=== PATIENT | female | born 1955 | race Caucasian/White ===

== ENCOUNTER 2025-02-06 09:45 | Outpatient (AMB) | payer OTHER, SELFPAY ==
--- OUTSIDE RECORDS SUMMARY | 2025-02-06 10:06 | XMS_ITS | Clinical Summary ---
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 1 HOUR PRIOR TO APPOINTMENT 02/05/20 24 Active ARIPiprazole (ABILIFY) 5 mg tablet Take 1 tablet (5 mg total) by mouth 1 (one) time each day. MOOD STABILITY 11/03/19 24 Active B complex tablet Take 1 tablet by mouth 1 (one) time each day. Active cholecalcifero l (VITAMIN D-3) 25 mcg (1,000 unit) tablet Take 1 tablet (1,000 Units total) by mouth 1 (one) time each day. 12/22/19 24 Active DULoxetine (CYMBALTA) [address] capsule Take 1 capsule (60 mg total) by mouth 2 (two) times a day. 02/19/20 21 Active fluticasone propionate (FLONASE) 50 mcg/actuation nasal spray Administer 1 spray into each nostril 2 (two) times a day if needed. for nasal congestion 02/13/20 24 Active guanFACINE (TENEX) 1 mg tablet Take 1.5 tablets (1.5 mg total) by mouth at bedtime. 01/18/20 24 Active hydrOXYzine HCL (ATARAX) 50 mg tablet Take 1 tablet (50 mg total) by mouth 2 (two) times a day if needed for anxiety. 08/17/19 19 Active mirtazapine (REMERON) 15 mg tablet Take 1 tablet (15 mg total) by mouth at bedtime. Active nystatin (MYCOSTATIN) 100,000 unit/gram powder Apply topically. 1 layer to areas or skin redness/rash of skin folds 05/09/20 23 Active propranoloL (INDERAL) 20 mg tablet Take 1 tablet (20 mg total) by mouth 1 (one) time each day. Active ixekizumab (Taltz Autoinjector, 3 Pack,) 80 mg/mL injection 01/09/20 24 Active losartan (COZAAR) 100 mg tablet TAKE 1 TABLET BY MOUTH EVERYDAY AT BEDTIME 90 tablet 1 10/31/19 25 Active simvastatin (ZOCOR) 20 mg tablet TAKE 1 TABLET BY MOUTH EVERYDAY AT BEDTIME 90 tablet 1 10/31/19 25 Active ibuprofen (ADVIL,MOTRIN) 800 mg tablet TAKE 1 TABLET BY MOUTH THREE TIMES A DAY NEEDED FOR MILD PAIN 180 tablet 11/15/19 25 Active rOPINIRole (REQUIP) 4 mg tabletIndicati ons:restless leg syndrome Take 1 tablet (4 mg total) by mouth at bedtime. 90 tablet 12/19/19 25 Active pregabalin (LYRICA) 50 mg capsuleIndicat ions:Fibromyal eden Take 1 capsule (50 mg total) by mouth 2 (two) times a day. Max Daily Amount: 100 mg 180 capsule 12/19/19 25 Active ondansetron (ZOFRAN) 4 mg tablet Take 1-2 tablets (4-8 mg total) by mouth every 8 (eight) hours if needed for nausea. 60 tablet 1 12/19/19 25 Active omeprazole (PriLOSEC) [address] capsule Take 1 capsule (20 mg total) by mouth 1 (one) time each day. Do not crush or chew. 30 capsule 5 12/19/19 25 025 Active diclofenac (VOLTAREN) 75 mg EC tablet Take 1 tablet (75 mg total) by mouth 2 (two) times a day if needed (pain). Do not crush, chew, or split. 180 tablet 3 12/19/19 25 026 Active cyclobenzaprin e (FLEXERIL) 10 mg tabletIndicati ons:Lumbar disc disease Take 1 tablet (10 mg total) by mouth 3 (three) times a day if needed for muscle spasms. 90 tablet 2 12/19/19 25 025 Active amLODIPine (NORVASC) 10 mg tablet Take 1 tablet (10 mg total) by mouth 1 (one) time each day. 90 tablet 1 01/24/20 25 Active amLODIPine (NORVASC) 10 mg tablet TAKE 1 TABLET BY MOUTH EVERY DAY 90 tablet 1 07/26/20 24 025 Discontinued Active Problems Problem Noted Date Diagnosed Date Cocaine abuse in remission ([facility] V24, [facility] V28) 10/31/2024 Panic disorder 10/31/2024 Sacroiliac joint dysfunction of both sides 10/31 Insomnia 10/31/2024 Infrarenal abdominal aortic aneurysm (AAA) without rupture ([facility] V24) 10/31/2024 Overview (10/31/2024): 10/01/24: Elevated velocities in distal abdominal aorta & right common iliac artery may suggest significant stenosis 03/05/24: Proximal abdominal aorta measures 2.9 x 3.0 x 2.6 cm consistent with borderline aneurysm 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 Maldonado, podiatry Gastroesophageal reflux disease without esophagi tis 09/12/2018 Hydronephrosis 12/26/2017 Overview (06/17/2024): Dr. Emerson - 12/14/17 - ultrasound ordered, if worsening consider nuclear drainage study; follow-up 6 weeks 02/27/19 - right sided fullness stable on recent ultrasound, repeat ultrasound in one year 03/20/2020 - recent imaging with right mild calyectasis, no love hydronephrosis, improved residual; follow-up in 1 year with renal ultrasound prior Ascending aorta dilation ([facility] V24) 8 Overview (10/31/2024): 10/31/24: Ascending aorta is dilated (4.0 cm); Sinus of Valsalva is dilated (3.2 cm). Echo 10/2018 - 4cm dilation Echo 10/2017 - Ascending 4cm and transverse 3.2cm aorta dilation Severe obesity (BMI 35.0-39. 9) with comorbidity ([facility] V24, [facility] V28) 06/27/2017 Vitamin D deficiency 08/18/2016 Right shoulder pain 05/03/2016 Overview (06/17/2024): [facility] - 04/20/16 - right shoulder injection, followup as needed Fibromyalgia 10/04/2013 Overview (06/17/2024): Dr. Cannon 10/02/13 - Lyrica 25 mg 3 times a day; ropinirole 4 mg daily; MRI ordered; followup month 11/18/14 - Doing well, continue medications, f/u 6 months 05/12/15 - continue Lyrica and ropinorole; followup 6 months 05/25/17 - doing well on Requip for restless leg syndrome; try reducing Lyrica dose; follow-up 6 months Assessment & Plan (09/07/2024 12:50 PM EST): Orders: pregabalin (LYRICA) 50 mg capsule; Take 1 capsule (50 mg total) by mouth 2 (two) times a day. Max Daily Amount: 100 mg Ambulatory referral to Neurology; Future HTN (hypertension) 09/25/2012 Restless leg syndrome 04/05/2012 Overview (06/17/2024): Neuro - on Requip Anxiety 02/20/2010 Overview (06/17/2024): Dr. Salazar - Psychiatrist - [facility] Back pain 02/20/2010 Overview (06/17/2024): [facility] - 08/27/10 - postoperative, spondylotic, and degenerative disc changes of the lumbar spine are seen again. No new exiting or transversing nerve root impingement is noted. 05/19 - Fentanyl 12mcg prescribed 06/19 - Fentanyl too sedating; MS Contin 15 mg 3 times a day prescribed 10/16/13 - Referral to Dr. Gonzalez for consideration of surgery; may consider starting a neuromodulator 11/13/13 - large L1 - 2 disc herniation crowding the cauda equina; requesting opinion from Dr. Wilkinson to consider surgery 05/22 - Left L3-L5 medial branch blocks 09/29/15 - no response to radiofrequency ablation, continue current opioid regimen, Cymbalta, and Lyrica; follow-up 2-[address] Hahn - 03/29/16 - prednisone taper, Butrans patch instead of OxyContin, continue Percocet as needed; follow-up 2-[address] Fernandez 09/21/18 - surgical options discussed 10/24 - laminectomy Depression 02/20/2010 Knee pain 02/20/2010 Overview (06/17/2024): 04/23/10 - right TKR by Dr. Jimenez 09/21 - arthroscopic surgery by Dr. Elam 03/14/14 - knee injection 04/17/14 - planning for elective knee replacement surgery; joint aspiration performed Hyperlipidemia 02/20/2010 Assessment & Plan (09/07/2024 12:50 PM EST): Orders: Lipid panel with reflex to direct LDL; Future Resolved Problems Problem Noted Date Diagnosed Date Resolved Date Complication of surgical procedure 10/31/2024 10/31/2024 Encounters Date Type Department Care Team Description 12/28/2024 9:40 AM EDT Ancillary Procedure Orthopedic Surgery - [place] [address] [facility] [address] [place] [address] 12/28/2024 9:30 AM EDT Office Visit Orthopedic Surgery [facility] [address] [facility] 160 [place] [phone] Carrie Lundberg MD Arthritis of left shoulder (Primary Dx) 12/19/[address] [phone] Enoch Zapata MD Referral 12/18/2024 3:00 PM EDT Office Visit [address] [phone] Enoch Zapata MD Primary hypertension (Primary Dx); Pure hypercholesterolemia ; Encounter for long-term (current) use of medications; Prediabetes; Fibromyalgia; Nausea; Lumbar disc disease; Restless leg syndrome 12/10/2024 11:30 AM EDT Office Visit Vascular Surgery [facility] [address] [place] [phone] Raza Kingston MD Swelling of left lower extremity (Primary Dx); Left leg pain 12/06/2024 9:30 AM EDT Office Visit Orthopedic Surgery [facility] 175 [facility] 140 [place] [phone] Deonna Cook PA Carpal tunnel syndrome of right wrist (Primary Dx); [facility] arthritis 12/06/2024 Telephone Adult [address] [phone] Enoch Zapata MD Referral (Neurolgy) 11/28/[address] [phone] Enoch Zapata MD Referral (Rheumatology referral) 11/20/2024 Nurse Triage [address] [phone] Enoch Zapata MD Nausea; Nasal Congestion; Back Pain from Last 3 Months Immunizations Name Administration Dates Next Due Td Tetanus diptheria (Tdvax) 7yo and older 03/27 Tdap Tetanus diptheria acell ular pertussis (Boostrix; Adacel) 7yo and older 09/25/2012 Surgical History Surgery Date Site/Laterality Comments BACK SURGERY 2005 PROCEDURE: HISTORICAL BACK SURGERY; COMMENT: Dr. Rinaldi ANKLE SURGERY 2006 PROCEDURE: HISTORICAL ANKLE SURGERY; COMMENT: Dr. Dior KNEE SURGERY 2009 Right PROCEDURE: HISTORICAL KNEE SURGERY; COMMENT: Arthroscopic OTHER SURGICAL HISTORY 12/27/2013 PROCEDURE: ---- OTHER ----; COMMENT: L1 laminectomy KNEE SURGERY Left PROCEDURE: HISTORICAL KNEE SURGERY COLONOSCOPY 01/17/2018 PROCEDURE: HISTORICAL COLONOSCOPY; COMMENT: negative UPPER GASTROINTESTINAL ENDOSCOPY 01/17/2018 PROCEDURE: UPPER GI ENDOSCOPY/EXAM; COMMENT: gastric and duodenal ulcers UPPER GASTROINTESTINAL ENDOSCOPY 05/16/2018 PROCEDURE: MT UPPER GI ENDOSCOPY PERFORMED; COMMENT: complete resolution of ulcers OTHER SURGICAL HISTORY 10/2018 PROCEDURE: ---- OTHER ----; COMMENT: Laminectomy - Dr. Fernandez HYSTERECTOMY 07/08/2023 N/A PROCEDURE: HISTORICAL HYSTERECTOMY BREAST BIOPSY Right PROCEDURE: BX BREAST; PERC NEEDLE CORE W/IMAG GUID Medical History Medical History Date Comments Anxiety 02/20/2010 DX:Anxiety Depression 02/20/2010 DX:Depression Back pain 02/20/2010 DX:Back pain Knee pain 02/20/2010 DX:Knee pain Hyperlipidemia DX:Hyperlipidemi a Tobacco abuse 09/08/2011 DX:Tobacco abuse Restless leg syndrome 04/05/2012 DX:Restles s leg syndrome Abnormal mammogram 08/17/2012 DX:Abnormal m ammogram Fibroadenoma of breast 2012 DX:Fibroa denoma of breast Fibromyalgia 10/04/2013 DX:Fibromyalgia; COMMENT: Dr. Cannon 10/02/13 - Lyrica 25 mg 3 times a day; ropinirole 4 mg daily; MRI ordered; followup month Morbid obesity with BMI of 4 0.0-44.9, adult (CMS/HCC V24, CMS/HCC V28) 06/27/2017 DX:Morbid obesity wit h BMI of 40.0-44.9, adult ([facility]) Family History Medical History Relation Name Comments Heart attack Father Breast cancer Mother Breast cancer Other mat cousin Other: ca brain Son 1 Colon cancer Neg Hx Ovarian cancer Neg Hx Relation Name Status Comments Father (Age 57) [place] at age 57 Mother (Age 86) [place] Other mat cousin Son 1 Son 2 (Age 23) Brain canc er Social History Tobacco Use Types Packs/Day Years Used Date Smoking Tobacco: Former Smokeless Tobacco: Never Tobacco Cessation:Counseling Given: Not Answered Alcohol Use Standard Drinks/Week Comments No 0 (1 standard drink = 0.6 oz pur e alcohol) Comments No Sex and Gender Information Value Date Recorded Sex Assigned at Not on file Legal Sex Female 5:32 AM EST Gender Identity Not on file Sexual Orientation Not on file Obstetrics History Last Filed Vital Signs Vital Sign Reading Time Taken Comments Blood Pressure 122/70 12/18/2024 3:05 PM EDT Pulse 91 12/18/2024 3:05 PM EDT Temperature 36.9 C (98.5 F) 12/18/2024 3:05 PM EDT Respiratory Rate 16 12/18/2024 3:05 PM EDT Oxygen Saturation 95% 12/18/2024 3:05 PM EDT Inhaled Oxygen Concentration - - Weight 96.6 kg (213 lb) 12/28/2024 9:23 AM EDT Height 160 cm (5' 2.99 ) 12/28/2024 9:23 AM EDT Body Mass Index 37.74 12/28/2024 9:23 AM EDT Plan of Treatment Upcoming Encounters Date Type Department Care Team (Late st Contact Info) Description 02/12/2025 8:20 AM EDT Consult Gastroenterology - [place] 175 [facility] 175 [facility] 200 [place] [phone] Jihan Cronin, JULISSA 175 [facility] 200 [place] [address] 02/22/2025 11:15 AM EDT Office Visit Orthopedic Surgery - [place] 160 175 [facility] 160 [place] [phone] Carrie Lundberg MD 175 [facility] 160 [place] [address] 03/18/2025 7:45 AM EDT Ancillary Procedure [facility] [address] 300 [facility] 101 [place] [phone] 03/19/2025 11:30 AM EDT Office Visit [facility] [place] [address] [place] [address] Enoch Zapata MD [address] [place] [address] 03/29/2025 9:30 AM EDT Office Visit Vascular Surgery - [place] 300 [facility] [address] [place] [address] Raza Kingston MD 300 [facility] [address] [place] [address] 04/02/2025 9:00 AM EDT Office Visit Orthopedic Surgery [facility] 160 [address] [facility] 160 [place] [phone] Carrie Lundberg MD [address] [address] 05/07/2025 10:00 AM EDT Appointment Radiology Department - [address] [phone] Health Maintenance Due Date Last Done Comments COVID-19 Vaccine (#1) 1962 Hepatitis A Vaccines (1 of 2 - Risk 2-dose series) 1976 Zoster Vaccines (1 of 2) 1976 Pneumococcal Vaccine: 50+ Years (1 of 1 - PCV) 2007 RSV Immunization Adult Patients (1 - Risk 60-74 years 1-dose series) 2017 Social Influencers of Health Screening 07/11/2022 Influenza Vaccine (#1) 2025 Depression Screening 09/07/2025 09/07/2024 Falls Risk Assessment 09/07/2025 09/07/2024 Medicare Annual Wellness Visit 09/07/2025 09/07/2024 Hypertension/CHF/CAD Annual BMP Blood Test 12/18/2025 12/18/2024, 09/07/2024, 05/11/2024, Additional history exists Breast Cancer Screening 04/20/2026 04/20/2024, 04/20 Colorectal Cancer Screening: Colonoscopy 01/18/2028 01/17/2018 Osteoporosis Screening (Bone Density Screening) 12/04/2028 12/04/2018 Cholesterol Screening (Lipid Panel) 12/18/2029 12/18/2024, 09/07/2024, 02/02/2024, Additional history exists DTaP,Tdap,and Td Vaccines (3 - Td or Tdap) 03/27/2034 03/27/2024, 09/25/2012 Hepatitis C Screening Completed 06/11/2013 HIB Vaccines Aged Out No longer eligi ble based on patient's age to complete this topic HPV Vaccines Aged Out No longer eligi ble based on patient's age to complete this topic Hepatitis B Vaccines Aged Out No long er eligible based on patient's age to complete this topic IPV Vaccines Aged Out No longer eligi ble based on patient's age to complete this topic MMR Vaccines Aged Out No longer eligi ble based on patient's age to complete this topic Meningococcal ACWY Vaccine Aged Out N o longer eligible based on patient's age to complete this topic Meningococcal B Vaccine Aged Out No l onger eligible based on patient's age to complete this topic RSV Immunization Patients Under 20 months Aged Out No longer eligible based on patient's age to complete this topic Varicella Vaccines Aged Out No longer eligible based on patient's age to complete this topic Procedures Procedure Name Priority Date/Time Associated Diagnosis Comments US ARTHROCENTESIS ASP INJ JOINT MAJOR RIGHT Routine 12/28/2024 9:36 AM EDT Arthritis of left shoulder MT ARTHROCENTESIS/ASPIR ATION/INJECTION MAJOR JOINT/BURSA W/O U/S GUIDANCE Routine 12/28/2024 9:30 AM EDT Arthritis of left shoulder LIPID PANEL WITH REFLEX TO DIRECT LDL Routine 12/18/2024 3:48 PM EDT Pure hypercholesterolemia COMPREHENSIVE METABOLIC PANEL Routine 12/18/2024 3:48 PM EDT Primary hypertension Encounter for long-term (current) use of medications HEMOGLOBIN A1C Routine 12/18/2024 3:48 PM EDT Prediabetes MT ARTHROCENTESIS/ASPIR ATION/INJECTION SMALL JOINT/BURSA WO U/S GUIDANCE Routine 12/06/2024 9:30 AM EDT [facility] arthritis DIAGNOSTIC MAMMOGRAPHY INCLUDING CAD BILATERAL Routine 04/20/2024 10:18 AM EDT Unspecified lump in the right breast, unspecified quadrant [facility] DEXA AXIAL SKELETON Routine 12/04/2018 5:36 PM EDT Asymptomatic menopausal state COLONOSCOPY Routine 01/17/2018 HEPATITIS C SCREENING Routine 06/11/2013 from Last 3 Months or Most Recently Relevant to Health Maintenance Results * US Arthrocentesis Asp Inj Joint Major Right (12/28/2024 9:36 AM EDT) Anatomical Region Laterality Modality Extremity Right Ultrasound Narrative 12/28/2024 9:55 AM EDT PROCEDURE Left Glenohumeral injection for osteoarthritis. Risk including infection, post-injection steriod flare, hypopigmentation, neurovascular injury and fat atrophy, were thoroughly discussed with the patient. The patients understood the risks and gave verbal consent for the procedure. The posteriorlateral shoulder was prepped with Chloro-prep after anatomical landmarks where palpated and visualized with ultrasound. Ethyle chloride was used as to topical anesthetic. Then using a 23-gauge 3-1/2 inch needle lidocaine 2 mL was used as a local anesthetic. Kenalog 40 mg and lidocaine 3 cc were injected into the joint using sterile technique under ultrasound guidance without complications. The patient tolerated the procedure well. Aftercare was thoroughly discussed with the patient. Images were recorded and will permanently stored in patients medical record. us Carrie Lundberg MD IMG US PROCEDURES Final Result * MT ARTHROCENTESIS/ASPIRATION/INJECTION MAJOR JOINT/BURSA W/O U/S GUIDANCE (12/28/2024 9:30 AM EDT) Narrative Carrie Lundberg MD - 12/28/2024 9:30 AM EDT Carrie Lundberg MD 12/28/2024 9:55 AM L Inj/Asp: L glenohumeral Indications: pain Details: 22 G needle, posterior approach (guidance: US guided) Medications: 3 mL lidocaine 1 %; 40 mg triamcinolone acetonide 40 mg/mL Outcome: tolerated well, no immediate complications Informed Consent: Laterality: Left Relevant images/test results available and reviewed: yes Health status cleared: Yes Procedure/treatment, purpose, treatment alternatives, risks/potential complications and benefits explained: yes Risk/complications/benefits details: Risks include bleeding, infection, increase in pain Patient questions answered: yes Patient agrees, verbalizes understanding, and wants to proceed: yes Consent given by: Patient Informed consent discussion completed by Physician/ASAD with patient: Verbal Pre-procedure timeout performed: yes us Carrie Lundberg MD IN CLINIC/BEDSIDE ORDERABLES F inal Result * (ABNORMAL) Lipid panel with reflex to direct LDL (12/18/2024 3:48 PM EDT) Cholesterol 171 0 - 200 mg/dL LAB CHEMISTRY METHOD [facility]24 6[facility] Triglycerides 198(H) 0 - 150 mg/dL LAB CHEMISTRY METHOD 12/18/2024 6:59 PM [facility] HDL 55 >=40 mg/dL LAB CHEMISTRY METHOD 12/18/2024 6:59 PM [facility] LDL Calculated 76 0 - 100 mg/dL LAB CHEMISTRY METHOD 12/18/2024 6:59 PM [facility] VLDL Cholesterol Ricardo 39.6 mg/dL LAB CHEMISTRY METHOD 12/18/2024 6:59 PM [facility] Non HDL Chol. (LDL+VLDL) 116 <145 mg/dL LAB CHEMISTRY METHOD 12/18/2024 6:59 PM [facility] Chol/HDL Ratio 3.1 0.0 - 4.4 LAB CHEMISTRY METHOD 12/18/2024 6:59 PM [facility] Blood Venous blood specimen / Unknown Venipuncture / Unknown 12/18/2024 3:48 PM EDT 12/18/2024 3:48 PM EDT us Enoch Zapata MD LAB BLOOD ORDERABLES Final Resu lt Performing Organization Address City/[facility]/ZIP Co de Phone Number [facility] [address] [place] [address], [place] [phone] * Hemoglobin A1c (12/18/2024 3:48 PM EDT) Pathologist [facility] Hemoglobin A1C 5.7 <6.5 % LAB CHEMISTRY METHOD 12/18/2024 10:25 PM EDT [facility] Mean Bld Glu Estim. 117 mg/dL LAB CHEMISTRY METHOD 12/18/2024 10:25 PM EDT [facility] Blood Venous blood specimen / Unknown Venipuncture / Unknown 12/18/2024 3:48 PM EDT 12/18/2024 3:48 PM EDT us Enoch Zapata MD LAB BLOOD ORDERABLES Final Resu lt Performing Organization Address [facility]/ZIP Co de Phone Number [facility] [address] [place] [address], [place] [phone] * (ABNORMAL) Comprehensive metabolic panel (12/18/2024 3:48 PM EDT) [facility] Sodium 139 133 - 145 mmol/L LAB CHEMISTRY METHOD 12/18/2024 6:57 PM EDT [facility] Potassium 4.1 3.5 - 5.5 mmol/L LAB CHEMISTRY METHOD 12/18/2024 6:57 PM EDT [facility] Chloride 108 96 - 110 mmol/L LAB CHEMISTRY METHOD 12/18/2024 6:57 PM EDT [facility] CO2 25 21 - 32 mmol/L LAB CHEMISTRY METHOD 12/18/2024 6:57 PM EDT [facility] Anion Gap 6 3 - 11 LAB CHEMISTRY METHOD 12/18/2024 6:57 PM EDT [facility] Glucose 75 70 - 100 mg/dL LAB CHEMISTRY METHOD 12/18/2024 6:57 PM [facility] BUN 26(H) 5 - 25 mg/dL LAB CHEMISTRY METHOD 12/18/2024 6:57 PM [facility] Creatinine 0.83 0.50 - 1.10 mg/dL LAB CHEMISTRY METHOD 12/18/2024 6:57 PM [facility] eGFR 77 >=60 mL/min/1. 73m2 LAB CHEMISTRY METHOD 12/18/2024 6:57 PM [facility] Comment:Calculation based on the Chronic Kidney Disease Epidemiology Collaboration (CKD-EPI) equation refit without adjustment for race. BUN/Creatinine Ratio 31.3 LAB CHEMISTRY METHOD 12/18/2024 6:57 PM [facility] Calcium 9.6 8.5 - 10.5 mg/dL LAB CHEMISTRY METHOD 12/18/2024 6:57 PM [facility] AST (SGOT) 16 10 - 42 unit/L LAB CHEMISTRY METHOD 12/18/2024 6:57 PM [facility] ALT (SGPT) 23 10 - 60 unit/L LAB CHEMISTRY METHOD 12/18/2024 6:57 PM [facility] Alkaline Phosphatase 94 42 - 121 unit/L LAB CHEMISTRY METHOD 12/18/2024 6:57 PM [facility] Total Protein 7.0 6.0 - 8.0 g/dL LAB CHEMISTRY METHOD 12/18/2024 6:57 PM [facility] Albumin 3.8 3.2 - 5.0 g/dL LAB CHEMISTRY METHOD 12/18/2024 6:57 PM [facility] Total Bilirubin 0.5 0.0 - 1.4 mg/dL LAB CHEMISTRY METHOD 12/18/2024 6:57 PM [facility] Blood Venous blood specimen / Unknown Venipuncture / Unknown 12/18/2024 3:48 PM EDT 12/18/2024 3:48 PM EDT Enoch Zapata MD LAB BLOOD ORDERABLES Final Resu lt [facility] ([facility] [[email or web address] [address] [place] [address], [place] [phone] * MT ARTHROCENTESIS/ASPIRATION/INJECTION SMALL JOINT/BURSA WO U/S GUIDANCE (12/06/2024 9:30 AM EDT) Narrative Deonna Cook PA - 12/06/2024 9:30 AM EDT ANN Alfredo 12/06/2024 11:02 AM Hand / UE Inj/Asp: R thumb [facility] for osteoarthritis Indications: pain Details: 25 G needle, dorsal approach Medications: 40 mg triamcinolone acetonide 40 mg/mL; 0.5 mL lidocaine 1 % Informed Consent: Laterality: Right Relevant images/test results available and reviewed: yes Health status cleared: Yes Procedure/treatment, purpose, treatment alternatives, risks/potential complications and benefits explained: yes Risk/complications/benefits details: Risks of infection, thinning of the skin, skin discoloration discussed. Discussed the possibility of increased pain, mild redness and swelling at injection site. Discussed uncommon side effect of facial flushing after cortisone injection. Patient may use ice, Tylenol or ibuprofen if they can take it. Benefits pain management Patient questions answered: yes Patient agrees, verbalizes understanding, and wants to proceed: yes Consent given by: Patient Informed consent discussion completed by Physician/ASAD with patient: Verbal Pre-procedure timeout performed: yes Deonna JUAREZ IN CLINIC/BEDSIDE ORDERABLES Final Result * DIAGNOSTIC MAMMOGRAPHY INCLUDING CAD BILATERAL (04/20/2024 10:18 AM EDT) Anatomical Region Laterality Modality Mammography 04/02/2024 5:32 PM EDT Narrative 04/20/2024 10:30 AM EDT This is a summary report. The complete report is available in the patient's medical record. If you cannot access the medical record, please contact the sending organization for a detailed fax or copy. Bilateral Diagnostic Digital Mammogram; Right Breast Ultrasound History: 1.8 cm mass posterior right breast noted on LDCT on 03/28/2024. Full field digital tomosynthesis mammography, reviewed with CAD, compared to previous mammogram of 12/30/2017. The breasts are composed of fatty and fibroglandular tissue. No suspicious mass, architectural distortion or suspicious calcifications are identified. Rounded focal asymmetry in the posterior upper outer right breast has been present and unchanged since 2018. Tiny adjacent nodule with associated biopsy clip is also unchanged. Ultrasound evaluation of the upper outer right breast was performed. There is a 2.3 x 2.4 x 0.9 cm cyst at the 9 o'clock position 10 cm from the nipple, this corresponds to the mammographic finding. IMPRESSION: : No mammographic evidence of malignancy. 2.3 x 2.4 x 0.9 cm cyst corresponds to the mammographic and CT finding in the outer right breast. BIRADS 2-benign Breast density: The breasts have scattered areas of fibroglandular density. 5 year breast cancer risk assessment 3.6 % Lifetime breast cancer risk assessment 12.1 % Breast cancer risk category Low (<15%) Location: [facility], [address] [place] [address], [id number], [phone] Procedure Note Ligia Smith MD - 05/23/2024 This is a summary report. The complete report is available in thepatient's medical record. If you cannot access the medical record, pleasecontact the sending organization for a detailed fax or copy. Bilateral Diagnostic Digital Mammogram; Right Breast Ultrasound History: 1.8 cm mass posterior right breast noted on LDCT on 03/28/2024. Full field digital tomosynthesis mammography, reviewed with CAD, comparedto previous mammogram of 12/30/2017. The breasts are composed of fatty andfibroglandular tissue. No suspicious mass, architectural distortion orsuspicious calcifications are identified. Rounded focal asymmetry in theposterior upper outer right breast has been present and unchanged [id number]. Tiny adjacent nodule with associated biopsy clip is alsounchanged. Ultrasound evaluation of the upper outer right breast was performed. There is a 2.3 x 2.4 x 0.9 cm cyst at the 9 o'clock position 10 cm fromthe nipple, this corresponds to the mammographic finding. IMPRESSION: : No mammographic evidence of malignancy. 2.3 x 2.4 x 0.9 cm cystcorresponds to the mammographic and CT finding in the outer rightbreast. BIRADS 2-benign Breast density: The breasts have scattered areas of fibroglandulardensity. 5 year breast cancer risk assessment 3.6 % Lifetime breast cancer risk assessment 12.1 % Breast cancer risk category Low (<15%) Location: [facility], [address] [place] [address], [address], [phone] us Enoch Zapata MD IMG BI PROCEDURES Final Result * [facility] DEXA AXIAL SKELETON (12/04/2018 5:36 PM EDT) Anatomical Region Laterality Modality Mammography 12/04/2018 9:49 AM EDT Narrative 12/04/2018 5:36 PM EDT [facility] Diagnostic Imaging Department [address] [place] [id number] Patient: ADRIENNERANDAELMIRA D.O.B./Age/Sex: 1955 - 63 - F Unit#: [id number] Location/Status: [facility]/REG CLI Mnemonic[facility] Ordering Physician: TEREZA FERNANDEZ MD, PHD [facility] Dexa Axial Skeleton - 12/04/18 - 1044 History: Low estrogen state due to menopause. Tobacco use. Back pain. Findings: Bone densitometry is performed utilizing dual energy x-ray absorptiometry (DXA) in the [employer] unit. The lumbar spine and proximal femora are evaluated in the AP projection. The FRAX questionaire was completed. The results indicate normal bone mineral density. Note that the lumbar spine DEXA results indicate an artificially elevated bone mineral density due to severe sclerotic degenerative changes in the spine. The detailed DEXA report will be mailed to the referring physician's office. DualFemur FRAX: 10-year Probability of Fracture: Major Osteoporotic 5.4 percent Hip 0.1 percent. IMPRESSION: Normal bone mineral density. [id number] Dictating Physician: EARNESTINE SAMPSON MD Electronically Signed by: EARNESTINE SAMPSON MD Dic Date/Time: 12/04/181732 Sign date/Time: 12/04/181735 Procedure Note Earnestine Sampson MD - 07/27/2022 [facility] Diagnostic Imaging Department [address] [place] [address] Patient: ELMIRA MAURICIO Fox Richard/Age/Sex: 1955 - 63 - F Unit#: [id number] Location/Status: [facility]/REG CLI Mnemonic/Ordering Site: [facility] Ordering Physician: TEREZA FERNANDEZ MD, PHD [facility] Dexa Axial Skeleton - 12/04/184 History: Low estrogen state due to menopause. Tobacco use. Back pain. Findings: Bone densitometry is performed utilizing dual energy x-ray absorptiometry(DXA) in the [employer] unit. The lumbar spine and proximal femora areevaluated in the AP projection. The FRAX questionaire was completed. The results indicate normal bone mineral density. Note that the lumbarspine DEXA results indicate an artificially elevated bone mineral density dueto severe sclerotic degenerative changes in the spine. The detailed DEXAreport will be mailed to the referring physician's office. DualFemur FRAX: 10-year Probability of Fracture: Major Osteoporotic 5.4percent Hip 0.1 percent. IMPRESSION: Normal bone mineral density. [id number] Dictating Physician: EARNESTINE SAMPSON MD Electronically Signed by: EARNESTINE SAMPSON MD Dic Date/Time: 12/04/181732 Sign date/Time: 12/04/181735 Tereza Fernandez MD IMG BI PROCEDURES Final R esult * Colonoscopy (01/17/2018) Colonoscopy no interpretation , abstracted Anatomical Region Laterality Modality Other Historical Provider HEALTH MAINTENANCE Final Result * Hepatitis C Screening (06/11/2013) Pathologist [facility] Hepatitis C Screening abstracted Historical Provider HEALTH MAINTENANCE Final Result from Last 3 Months or Most Recently Relevant to Health Maintenance Insurance 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
--- OUTSIDE RECORDS SUMMARY | 2025-02-06 10:06 | XMS_ITS | Patient Health Record ---
[facility] Address [address] [place] [address] Care Team Providers Care Family Practice Medical Doctor Name Role Phone LUIS ENRIQUE FRANCO Unavailable [phone] Allergies Allergen (clinical drug ingredient) Drug/Non Drug Allergy documented on EMR Reaction Allergy Type Onset Date Status erythromycin Erythromycin Unknown Drug Allergy A ctive Reason For Referral No Information Medications Medication SIG (Take, Route, Frequency, Duration) Notes Start Date End Date Status Mounjaro 2.5 MG/0.5ML 2.5mg Subcutaneous weekly; Duration: 30 days Active buPROPion HCl 75 MG TAKE 1 TABLET BY ERNESTO EVERY DAY; Duration: 90 Active Naltrexone HCl 50 MG 1 tablet Orally Onc e a day; Duration: 90 days 03/08/2024 Active Mounjaro 12.5 MG/0.5ML inject 12.5 Subcutaneous weekly; Duration: 30 days dx-e11.9 dx code E11.9 09/01/2023 Active Gabapentin 300 MG 1 capsule Orally Onc e a day Active Social History Tobacco Use: Social History Observation Description Date Details (start date - stop date) Former Smoker NA - NA Tobacco Use/Smoking Question Answer Notes Are you a former smoker How long has it been since you last smoked? 6-12 months Alcohol Screen (Audit-C) Question Answer Notes Did you have a drink containing alcohol in the p ast year? No Points 0 Interpretation Negative Problems Problem Type SNOMED Code ICD Code Onset Dates Problem Status W/U Status Risk Notes Problem Obesity due to exces s calories (264452809) Other obesity due to excess calories (E66.09) Active confirmed Problem Hyperlipidemia (84441568) Hyperlipidemia , unspecified (E78.5) Active confirmed Problem Chronic pain syndrom e (601718332) Chronic pain syndrome (G89.4) Active confirmed Problem Essential hypertensi on (54778518) Essential (primary) hypertension (I10) Active confirmed Problem Fibromyalgia (048622332) Fibromyalgia (M79.7) Active confirmed Problem Body mass index 40+ - severely obese (545458022) Body mass index (BMI) 45.0-49.9, adult (Z68.42) Active confirmed Problem Pure hypercholesterolemia (792234346) Pure hypercholester olemia, unspecified (E78.00) Active confirmed Problem Body mass index 35.0 0 to 39.99 (960324237502272) Body mass index [BMI] 36.0-36.9, adult (Z68.36) Active confirmed Problem Body mass index 40+ - severely obese (398125302) BMI 45.0-49.9, adult (Z68.42) Active confirmed Problem Morbid obesity (677540978) Morbid obesity due to excess calories (E66.01) Active confirmed Vital Signs Heart Rate 74 /min 03/08/2024 Oximetry 94 % 03/08/2024 Blood pressure diastolic 82 mm Hg 03/08/2024 Height 63 in 03/08/2024 Blood pressure systolic 126 mm Hg 03/08/2024 Weight 207 lbs 03/08/2024 BMI 36.66 kg/m2 03/08/2024 Encounters Encounter Location Date Provider Diagnosis [facility] [address] 03/08/2024 LUIS ENRIQUE FRANCO Essential (primary) hypertension I10 ; Pure hypercholesterolemia, unspecified E78.00 ; Chronic pain syndrome G89.4 ; Fibromyalgia M79.7 ; Prediabetes R73.03 ; Other obesity due to excess calories E66.09 and Body mass index [BMI] 36.0-36.9, adult Z68.36 [facility] [address] [address] 03/09/2024 LUIS ENRIQUE FRANCO [facility] [address] [address] 2024 LUIS ENRIQUE FRANCO [facility] [address] [address] 05/07/2024 LUIS ENRIQUE FRANCO [facility] [address] [address] 05/09/2024 LUIS ENRIQUE FRANCO Assessments Encounter Date Diagnosis (ICD Code) Assessment Notes Treatment Notes Treatment Clinical Notes Section Notes 03/08/2024 Essential (primary) hypertension (ICD-10 - I10) #Weight Management 03/08/2024 We discussed stress and cortisol management during this tough time for her A1c in office 5.3, euglycemic* thriving No longer can get Mounjaro due to insurance restrictions Will start generic formulations of Contrave Continued emphasis on strict diet and increasing exercise as tolerated. 6 week f.u Total time spent today was 30 minutes of which greater than 50% was spent on coordinating and counseling Patient has been found to be obese with a BMI of (36). Patient has class (2) obesity. We are a board certified obesity and weight management practice Patient has trialed behavioral modification, dietary restrictions and exercise for a minimum of 6 months The most recent [place] [employer] of clinical endocrinologists and [place] [employer] of endocrinology guidelines recommend patients who [...] track activity level. Consider using apps like ezNetPayise, Greatistpal, lose it, stick as needed for self-monitoring and weight management. Consider group exercises. Consider hiring a personal injury litigation paralegal. Regular exercise is mcginnis to sustainable health [...] counseling and psychiatry and Dr Tejeda at [facility]. We would like to cover regular topics [...] software and direct typing Please excuse inadvertent molecular biology professor or typing errors, or uncorrected word substitutions Although every attempt has been made by the provider to proofread this document, occasional misspellings and typographical errors may still be present Due to the previous pandemic, and the use of personal protective equipment (PPE) This may decrease voice recognition accuracy Inadvertent molecular biology professor errors may occur 03/08/2024 Pure hypercholesterol emia, unspecified (ICD-10 - E78.00) #Weight Management 03/08/2024 We discussed stress and cortisol management during this tough time for her A1c in office 5.3, euglycemic* thriving No longer can get Mounjaro due to insurance restrictions Will start generic formulations of Contrave Continued emphasis on strict diet and increasing exercise as tolerated. 6 week f.u Total time spent today was 30 minutes of which greater than 50% was spent on coordinating and counseling Patient has been found to be obese with a BMI of (36). Patient has class (2) obesity. We are a board certified obesity and weight management practice Patient has trialed behavioral modification, dietary restrictions and exercise for a minimum of 6 months The most recent [place] [employer] of clinical endocrinologists and [place] [employer] of endocrinology guidelines recommend patients who [...] track activity level. Consider using apps like StreetfaireHD, Greatistpal, lose it, stick as needed for self-monitoring and weight management. Consider group exercises. Consider hiring a personal injury litigation paralegal. Regular exercise is mcginnis to sustainable health [...] counseling and psychiatry and Dr Tejeda at [facility]. We would like to cover regular topics [...] software and direct typing Please excuse inadvertent molecular biology professor or typing errors, or uncorrected word substitutions Although every attempt has been made by the provider to proofread this document, occasional misspellings and typographical errors may still be present Due to the previous pandemic, and the use of personal protective equipment (PPE) This may decrease voice recognition accuracy Inadvertent molecular biology professor errors may occur 03/08/2024 Chronic pain syndrome (ICD-10 - G89.4) #Weight Management 03/08/2024 We discussed stress and cortisol management during this tough time for her A1c in office 5.3, euglycemic* thriving No longer can get Mounjaro due to insurance restrictions Will start generic formulations of Contrave Continued emphasis on strict diet and increasing exercise as tolerated. 6 week f.u Total time spent today was 30 minutes of which greater than 50% was spent on coordinating and counseling Patient has been found to be obese with a BMI of (36). Patient has class (2) obesity. We are a board certified obesity and weight management practice Patient has trialed behavioral modification, dietary restrictions and exercise for a minimum of 6 months The most recent [place] [employer] of clinical endocrinologists and [place] [employer] of endocrinology guidelines recommend patients who [...] track activity level. Consider using apps like StreetfaireHD, Greatistpal, lose it, stick as needed for self-monitoring and weight management. Consider group exercises. Consider hiring a personal injury litigation paralegal. Regular exercise is mcginnis to sustainable health [...] counseling and psychiatry and Dr Tejeda at [facility]. We would like to cover regular topics [...] software and direct typing Please excuse inadvertent molecular biology professor or typing errors, or uncorrected word substitutions Although every attempt has been made by the provider to proofread this document, occasional misspellings and typographical errors may still be present Due to the previous pandemic, and the use of personal protective equipment (PPE) This may decrease voice recognition accuracy Inadvertent molecular biology professor errors may occur 03/08/2024 Fibromyalgia (ICD-10 - M79.7) #Weight Management 03/08/2024 We discussed stress and cortisol management during this tough time for her A1c in office 5.3, euglycemic* thriving No longer can get Mounjaro due to insurance restrictions Will start generic formulations of Contrave Continued emphasis on strict diet and increasing exercise as tolerated. 6 week f.u Total time spent today was 30 minutes of which greater than 50% was spent on coordinating and counseling Patient has been found to be obese with a BMI of (36). Patient has class (2) obesity. We are a board certified obesity and weight management practice Patient has trialed behavioral modification, dietary restrictions and exercise for a minimum of 6 months The most recent [place] [employer] of clinical endocrinologists and [place] [employer] of endocrinology guidelines recommend patients who [...] track activity level. Consider using apps like StreetfaireHD, myfitnesspal, lose it, stick as needed for self-monitoring and weight management. Consider group exercises. Consider hiring a personal injury litigation paralegal. Regular exercise is mcginnis to sustainable health [...] counseling and psychiatry and Dr Tejeda at [facility]. We would like to cover regular topics [...] software and direct typing Please excuse inadvertent molecular biology professor or typing errors, or uncorrected word substitutions Although every attempt has been made by the provider to proofread this document, occasional misspellings and typographical errors may still be present Due to the previous pandemic, and the use of personal protective equipment (PPE) This may decrease voice recognition accuracy Inadvertent molecular biology professor errors may occur 03/08/2024 Prediabetes (ICD-10 - R73.03) #Weight Management 03/08/2024 We discussed stress and cortisol management during this tough time for her A1c in office 5.3, euglycemic* thriving No longer can get Mounjaro due to insurance restrictions Will start generic formulations of Contrave Continued emphasis on strict diet and increasing exercise as tolerated. 6 week f.u Total time spent today was 30 minutes of which greater than 50% was spent on coordinating and counseling Patient has been found to be obese with a BMI of (36). Patient has class (2) obesity. We are a board certified obesity and weight management practice Patient has trialed behavioral modification, dietary restrictions and exercise for a minimum of 6 months The most recent [place] [employer] of clinical endocrinologists and [place] [employer] of endocrinology guidelines recommend patients who [...] reading books called The Food Rules by aMnuel Goodwin and Eat Fat Get Lean by [...] track activity level. Consider using apps like StreetfaireHD, myfitnesspal, lose it, stick as needed for self-monitoring and weight management. Consider group exercises. Consider hiring a personal injury litigation paralegal. Regular exercise is mcginnis to sustainable health [...] counseling and psychiatry and Dr Tejeda at [facility]. We would like to cover regular topics [...] software and direct typing Please excuse inadvertent molecular biology professor or typing errors, or uncorrected word substitutions Although every attempt has been made by the provider to proofread this document, occasional misspellings and typographical errors may still be present Due to the previous pandemic, and the use of personal protective equipment (PPE) This may decrease voice recognition accuracy Inadvertent molecular biology professor errors may occur 03/08/2024 Other obesity due to excess calories (ICD-10 - E66.09) #Weight Management 03/08/2024 We discussed stress and cortisol management during this tough time for her A1c in office 5.3, euglycemic* thriving No longer can get Mounjaro due to insurance restrictions Will start generic formulations of Contrave Continued emphasis on strict diet and increasing exercise as tolerated. 6 week f.u Total time spent today was 30 minutes of which greater than 50% was spent on coordinating and counseling Patient has been found to be obese with a BMI of (36). Patient has class (2) obesity. We are a board certified obesity and weight management practice Patient has trialed behavioral modification, dietary restrictions and exercise for a minimum of 6 months The most recent [place] [employer] of clinical endocrinologists and [place] [employer] of endocrinology guidelines recommend patients who [...] track activity level. Consider using apps like 7 mionute excercise, myfitnesspal, lose it, stick as needed for self-monitoring and weight management. Consider group exercises. Consider hiring a personal injury litigation paralegal. Regular exercise is mcginnis to sustainable health [...] counseling and psychiatry and Dr Tejeda at [facility]. We would like to cover regular topics [...] software and direct typing Please excuse inadvertent molecular biology professor or typing errors, or uncorrected word substitutions Although every attempt has been made by the provider to proofread this document, occasional misspellings and typographical errors may still be present Due to the previous pandemic, and the use of personal protective equipment (PPE) This may decrease voice recognition accuracy Inadvertent molecular biology professor errors may occur 03/08/2024 Body mass index [BMI] 36.0-36.9, adult (ICD-10 - Z68.36) #Weight Management 03/08/2024 We discussed stress and cortisol management during this tough time for her A1c in office 5.3, euglycemic* thriving No longer can get Mounjaro due to insurance restrictions Will start generic formulations of Contrave Continued emphasis on strict diet and increasing exercise as tolerated. 6 week f.u Total time spent today was 30 minutes of which greater than 50% was spent on coordinating and counseling Patient has been found to be obese with a BMI of (36). Patient has class (2) obesity. We are a board certified obesity and weight management practice Patient has trialed behavioral modification, dietary restrictions and exercise for a minimum of 6 months The most recent [place] [employer] of clinical endocrinologists and [place] [employer] of endocrinology guidelines recommend patients who [...] track activity level. Consider using apps like StreetfaireHD, Greatistpal, lose it, stick as needed for self-monitoring and weight management. Consider group exercises. Consider hiring a personal injury litigation paralegal. Regular exercise is mcginnis to sustainable health [...] counseling and psychiatry and Dr Tejeda at [facility]. We would like to cover regular topics [...] software and direct typing Please excuse inadvertent molecular biology professor or typing errors, or uncorrected word substitutions Although every attempt has been made by the provider to proofread this document, occasional misspellings and typographical errors may still be present Due to the previous pandemic, and the use of personal protective equipment (PPE) This may decrease voice recognition accuracy Inadvertent molecular biology professor errors may occur Plan Of Treatment No Information Insurance Providers Payer Name Payer Address Payer Phone Subscriber Number Group Number Insured Name Patient Relationship to Insured Coverage Start Date Coverage End Date [employer] Medicare Value PPO [address] [place] [address] [id number] JESUS LOPEZ Self - patient is the insured Medical (General) History Medical History History ICD Code hypertension hypercholesterolemia restless leg syndrome depression insomnia Surgical History Surgery Date(Month/Year) right knee replacement left knee replacement
--- NOTE | 2025-02-06 10:14 | A.OFFVIS_ITS ---
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 She reports pain in the neck pain in the lower back pain in the left groin. She reports pain with prolonged sitting exacerbation and bending over exacerbation. She can not sleep normally because of her pain she is able to do some activities of daily living, she can take care of herself and she can function normally. 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 Weather changes in movements aggravate her pain. Oral medications make her pain better. She reported that she was on oxycodone 20 mg every 6 hours. In terms of tissue damage he describes her pain as tugging, pulling, wrenching, dull, sore, hurting, aching, tiring, exhausting, sickening, suffocating, spreading, radiating, piercing. She had multiple images of her lumbar spine 1 of the MRIs from 2022 she brought with herself. The report is from [facility]. On that MRI there is demonstration of the Modic type 1 changes at L3-L4 and Modic type 3 endplate changes at L2-L3. However patient states that the risk more fresh MRI available at [place]. I recommended the patient to bring us the report and the disc of that MRI. She was subject of multiple physical therapy with [facility] none of them were helpful for her. She tried 10s unit it was not helpful for her. She was under care of [facility] pain management received multiple nerve blocks and epidural steroid injections and even attempted spinal cord stimulator trial. According to the patient none was helpful for the patient's pain. She has past medical history of hypertension, prediabetes and arthritis. Her past surgical history significant for 2 back surgeries which patient thinks made her worse. She also had bilateral knee replacement. She does not complain on pain in the knees. She denies smoking cigarettes drinking alcohol she drinks 2-3 cups of coffee a day and she admits cannabis daily. Review of Systems Const All systems reviewed & are unremarkable except as noted in HPI and below ENT Reports Normal hearing present Neuro Reports Normal hearing present, Denies Abnormal speech present, Denies confusion and Denies Sensory deficit (Neuro) Psych Denies confusion Physical Exam Vital Signs: Last Vital Signs Pulse 89 02/06/25 10:17 Resp 18 02/06/25 10:17 BP 136/78 02/06/25 10:17 Pulse Ox 97 02/06/25 10:17 Oxygen Delivery Method Room Air 02/06/25 10:17 BMI result Body Mass Index 40.0 Const General: no acute distress; No confusion Nutritional Appearance: obese morbidly obese Orientation/consciousness: patient oriented x3 and No confusion Eyes General: appearance normal, both eyes and all related structures Pupils: Equal, round and reactive pupils present EOM: EOMs intact bilaterally Neck Neck: Yes full ROM Chest Chest palpation & inspection: normal inspection of the chest Resp Effort & Inspection: normal respiratory effort, able to speak in complete sentences, normal respiratory pattern, no audible wheezes and no cough Cardio Jugular venous distension: no JVD GI Inspection: Yes normal to inspection Back/Spine/Pelvis Other: There is very well-healed thin scar in the projection of the L4-5 lumbar vertebras, there is no redness no pathological discharge. There is no tenderness on palpation in the projection of the scar. Neuro General: patient oriented x3, gait normal and No confusion Cranial nerves: Yes CN's II-XII intact bilaterally, Yes Equal, round and reactive pupils present, Yes Normal hearing present and Yes Ability to bilaterally elevate shoulders present Speech: No Abnormal speech present Gait exam (Neuro): Normal gait present Motor exam (neuro): 5/5 motor strength present throughout Sensory Exam: No Sensory deficit (Neuro) Extrem General: No pedal edema Psych Speech and movement: Normal speech and movement present Affect: normal affect Attitude: cooperative Thought process: Normal thought process present Thought content: Normal thought content present Insight: Good insight present (Psych) Judgement: Good judgement present (Psych) Assessment & Plan Assessment & Plan (1) Postlaminectomy syndrome: Code(s): M96.1 - Postlaminectomy syndrome, not elsewhere classified Category: Medical (2) Chronic pain syndrome: Code(s): G89.4 - Chronic pain syndrome Category: Medical (3) Vertebrogenic low back pain: Code(s): M54.51 - Vertebrogenic low back pain Category: Medical Plan to evaluate progression of the Modic type changes in her lumbar spine I would recommend her to get disc and the report of her MRI which was performed at [facility]. She will bring it in 1 month appointment. We also will obtain the information from [facility] pain management about injections and procedures this patient received so far at that organization. I will see this patient in 1 month. If the patient Modic type changes did not progress to type 3 at L3-L4 level I can offer her intercept procedure. I will evaluate the [facility] pain management injections she received and will see what other injections could be done to help this patient's pain. I will see this patient in 1 month. Coding Level of Care Code New Pt Level 3 (98772) Diagnoses Postlaminectomy syndrome M96.1 Chronic pain syndrome G89.4 Vertebrogenic low back pain M54.51
[2025-02-06 10:17] VITALS: BP 136/78; PULSE 89; RESP 18; O2SAT 97; BMI 40.0
== END 2025-02-06 10:37 | disposition home or self-care (01) ==
LOC: HO.PMC 09:45
PROVIDERS: PCP Internal Medicine; Referring Provider Internal Medicine; Visit Provider Anesthesiology
DX: M96.1 Postlaminectomy syndrome, not elsewhere classified (principal); G89.4 Chronic pain syndrome; M54.51 Vertebrogenic low back pain
CPT/HCPCS: 99203

== ENCOUNTER → 2025-02-06 09:45 | Outpatient (BNVA) | payer OTHER, SELFPAY | PROVIDERS: PCP Internal Medicine; Referring Provider Internal Medicine; Visit Provider Anesthesiology | DX: M96.1 Postlaminectomy syndrome, not elsewhere classified (principal); M54.51 Vertebrogenic low back pain; G89.4 Chronic pain syndrome | CPT/HCPCS: 99202 ==

== ENCOUNTER 2025-03-28 09:57 | Outpatient (AMB) | payer OTHER, SELFPAY ==
--- OUTSIDE RECORDS SUMMARY | 2024-02-21 06:45 | XMS_ITS ---
Author Organization [facility] [address] Address [address] [place] [address] Care Team Providers Care Vending Machine Collector Name Role Phone LUIS ENRIQUE FRANCO Unavailable [phone] Encounters Encounter Location Date Provider Diagnosis [facility] [address] [address] 02/21/2024 LUIS ENRIQUE FRANCO Plan Of Treatment No Information Progress Notes * JESUS LOPEZ SDOB: [birth year] (70 yo F)Acc No.[id number]:02/21/2024 Patient: Fox COOKKEYONNA JESUS Fox Provider: Alvin FRANCO NP :1955 A ge:68 Y S ex:Female Date:02/21/2024 Address:[address] [place], [place] [phone] Subjective: * Chief Complaints: * * Medical History: Objective: * Vitals: Assessment: Plan: * Treatment: * Images: Billing Information: * Visit Code: * Procedure Codes: * Electronic signature of PRANAY FRANCO on 03/28/2025 at 11:22 AM EDT Sign off status: Pending * Provider: Alvin FRANCO NP Date: 02/21/2024 Generated for Printi ng/Faregulog/eTransmitting on: 03/28/2025 11:22 AM EDT
--- NOTE | 2025-03-28 10:13 | MHC.OFFVIS ---
Vital Signs 03/28/25 10:15 Weight 231 lb BP 172/8 H Blood Pressure Location Lt brachial Position Sitting Respiration 20 Pulse 83 Pulse Source Pulse Oximeter Pulse Oximetry (%) 94 Oxygen Delivery Method Room Air Intake Visit Reasons: 1 month follow up Allergies acetaminophen (From Tylenol) Allergy (Intermediate, Verified 03/28/25 10:16) Rash erythromycin base Allergy (Intermediate, Verified 03/28/25 10:16) Rash HPI Comments Details: Elmira is back in my office with the MRI disc she presented to us as a recent MRI. She also brought to us the report of this MRI however it does not reflect on any Modic changes. I need to examined this MRI myself, I tried to see this MRI with my personal CD reader however I was not able to upload the images. We would need to upload the images in the radiology department's. Nevertheless I offered the patient to perform L3-L4 and possibly L5 intercept RFA. Patient agreed to go for the procedure. I will establish the final levels of the procedure the very moment I will see the MRI myself. I also recommended her to provide for me the injections she had at [facility] pain management by herself. Unfortunately our request to obtain those records from [facility] fail to deliver us the records. Prior: Severe pain in the neck pain in the lower back pain in the left groin. She reports pain with prolonged sitting exacerbation and bending over exacerbation. She had multiple images of her lumbar spine 1 of the MRIs from 2022 she brought with herself. The report is from [facility]. On that MRI there is demonstration of the Modic type 1 changes at L3-L4 and Modic type 3 endplate changes at L2-L3. However patient states that the risk more fresh MRI available at [place]. I recommended the patient to bring us the report and the disc of that MRI. She was subject of multiple physical therapy with [facility] none of them were helpful for her. She tried 10s unit it was not helpful for her. She was under care of [facility] pain management received multiple nerve blocks and epidural steroid injections and even attempted spinal cord stimulator trial. According to the patient none was helpful for the patient's pain. Review of Systems Const All systems reviewed & are unremarkable except as noted in HPI and below ENT Reports Normal hearing present Neuro Reports Normal hearing present, Denies Abnormal speech present, Denies confusion and Denies Sensory deficit (Neuro) Psych Denies confusion Physical Exam Vital Signs: Last Vital Signs Pulse 83 03/28/25 10:15 Resp 20 03/28/25 10:15 BP 172/8 H 03/28/25 10:15 Pulse Ox 94 03/28/25 10:15 Oxygen Delivery Method Room Air 03/28/25 10:15 Const General: no acute distress; No confusion Nutritional Appearance: obese morbidly obese Orientation/consciousness: patient oriented x3 and No confusion Eyes General: appearance normal, both eyes and all related structures Pupils: Equal, round and reactive pupils present EOM: EOMs intact bilaterally Neck Neck: Yes full ROM Chest Chest palpation & inspection: normal inspection of the chest Resp Effort & Inspection: normal respiratory effort, able to speak in complete sentences, normal respiratory pattern, no audible wheezes and no cough Cardio Jugular venous distension: no JVD GI Inspection: Yes normal to inspection Back/Spine/Pelvis Other: There is very well-healed thin scar in the projection of the L4-5 lumbar vertebras, there is no redness no pathological discharge. There is no tenderness on palpation in the projection of the scar. Neuro General: patient oriented x3, gait normal and No confusion Cranial nerves: Yes CN's II-XII intact bilaterally, Yes Equal, round and reactive pupils present, Yes Normal hearing present and Yes Ability to bilaterally elevate shoulders present Speech: No Abnormal speech present Gait exam (Neuro): Normal gait present Motor exam (neuro): 5/5 motor strength present throughout Sensory Exam: No Sensory deficit (Neuro) Extrem General: No pedal edema Psych Speech and movement: Normal speech and movement present Affect: normal affect Attitude: cooperative Thought process: Normal thought process present Thought content: Normal thought content present Insight: Good insight present (Psych) Judgement: Good judgement present (Psych) Assessment & Plan Assessment & Plan (1) Postlaminectomy syndrome: Code(s): M96.1 - Postlaminectomy syndrome, not elsewhere classified Category: Medical (2) Chronic pain syndrome: Code(s): G89.4 - Chronic pain syndrome Category: Medical (3) Vertebrogenic low back pain: Code(s): M54.51 - Vertebrogenic low back pain Category: Medical Plan We discussed today again performance of the intercept procedure for L3-L4 and possibly L5 levels for this patient. I explained to her that some of the pain could be improved by this procedure. I explained the nature of the procedure in thorough details. Patient had multiple questions and all of them were answered to her satisfaction. Risks and benefits were carefully explained to the patient. I also explained to the patient that if the intercept RFA will not help the pain of this patient I will consider pain pump trials for her. She had in the past a trial of spinal cord stimulator with [facility] pain management however it was not effective to control her pain. Coding Level of Care Code New Pt Level 3 (66078) Diagnoses Postlaminectomy syndrome M96.1 Chronic pain syndrome G89.4 Vertebrogenic low back pain M54.51
[2025-03-28 10:15] VITALS: BP 172/8; PULSE 83; RESP 20; O2SAT 94
--- OUTSIDE RECORDS SUMMARY | 2025-03-28 11:23 | XMS_ITS | Clinical Summary ---
Author Organization [place] [address] [facility] Address [address] [place], [place] [address] [address] Phone Care Team Providers Care Tonsorial Artist Name Role Phone Enoch Zapata MD Primary Care Provider [phone] Allergies Active Allergy Reactions Criticality Noted Date Comments Erythromycin 02/20/2010 Acetaminophen 08/30/2024 Stomach ulcer Medications amoxicillin (AMOXIL) 500 mg tablet 4 tablets (2,000 mg total). 1 HOUR PRIOR TO APPOINTMENT Active ARIPiprazole (ABILIFY) 5 mg tablet Take 1 tablet (5 mg total) by mouth 1 (one) time each day. MOOD STABILITY 024 Active B complex tablet Take 1 tablet by mouth 1 (one) time each day. Active cholecalciferol (VITAMIN D-3) 25 mcg (1,000 unit) tablet Take 1 tablet (1,000 Units total) by mouth 1 (one) time each day. Active DULoxetine (CYMBALTA) [address] capsule Take 1 capsule (60 mg total) by mouth 2 (two) times a day. 021 Active fluticasone propionate (FLONASE) 50 mcg/actuation nasal spray Administer 1 spray into each nostril 2 (two) times a day if needed. for nasal congestion Active guanFACINE (TENEX) 1 mg tablet Take 1.5 tablets (1.5 mg total) by mouth at bedtime. 024 Active hydrOXYzine HCL (ATARAX) 50 mg tablet Take 1 tablet (50 mg total) by mouth 2 (two) times a day if needed for anxiety. 019 Active mirtazapine (REMERON) 15 mg tablet Take 1 tablet (15 mg total) by mouth at bedtime. Active nystatin (MYCOSTATIN) 100,000 unit/gram powder Apply topically. 1 layer to areas or skin redness/rash of skin folds 023 Active propranoloL (INDERAL) 20 mg tablet Take 1 tablet (20 mg total) by mouth 1 (one) time each day. Active ixekizumab (Taltz Autoinjector, 3 Pack,) 80 mg/mL injection 024 Active simvastatin (ZOCOR) 20 mg tablet TAKE 1 TABLET BY MOUTH EVERYDAY AT BEDTIME 90 tablet 1 025 Active ibuprofen (ADVIL,MOTRIN) 800 mg tablet TAKE 1 TABLET BY MOUTH THREE TIMES A DAY NEEDED FOR MILD PAIN 180 tablet 025 Active rOPINIRole (REQUIP) 4 mg tabletIndications :restless leg syndrome Take 1 tablet (4 mg total) by mouth at bedtime. 90 tablet 025 Active omeprazole (PriLOSEC) [address] capsule Take 1 capsule (20 mg total) by mouth 1 (one) time each day. Do not crush or chew. 30 capsule 5 025 2024 Active diclofenac (VOLTAREN) 75 mg EC tablet Take 1 tablet (75 mg total) by mouth 2 (two) times a day if needed (pain). Do not crush, chew, or split. 180 tablet 3 025 2025 Active Additional Information Patient not taking.Reported on 03/19/2025 cyclobenzaprine (FLEXERIL) 10 mg tabletIndications :Lumbar disc disease Take 1 tablet (10 mg total) by mouth 3 (three) times a day if needed for muscle spasms. 90 tablet 2 025 Active Additional Information Patient not taking.Reported on 03/19/2025 amLODIPine (NORVASC) 10 mg tablet Take 1 tablet (10 mg total) by mouth 1 (one) time each day. 90 tablet 1 025 Active betamethasone dipropionate (DIPROSONE) 0.05 % cream Apply topically. 025 Active losartan (COZAAR) 100 mg tablet Take 1 tablet (100 mg total) by mouth at bedtime. 90 tablet 1 025 Active ondansetron (ZOFRAN) 4 mg tabletIndications :Nausea Take 1-2 tablets (4-8 mg total) by mouth every 8 (eight) hours if needed for nausea. 60 tablet 025 Active pregabalin (LYRICA) 100 mg capsuleIndication s:Other polyneuropathy Take 1 capsule (100 mg total) by mouth 3 (three) times a day. Max Daily Amount: 300 mg 60 capsule 5 025 2025 Active losartan (COZAAR) 100 mg tablet TAKE 1 TABLET BY MOUTH EVERYDAY AT BEDTIME 90 tablet 1 025 2024 Discontinued(R eorder) pregabalin (LYRICA) 50 mg capsuleIndication s:Fibromyalgia Take 1 capsule (50 mg total) by mouth 2 (two) times a day. Max Daily Amount: 100 mg 180 capsule 025 2024 Discontinued(R eorder) ondansetron (ZOFRAN) 4 mg tablet Take 1-2 tablets (4-8 mg total) by mouth every 8 (eight) hours if needed for nausea. 60 tablet 025 2024 Discontinued(R eorder) pregabalin (LYRICA) 50 mg capsule Take 1 capsule (50 mg total) by mouth 2 (two) times a day. Max Daily Amount: 100 mg 180 capsule 025 2024 Discontinued ondansetron (ZOFRAN) 4 mg tablet Take 1-2 tablets (4-8 mg total) by mouth every 8 (eight) hours if needed for nausea. 60 tablet 025 2024 Discontinued Active Problems Problem Noted Date Diagnosed Date Cocaine abuse in remission ([facility] V24, [facility] V28) 10/31/2024 Panic disorder 10/31/2024 Sacroiliac joint dysfunction of both sides 10/31 Insomnia 10/31/2024 Infrarenal abdominal aortic aneurysm (AAA) without rupture ([facility] V24) 10/31/2024 Overview (10/31/2024): 10/01/24: Elevated velocities [...] tis 09/12/2018 Hydronephrosis 12/26/2017 Overview (06/17/2024): Dr. mEerson - 12/14/17 - ultrasound ordered, if worsening consider nuclear drainage study; follow-up 6 weeks 02/27/19 - right sided fullness stable on recent ultrasound, repeat ultrasound in one year 03/20/2020 - recent imaging with right mild calyectasis, no love hydronephrosis, improved residual; follow-up in 1 year with renal ultrasound prior Ascending aorta dilation ([facility] V24) 8 Overview (10/31/2024): 10/31/24: Ascending aorta is dilated (4.0 cm); Sinus of Valsalva is dilated (3.2 cm). Echo 10/2018 - 4cm dilation Echo 10/2017 - Ascending 4cm and transverse 3.2cm aorta dilation Severe obesity (BMI 35.0-39. 9) with comorbidity (CMS/HCC V24, CMS/HCC V28) 06/27/2017 Vitamin D deficiency 08/18/2016 Right shoulder pain 05/03/2016 Overview (06/17/2024): [facility] - 04/20/16 - right shoulder injection, [...] Overview (06/17/2024): Dr. Salazar - Psychiatrist - [facility] Back pain 02/20/2010 Overview (06/17/2024): [facility] - 08/27/10 [...] Encounters Date Type Department Care Team Description 03/19/2025 11:30 AM EDT Office Visit Adult Medicine [address] [phone] Enoch Zapata MD Primary hypertension (Primary Dx); Nausea; Other polyneuropathy; Prediabetes; Pure hypercholesterolemia 03/18/2025 7:45 AM EDT Ancillary Procedure [facility] 101 300 [facility] 101 [place] [phone] Swelling of left lower extremity; Left leg pain 03/08/2025 Telephone Lung Screening Program - [place] 299 [facility] 410 [place] [phone] Pia New [place] 02/22/2025 11:15 AM EDT Office Visit Orthopedic Surgery [facility] 160 175 [facility] 160 [place] [phone] Carrie Lundberg MD Arthritis of right shoulder (Primary Dx) 02/22/2025 11:00 AM EDT Ancillary Procedure Orthopedic Surgery [facility] 160 175 [facility] 160 [place] [phone] 02/12/2025 8:20 AM EDT Consult Gastroenterology - [place] [address] [place] [address] [facility] 200 [place] [phone] Jihan Cronin NP Chronic nausea (Primary Dx); Marijuana use; Gastroesophageal reflux disease without esophagitis 12/28/2024 9:40 AM EDT Ancillary Procedure Orthopedic Surgery - [place] 160 175 [facility] 160 [place] [phone] 12/28/2024 9:30 AM EDT Office Visit Orthopedic Surgery [facility] 160 175 [facility] 160 [place] [phone] Carrie Lundberg MD Arthritis of left shoulder (Primary Dx) from Last 3 Months Immunizations Name Administration [...] duodenal ulcers UPPER GASTROINTESTINAL ENDOSCOPY 05/16/2018 PROCEDURE: TN UPPER GI ENDOSCOPY PERFORMED; COMMENT: complete resolution [...] obesity wit h BMI of 40.0-44.9, adult (HCC) Family History Medical History Relation Name Comments Heart attack Father Breast cancer Mother Breast cancer Other mat cousin Other: ca brain Son 1 Colon cancer Neg Hx Ovarian cancer Neg Hx Relation Name Status Comments Father (Age 57) MT at age 57 Mother (Age 86) [place] Other mat cousin Son 1 Son 2 [...] Sign Reading Time Taken Comments Blood Pressure 110/66 03/19/2025 11:14 AM EDT Pulse 98 03/19/2025 11:14 AM EDT Temperature 36.7 C (98 F) 03/19/2025 11:14 AM EDT Respiratory Rate 16 12/18/2024 3:05 PM EDT Oxygen Saturation 95% 03/19/2025 11:14 AM EDT Inhaled Oxygen Concentration - - Weight 102 kg (224 lb 9.6 oz) 03/19/2025 11:14 A M EDT Height 160 cm (5' 2.99 ) 03/19/2025 11:14 AM EDT Body Mass Index 39.8 03/19/2025 11:14 AM EDT Plan of Treatment Upcoming Encounters Date Type Department Care Team (Late st Contact Info) Description 04/02/2025 8:30 AM EDT Office Visit Orthopedic Surgery - [place] 160 175 [facility] [address] [place] [address] Carrie Lundberg MD 175 [facility] 160 [place] [address] 04/02/2025 9:00 AM EDT Office Visit Orthopedic Surgery [facility] 160 175 [facility] 160 [place] [phone] Carrie Lundberg MD 175 [facility] 160 [place] [address] 04/03/2025 10:00 AM EDT Appointment [facility] CT Scan [address] [place] [phone] 04/16/2025 8:00 AM EDT Appointment [facility] Nuclear Medicine [address] [place] [address] 04/16/2025 1:30 PM EDT Appointment [facility] Ultrasound [address] [place] [phone] 04/18/2025 9:30 AM EDT Office Visit Vascular Surgery [facility] [address] [facility] [address] [place] [phone] IslasJessy Eddy MD [facility] [address] [address] 05/07/2025 10:00 AM EDT Appointment Radiology Department [address] [phone] 10/08/2025 9:45 AM EST Office Visit Adult Medicine [address] [phone] Enoch Zapata MD [address] [place] [address] Health Maintenance Due Date Last Done Comments COVID-19 Vaccine (#1) 1962 Hepatitis A Vaccines (1 of 2 - Risk 2-dose series) 1976 Zoster Vaccines (1 of 2) 1976 Pneumococcal Vaccine: 50+ Years (1 of 1 - PCV) 2007 RSV Immunization Adult Patients (1 - Risk 60-74 years 1-dose series) 2017 Social Influencers of Health Screening 07/11/2022 Influenza Vaccine (#1) 2025 Falls Risk Assessment 09/07/2025 09/07/2024 Medicare Annual Wellness Visit 09/07/2025 09/07/2024 Hypertension/CHF/CAD Annual BMP Blood Test 12/18/2025 12/18/2024, 09/07/2024, 05/11/2024, Additional history exists Breast Cancer Screening 04/20/2026 04/20/2024, 04/20 Osteoporosis Screening (Bone Density Screening) 12/04/2028 12/04/2018 Cholesterol Screening (Lipid Panel) 12/18/2029 12/18/2024, 09/07/2024, 02/02/2024, Additional history exists DTaP,Tdap,and Td Vaccines (3 - Td or Tdap) 03/27/2034 03/27/2024, 09/25/2012 Colorectal Cancer Screening: Colonoscopy 02/28/2035 02/28/2025, 01/17/2018 Hepatitis C Screening Completed 06/11/2013 Depression Screening Completed 09/07/2024 HIB Vaccines Aged Out No longer eligi [...] Procedure Name Priority Date/Time Associated Diagnosis Comments HEMOGLOBIN A1C Routine 03/19/2025 12:11 PM EDT Prediabetes VAS US DUPLEX LOWER EXT VENOUS INSUFFICIENCY LEFT Routine 03/18/2025 7:44 AM EDT Swelling of left lower extremity Left leg pain EXTERNAL ENDOSCOPY REPORT Routine 02/28/2025 4:02 PM EDT EXTERNAL ENDOSCOPY REPORT Routine 02/28/2025 4:01 PM EDT EXTERNAL COLONOSCOPY REPORT Routine 02/28/2025 4:01 PM EDT TN ARTHROCENTESIS/ASPIR ATION/INJECTION MAJOR JOINT/BURSA W/O U/S GUIDANCE Routine 02/22/2025 11:15 AM EDT Arthritis of right shoulder US ARTHROCENTESIS ASP INJ JOINT MAJOR RIGHT Routine 02/22/2025 10:59 AM EDT Arthritis of right shoulder US ARTHROCENTESIS ASP INJ JOINT MAJOR RIGHT Routine 12/28/2024 9:36 AM EDT Arthritis of left shoulder TN ARTHROCENTESIS/ASPIR ATION/INJECTION MAJOR JOINT/BURSA W/O U/S GUIDANCE Routine 12/28/2024 9:30 AM EDT Arthritis of left shoulder COMPREHENSIVE METABOLIC PANEL Routine 12/18/2024 3:48 PM EDT Primary hypertension Encounter for long-term (current) use of medications LIPID PANEL WITH REFLEX TO DIRECT LDL Routine 12/18/2024 3:48 PM EDT Pure hypercholesterolemia DIAGNOSTIC MAMMOGRAPHY INCLUDING CAD BILATERAL Routine 04/20/2024 10:18 AM EDT Unspecified lump in the right breast, unspecified quadrant KAYDEN DEXA AXIAL SKELETON Routine 12/04/2018 5:36 PM EDT Asymptomatic menopausal state HEPATITIS C SCREENING Routine 06/11/2013 from Last 3 Months or Most Recently Relevant to Health Maintenance Results * Hemoglobin A1c (03/19/2025 12:11 PM EDT) Hemoglobin A1C 5.7 <6.5 % LAB CHEMISTRY METHOD 03/19/2025 6:23 PM EDT [facility] Mean Bld Glu Estim. 117 mg/dL LAB CHEMISTRY METHOD 03/19/2025 6:23 PM EDT [facility] Blood Venous blood specimen / Unknown Venipuncture / Unknown 03/19/2025 12:11 PM EDT 03/19/2025 12:11 PM EDT us Enoch Zapata MD LAB BLOOD ORDERABLES Final Resu lt [facility] [address] [place] [address], * Vascular US duplex lower extremity venous insufficiency left (03/18/2025 7:44 AM EDT) Left GSK bharathi 0.26 cm CV VAS LAB Left GSDC bharathi 0.17 cm CV VAS LAB Left GSMT bharathi 0.37 cm CV VAS LAB Left GSPC bharathi 0.30 cm CV VAS LAB Left GSPT bharathi 0.44 cm CV VAS LAB Left SFJ Diameter 0.71 cm CV VAS LAB Left SSMC bharathi 0.27 cm CV VAS LAB Left SSPC bharathi 0.30 cm CV VAS LAB Left GSK reflux 4,506 ms CV VAS LAB Left GSPC reflux 3,760 ms CV [facility]AS LAB Anatomical Region Laterality Modality Vascular, Abdomen Ultrasound Narrative 03/18/2025 12:22 PM EDT LEFT. 1. No evidence of deep vein thrombosis. 2. The saphenofemoral junction, common femoral, femoral, and popliteal veins are competent. 3. No superficial venous thrombosis. 4. No venous reflux noted in the small saphenous vein. 5. Significant venous reflux noted in the greater saphenous vein, 4.5 seconds at the knee and 3.8 seconds at proximal below-knee. Left Lower Venous No evidence of deep vein thrombosis in the common femoral, deep femoral, proximal femoral, mid femoral, distal femoral, popliteal, greater saphenous, small saphenous, posterior tibial and peroneal veins of the left leg. The vessels showed compressibility. Interrogation showed phasic and spontaneous Doppler signals. Left Venous Insufficiency Duplex The exam was performed with the patient in reverse trendelenburg. Left saphenopopliteal junction was not identified. Cnc Wood Lathe Operator Details A nieto scale, color and doppler analysis ultrasound was performed. During the study longitudinal and transverse views were obtained. Continuous wave doppler and pulsed wave doppler was performed. Overall the study quality was good. Raza Kingston MD CV VASCULAR PROCEDURES Final Re sult * External Endoscopy (02/28/2025 4:02 PM EDT) Only the most recent of2 resultswithin the time period is included. Anatomical Region Laterality Modality Endoscopy Historical Provider GI~PROCEDURE ORDERABLES F inal Result * External Colonoscopy Report (02/28/2025 4:01 PM EDT) Anatomical Region Laterality Modality Endoscopy Historical Provider GI~PROCEDURE ORDERABLES F inal Result * TN ARTHROCENTESIS/ASPIRATION/INJECTION MAJOR JOINT/BURSA W/O U/S GUIDANCE (02/22/2025 11:15 AM EDT) Narrative Carrie Lundberg MD - 02/22/2025 11:15 AM EDT Carrie Lundberg MD 02/22/2025 12:39 PM L Inj/Asp: R glenohumeral Indications: pain Details: 22 G needle, posterior approach (guidance: US guided ) Medications: 3 mL lidocaine 1 %; 40 mg triamcinolone acetonide 40 mg/mL Outcome: tolerated well, no immediate complications Informed Consent: Laterality: Right Relevant images/test results [...] IN CLINIC/BEDSIDE ORDERABLES F inal Result * US Arthrocentesis Asp Inj Joint Major Right (02/22/2025 10:59 AM EDT) Only the most recent of2 resultswithin the time period is included. Anatomical Region Laterality Modality Extremity Right Ultrasound Narrative 02/22/2025 12:37 PM EDT PROCEDURE Right glenohumeral injection for osteoarthritis. Risk including infection, post-injection [...] MD IMG US PROCEDURES Final Result * TN ARTHROCENTESIS/ASPIRATION/INJECTION MAJOR JOINT/BURSA W/O U/S GUIDANCE (12/28/2024 [...] mg/dL LAB CHEMISTRY METHOD 12/18/2024 6:59 PM EDT [facility] Triglycerides 198(H) 0 - 150 mg/dL LAB CHEMISTRY METHOD 12/18/2024 6:59 PM EDT [facility] HDL 55 >=40 mg/dL LAB CHEMISTRY METHOD 12/18/2024 6:59 PM EDT [facility] LDL Calculated 76 0 - 100 mg/dL LAB CHEMISTRY METHOD 12/18/2024 6:59 PM EDT [facility] VLDL Cholesterol Ricardo 39.6 mg/dL LAB CHEMISTRY METHOD 12/18/2024 6:59 PM EDT [facility] Non HDL Chol. (LDL+VLDL) 116 <145 mg/dL LAB CHEMISTRY METHOD 12/18/2024 6:59 PM EDT [facility] Chol/HDL Ratio 3.1 0.0 - 4.4 LAB CHEMISTRY METHOD 12/18/2024 6:59 PM EDT [facility] Blood Venous blood specimen / Unknown Venipuncture / Unknown 12/18/2024 3:48 PM EDT 12/18/2024 3:48 PM EDT us Enoch Zapata MD LAB BLOOD ORDERABLES Final Resu lt [facility] [address] [place] [address], [place] [phone] * (ABNORMAL) Comprehensive metabolic panel (12/18/2024 3:48 PM EDT) Pathologist [facility] Sodium 139 133 - 145 mmol/L LAB CHEMISTRY METHOD 12/18/2024 6:57 PM EDT [facility] Potassium 4.1 3.5 - 5.5 mmol/L LAB CHEMISTRY METHOD 12/18/2024 6:57 PM [facility] Chloride 108 96 - 110 mmol/L LAB CHEMISTRY METHOD 12/18/2024 6:57 PM [facility] CO2 25 21 - 32 mmol/L LAB CHEMISTRY METHOD 12/18/2024 6:57 PM [facility] Anion Gap 6 3 - 11 LAB CHEMISTRY METHOD 12/18/2024 6:57 PM [facility] Glucose 75 70 - 100 mg/dL LAB CHEMISTRY METHOD 12/18/2024 6:57 PM [facility] BUN 26(H) 5 - 25 mg/dL LAB CHEMISTRY METHOD 12/18/2024 6:57 PM [facility] Creatinine 0.83 0.50 - 1.10 mg/dL LAB CHEMISTRY METHOD 12/18/2024 6:57 PM [facility] eGFR 77 >=60 mL/min/1. 73m2 LAB CHEMISTRY METHOD 12/18/2024 6:57 PM [facility] Comment:Calculation based on the Chronic Kidney Disease Epidemiology Collaboration (CKD-EPI) equation refit without adjustment for race. BUN/Creatinine Ratio 31.3 LAB CHEMISTRY METHOD 12/18/2024 6:57 PM [facility] Calcium 9.6 8.5 - 10.5 mg/dL LAB CHEMISTRY METHOD 12/18/2024 6:57 PM [facility] AST (SGOT) 16 10 - 42 unit/L LAB CHEMISTRY METHOD 12/18/2024 6:57 PM [facility] ALT (SGPT) 23 10 - 60 unit/L LAB CHEMISTRY METHOD 12/18/2024 6:57 PM [facility] Alkaline Phosphatase 94 42 - 121 unit/L LAB CHEMISTRY METHOD 12/18/2024 6:57 PM [facility] Total Protein 7.0 6.0 - 8.0 g/dL LAB CHEMISTRY METHOD 12/18/2024 6:57 PM EDT [facility] Albumin 3.8 3.2 - 5.0 g/dL LAB CHEMISTRY METHOD 12/18/2024 6:57 PM EDT [facility] Total Bilirubin 0.5 0.0 - 1.4 mg/dL LAB CHEMISTRY METHOD 12/18/2024 6:57 PM EDT [facility] Blood Venous blood specimen / Unknown Venipuncture / Unknown 12/18/2024 3:48 PM EDT 12/18/2024 3:48 PM EDT us Enoch Zapata MD LAB BLOOD ORDERABLES Final Resu lt [facility] [address] [place] [address], [place] [phone] * DIAGNOSTIC MAMMOGRAPHY INCLUDING CAD BILATERAL (04/20/2024 [...] Breast cancer risk category Low (<15%) Location: [facility], [address] [place] [address], [address], [phone] Procedure Note Ligia Smith MD - 05/23/2024 [...] right breast has been present and unchanged [id number]. Tiny adjacent nodule with associated biopsy clip [...] Breast cancer risk category Low (<15%) Location: [facility], [address] [place] [address], [address], [phone] us Enoch Zapata MD IMG BI PROCEDURES Final Result * [facility] DEXA AXIAL SKELETON (12/04/2018 5:36 PM EDT) Anatomical Region Laterality Modality Mammography 12/04/2018 9:49 AM EDT Narrative 12/04/2018 5:36 PM EDT [facility] Diagnostic Imaging Department [address] [place] [id number] Patient: ELMIRA MAURICIO Fox BoyerB./Age/Sex: 1955 - 63 - F Unit#: [id number] Location/Status: SPDIMAM/REG CLI Mnem[facility] Ordering Physician: TEREZA FERNANDEZ MD, PHD [facility] Dexa Axial Skeleton - 12/04/18 - 1045 History: Low estrogen state due to menopause. Tobacco use. Back pain. Findings: Bone densitometry is performed utilizing dual energy x-ray absorptiometry (DXA) in the GlycobiaigDidi-Dache unit. The lumbar spine and proximal femora [...] 0.1 percent. IMPRESSION: Normal bone mineral [place]. [id number] Dictating Physician: EARNESTINE SAMPSON MD Electronically Signed by: EARNESTINE SAMPSON MD Dic Date/Time: 12/04/181732 Sign date/Time: 12/04/181735 Procedure Note Earnestine Sampson MD - 07/27/2022 [facility] Diagnostic Imaging Department [address] [place] [id number] Patient: ELMIRA MAURICIO Fox /Age/Sex: 1955 63 - Unit#: [id number] Location/Status: [facility] Mnemonic/Ordering Site: [facility] Ordering Physician: TEREZA FERNANDEZ MD, PHD [facility] Dexa Axial Skeleton - 12/04/18 - 1045 History: Low estrogen state due to menopause. Tobacco use. Back pain. Findings: Bone densitometry is performed utilizing dual energy x-ray absorptiometry(DXA) in the GlycobiaigDidi-Dache unit. The lumbar spine and proximal femora [...] 0.1 percent. IMPRESSION: Normal bone mineral density. [id number] Dictating Physician: EARNESTINE SAMPSON MD Electronically Signed by: EARNESTINE SAMPSON MD Dic Date/Time: 12/04/181732 Sign date/Time: 12/04/18 1736 Tereza Fernandez MD IMG BI PROCEDURES Final R esult * Hepatitis C Screening (06/11/2013) Hepatitis C Screening abstracted us Historical Provider HEALTH MAINTENANCE Final Result from Last 3 Months or Most Recently Relevant to Health Maintenance Insurance [facility] MEDICARE Member Subscriber Plan / Payer (Ef fective 2024-Present) Name:Elmira Mauricio Relation to Subscriber:Self Name:Hang Elmira Braxton Payer ID:[id number] Group ID:[id number] Type:Not on file Address: [place] [address] [address] [phone] Advance Directives Documents on File Type Date Recorded Patient Cdl B Driver Expl anation Health Care Decision (hx) 07/12/2023 HE ALTH CARE PROXY Health Care Decision (hx) 07/12/2023 HE ALTH CARE PROXY Health Care Decision (hx) 07/12/2023 HE ALTH CARE PROXY Health Care Decision (hx) 07/12/2023 HE ALTH CARE PROXY Care Teams Tonsorial Artist Relationship Specialty Start Date End Date Enoch Zapata MD [address] [place] [id number] PCP - General Internal Medicine 10/12/21
== END 2025-03-28 10:48 | disposition home or self-care (01) ==
LOC: HO.PMC 09:58
PROVIDERS: PCP Internal Medicine; Visit Provider Anesthesiology
DX: M96.1 Postlaminectomy syndrome, not elsewhere classified (principal); G89.4 Chronic pain syndrome; M54.51 Vertebrogenic low back pain
CPT/HCPCS: 99213

== ENCOUNTER → 2025-03-28 09:57 | Outpatient (BNVA) | payer OTHER, SELFPAY | PROVIDERS: PCP Internal Medicine; Visit Provider Anesthesiology | DX: M54.51 Vertebrogenic low back pain (principal); G89.4 Chronic pain syndrome; M96.1 Postlaminectomy syndrome, not elsewhere classified | CPT/HCPCS: 99212 ==

== ENCOUNTER 2025-04-02 15:41 | Outpatient (REF) | payer OTHER, SELFPAY ==
--- OUTSIDE RECORDS SUMMARY | 2024-02-21 06:45 | XMS_ITS ---
Author Organization [facility] [address] Address [address] [place] [place] [address] Care Team Providers Care Park Interpretive Ranger Name Role Phone LUIS ENRIQUE FRANCO Unavailable [phone] Encounters Encounter Location Date Provider Diagnosis [facility] [address] [address] 02/21/2024 LUIS ENRIQUE FRANCO Plan Of Treatment No Information Progress Notes * JESUS LOPEZ SDOB: [birth year] (70 yo F)Acc No.[id number]:02/21/2024 Patient: Fox COOKKEYONNASUSHMAAN Fox Provider: Alvin FRANCO NP :1955 A ge:68 Y S ex:Female Date:02/21/2024 Address:[address] [place], [place] [phone] Subjective: * Chief Complaints: * * Medical History: Objective: * Vitals: Assessment: Plan: * Treatment: * Images: Billing Information: * Visit Code: * Procedure Codes: * Electronic signature of PRANAY FRANCO on 04/02/2025 at 04:30 PM EDT Sign off status: Pending * Provider: Alvin FRANCO NP Date: 02/21/2024 Generated for Printi ng/Faregulog/eTransmitting on: 04/02/2025 04:30 PM EDT
--- OUTSIDE RECORDS SUMMARY | 2024-05-14 04:45 | XMS_ITS ---
Author Organization [facility] [address] Address [address] [place] [address] Care Team Providers Care Bench Loom Weaver Name Role Phone LUIS ENRIQUE FRANCO Unavailable [phone] Encounters Encounter Location Date Provider Diagnosis [facility] [address] [address] 05/14/2024 LUIS ENRIQUE FRANCO Plan Of Treatment No Information Progress Notes * JESUS LOPEZ SDOB: [birth year] (70 yo F)Acc No.[id number]:05/14/2024 Patient: Fox COOKKEYONNASUSHMAAN Fox Provider: Alvin FRANCO NP :1955 A ge:69 Y S ex:Female Date:05/14/2024 Address:[address] [place], [place] [phone] Subjective: * Chief Complaints: * * Medical History: Objective: * Vitals: Assessment: Plan: * Treatment: * Images: Billing Information: * Visit Code: * Procedure Codes: * Electronic signature of PRANAY FRANCO on 04/02/2025 at 04:30 PM EDT Sign off status: Pending * Provider: Alvin FRANCO NP Date: 1 Generated for Printi ng/Faregulog/eTransmitting on: 04/02/2025 04:30 PM EDT
--- OUTSIDE RECORDS SUMMARY | 2025-04-02 16:30 | XMS_ITS | Clinical Summary ---
Author Organization [place] [address] [address] [facility] Address [address] [place], [place] [address], [place] [address] Phone Care Team Providers Care Sand Mill Operator Facing Sand Name Role Phone Enoch Zapata MD Primary Care Provider [phone] Allergies Active Allergy Reactions Criticality Noted Date [...] Date Diagnosed Date Cocaine abuse in remission ([facility] V24, [facility] V28) 10/31/2024 Panic disorder 10/31/2024 Sacroiliac joint dysfunction of both sides 10/31 Insomnia 10/31/2024 Infrarenal abdominal aortic aneurysm (AAA) without rupture ([facility] V24) 10/31/2024 Overview (10/31/2024): 10/01/24: Elevated velocities [...] with renal ultrasound prior Ascending aorta dilation ([facility] V24) 8 Overview (10/31/2024): 10/31/24: Ascending aorta is dilated (4.0 cm); Sinus of Valsalva is dilated (3.2 cm). Echo 10/2018 - 4cm dilation Echo 10/2017 - Ascending 4cm and transverse 3.2cm aorta dilation Severe obesity (BMI 35.0-39. 9) with comorbidity (CMS/HCC V24, CMS/HCC V28) 06/27/2017 Vitamin D deficiency 08/18/2016 Right shoulder pain 05/03/2016 Overview (06/17/2024): [facility] - 04/20/16 - right shoulder injection, [...] Overview (06/17/2024): Dr. Salazar - Psychiatrist - [facility] Back pain 02/20/2010 Overview (06/17/2024): [facility] Lumbar MRI [...] 11:30 AM EDT Office Visit Adult Medicine [address] [address] Enoch Zapata MD Primary hypertension (Primary Dx); Nausea; Other polyneuropathy; Prediabetes; Pure hypercholesterolemia 03/18/2025 7:45 AM EDT Ancillary Procedure [facility] 101 300 [facility] 101 [place] [phone] Swelling of left lower extremity; Left leg pain 03/08/2025 Telephone Lung Screening Program - [place] 299 [facility] [address] [place] [phone] Pia New [place] 02/22/2025 11:15 AM EDT Office Visit Orthopedic Surgery [facility] 160 175 [facility] 160 [place] [phone] Carrie Lundberg MD Arthritis of right shoulder (Primary Dx) 02/22/2025 11:00 AM EDT Ancillary Procedure Orthopedic Surgery [facility] 160 175 [facility] 160 [place] [phone] 02/12/2025 8:20 AM EDT Consult Gastroenterology - [place] [address] [place] [address] [facility] [address] [place] [address] Jihan Cronin NP Chronic nausea (Primary Dx); Marijuana use; Gastroesophageal reflux disease without esophagitis from Last 3 Months Immunizations Name Administration Dates Next Due Td Tetanus diptheria (Tdvax) 7yo and older 03/27 Tdap Tetanus diptheria acell ular pertussis (Boostrix; Adacel) 7yo and older 09/25/2012 Surgical History Surgery Date Site/Laterality Comments BACK SURGERY 2006 PROCEDURE: HISTORICAL BACK SURGERY; COMMENT: Dr. Rinaldi [...] duodenal ulcers UPPER GASTROINTESTINAL ENDOSCOPY 05/16/2018 PROCEDURE: MO UPPER GI ENDOSCOPY PERFORMED; COMMENT: complete resolution [...] Relation Name Status Comments Father (Age 57) [place] at age 57 Mother (Age 86) [place] Other mat cousin Son 1 Son 2 [...] Care Team (Late st Contact Info) Description 04/16/2025 8:00 AM EDT Appointment [facility] Nuclear Medicine [address] [place] [address] 04/16/2025 1:30 PM EDT Appointment [facility] Ultrasound [address] [place] [address] 04/18/2025 9:30 AM EDT Office Visit Vascular Surgery - [place] [address] [place] [phone] Jessy Hutchins MD [address] [place] [phone] 04/23/2025 11:15 AM EDT Appointment [facility] CT Scan [address] [place] [phone] 04/30/2025 9:00 AM EDT Office Visit Orthopedic Surgery - [place] 160 175 [facility] 160 [place] [address] Carrie Lundberg MD [address] [place] [address] 05/07/2025 10:00 AM EDT Appointment Radiology Department - [address] [address] 10/08/2025 9:45 AM EST Office Visit Adult Medicine [address] [address] Enoch Zapata MD [address] [place] [address] Health Maintenance Due Date Last Done Comments [...] COLONOSCOPY REPORT Routine 02/28/2025 4:01 PM EDT MO ARTHROCENTESIS/ASPIR ATION/INJECTION MAJOR JOINT/BURSA W/O U/S GUIDANCE Routine 02/22/2025 11:15 AM EDT Arthritis of right shoulder US ARTHROCENTESIS ASP INJ JOINT MAJOR RIGHT Routine 02/22/2025 10:59 AM EDT Arthritis of right shoulder COMPREHENSIVE METABOLIC PANEL Routine 12/18/2024 3:48 PM EDT Primary hypertension Encounter for long-term (current) use of medications LIPID PANEL WITH REFLEX TO DIRECT LDL Routine 12/18/2024 3:48 PM EDT Pure hypercholesterolemia DIAGNOSTIC MAMMOGRAPHY INCLUDING CAD BILATERAL Routine 04/20/2024 10:18 AM EDT Unspecified lump in the right breast, unspecified quadrant [facility] DEXA AXIAL SKELETON Routine 12/04/2018 5:36 PM EDT Asymptomatic menopausal state HEPATITIS C SCREENING Routine 06/11/2013 from Last 3 Months or Most Recently Relevant to Health Maintenance Results * Hemoglobin A1c (03/19/2025 12:11 PM EDT) Hemoglobin A1C 5.7 <6.5 % LAB CHEMISTRY METHOD 03/19/2025 6:23 PM EDT [facility] Mean Bld Glu Estim. 117 mg/dL LAB CHEMISTRY METHOD 03/19/2025 6:23 PM EDT [facility] Blood Venous blood specimen / Unknown Venipuncture / Unknown 03/19/2025 12:11 PM EDT 03/19/2025 12:11 PM EDT us Enoch Zapata MD LAB BLOOD ORDERABLES Final Resu lt [facility] [address] [place] [address], * Vascular US duplex lower extremity venous [...] trend[place]burg. Left saphenopopliteal junction was not identified. Floral Merchandiser Details A nieto scale, color and doppler [...] Provider GI~PROCEDURE ORDERABLES F inal Result * MO ARTHROCENTESIS/ASPIRATION/INJECTION MAJOR JOINT/BURSA W/O U/S GUIDANCE (02/22/2025 [...] Joint Major Right (02/22/2025 10:59 AM EDT) Anatomical Region Laterality Modality Extremity [...] patients medical record. us Carrie Lundberg MD [facility] [place] [place] US PROCEDURES Final Result * (ABNORMAL) Lipid panel with reflex to direct LDL (12/18/2024 3:48 PM EDT) [facility] Signature Cholesterol 171 0 - 200 mg/dL LAB CHEMISTRY METHOD 12/18/2024 6:59 PM EDT [facility] Triglycerides 198(H) 0 - 150 mg/dL LAB CHEMISTRY METHOD 12/18/2024 6:59 PM EDT [facility] HDL 55 >=40 mg/dL LAB CHEMISTRY METHOD 12/18/2024 6:59 PM EDT [facility] LDL Calculated 76 0 - 100 mg/dL LAB CHEMISTRY METHOD 12/18/2024 6:59 PM EDT [facility] VLDL Cholesterol Ricardo 39.6 mg/dL LAB CHEMISTRY METHOD 12/18/2024 6:59 PM EDT [facility] Non HDL Chol. (LDL+VLDL) 116 <145 mg/dL LAB CHEMISTRY METHOD 12/18/2024 6:59 PM EDT [facility] Chol/HDL Ratio 3.1 0.0 - 4.4 LAB CHEMISTRY METHOD 12/18/2024 6:59 PM EDT [facility] Blood Venous blood specimen / Unknown Venipuncture / Unknown 12/18/2024 3:48 PM EDT 12/18/2024 3:48 PM EDT us Enoch Zapata MD LAB BLOOD ORDERABLES Final Resu lt [facility] [address] [place] [address], [place] [phone] * (ABNORMAL) Comprehensive metabolic panel (12/18/2024 3:48 PM EDT) Sodium 139 133 - 145 mmol/L LAB CHEMISTRY METHOD 12/18/2024 6:57 PM EDT [facility] Potassium 4.1 3.5 - 5.5 mmol/L LAB CHEMISTRY METHOD 12/18/2024 6:57 PM EDT [facility] Chloride 108 96 - 110 mmol/L LAB CHEMISTRY METHOD 12/18/2024 6:57 PM EDT [facility] CO2 25 21 - 32 mmol/L LAB CHEMISTRY METHOD 12/18/2024 6:57 PM EDT [facility] Anion Gap 6 3 - 11 LAB CHEMISTRY METHOD 12/18/2024 6:[address] [facility] Glucose 75 70 - 100 mg/dL LAB CHEMISTRY METHOD 12/18/2024 6:[address] [facility] BUN 26(H) 5 - 25 mg/dL LAB CHEMISTRY METHOD 12/18/2024 6:[address] [facility] Creatinine 0.83 0.50 - 1.10 mg/dL LAB CHEMISTRY METHOD 12/18/2024 6:[address] [facility] eGFR 77 >=60 mL/min/1. 73m2 LAB CHEMISTRY METHOD 12/18/2024 6:[address] [facility] Comment:Calculation based on the Chronic Kidney Disease Epidemiology Collaboration (CKD-EPI) equation refit without adjustment for race. BUN/Creatinine Ratio 31.3 LAB CHEMISTRY METHOD 12/18/2024 6:[address] [facility] Calcium 9.6 8.5 - 10.5 mg/dL LAB CHEMISTRY METHOD 12/18/2024 6:[address] [facility] AST (SGOT) 16 10 - 42 unit/L LAB CHEMISTRY METHOD 12/18/2024 6:[address] [facility] ALT (SGPT) 23 10 - 60 unit/L LAB CHEMISTRY METHOD 12/18/2024 6:[address] [facility] Alkaline Phosphatase 94 42 - 121 unit/L LAB CHEMISTRY METHOD 12/18/2024 6:[address] [facility] Total Protein 7.0 6.0 - 8.0 g/dL LAB CHEMISTRY METHOD 12/18/2024 6:[address] [facility] Albumin 3.8 3.2 - 5.0 g/dL LAB CHEMISTRY METHOD 12/18/2024 6:[address] [facility] Total Bilirubin 0.5 0.0 - 1.4 mg/dL LAB CHEMISTRY METHOD 12/18/2024 6:57 PM EDT [facility] Blood Venous blood specimen / Unknown Venipuncture / Unknown 12/18/2024 3:48 PM EDT 12/18/2024 3:48 PM EDT us Enoch Zapata MD LAB BLOOD ORDERABLES Final Resu lt [facility] [address] [place] [address], * DIAGNOSTIC MAMMOGRAPHY INCLUDING CAD BILATERAL (04/20/2024 [...] Breast cancer risk category Low (<15%) Location: [facility], [address] [place] [address], [address], [phone] Procedure Note Ligia Smith MD - 05/23/2024 [...] right breast has been present and unchanged [id number]. Tiny adjacent nodule with associated biopsy clip [...] Breast cancer risk category Low (<15%) Location: [facility], [address] [place] [address], [address], [phone] us Enoch Zapata MD IMG BI PROCEDURES Final Result * [facility] DEXA AXIAL SKELETON (12/04/2018 5:36 PM EDT) Anatomical Region Laterality Modality Mammography 12/04/2018 9:49 AM EDT Narrative 12/04/2018 5:36 PM EDT [facility] Diagnostic Imaging Department [address] [place] [address] Patient: ELMIRA MAURICIO /Age/Sex: 1955 - 63 - F Unit#: [id number] Location/Status: SPDIMAM/REG CLI Mnemonic/Ordering Site: MAMDEXAAX/SPMAM Ordering Physician: TEREZA FERNANDEZ MD, PHD [facility] Dexa Axial Skeleton - 12/04/181044 History: Low estrogen state due to menopause. Tobacco use. Back pain. Findings: Bone densitometry is performed utilizing dual energy x-ray absorptiometry (DXA) in the [employer] unit. The lumbar spine and proximal femora [...] 0.1 percent. IMPRESSION: Normal bone mineral density. [id number] Dictating Physician: EARNESTINE SAMPSON MD Electronically Signed by: AERNESTINE SAMPSON MD Dic Date/Time: 12/04/181732 Sign date/Time: 12/04/181735 Procedure Note Earnestine Sampson MD - 07/27/2022 [facility] Diagnostic Imaging Department [address] [place] [address] Patient: ELMIRA MAURICIO /Age/Sex: 1955 - 63 - F Unit#: [id number] Location/Status: SPDIMAM/REG CLI Mnemonic/Ordering Site: MAMDEXAAX/SPMAM Ordering Physician: TEREZA FERNANDEZ MD, PHD [facility] Dexa Axial Skeleton - 12/04/18 - 1045 History: Low estrogen state due to menopause. Tobacco use. Back pain. Findings: Bone densitometry is performed utilizing dual energy x-ray absorptiometry(DXA) in the [employer] unit. The lumbar spine and proximal femora [...] 0.1 percent. IMPRESSION: Normal bone mineral density. [id number] Dictating Physician: EARNESTINE SAMPSON MD Electronically Signed by: EARNESTINE SAMPSON MD Dic Date/Time: 12/04/18 173 Sign date/Time: 12/04/181735 us Tereza Fernandez MD IMG BI PROCEDURES Final R esult * Hepatitis C Screening (06/11/2013) Pathologist [facility] Hepatitis C Screening abstracted Historical Provider HEALTH MAINTENANCE Final Result from Last 3 Months or Most Recently Relevant to Health Maintenance Insurance [employer] MED[employer] Member Subscriber Plan / Payer (Ef fective 2024-Present) Name:Elmira Mauricio Relation to Subscriber:Self Name:Elmira Mauricio Payer ID:[id number] Group ID:[id number] Type:Not on file Address: [place] [address] [address] [place] [address] Advance Directives Documents on File Type Date Recorded 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
--- OUTSIDE RECORDS SUMMARY | 2025-04-02 16:30 | XMS_ITS | Patient Health Record ---
[facility] Organization [facility] Address [address] [place] [address] Care Team Providers Care Collision Worker Name Role Phone LUIS ENRIQUE FRANCO Unavailable [phone] Allergies Allergen (clinical drug ingredient) Drug/Non Drug [...] Problem Obesity due to exces s calories (153078824) Other obesity due to excess calories (E66.09) Active confirmed Problem Hyperlipidemia (74068980) Hyperlipidemia , unspecified (E78.5) Active confirmed Problem Chronic pain syndrom e (816747284) Chronic pain syndrome (G89.4) Active confirmed Problem Essential hypertensi on (32944878) Essential (primary) hypertension (I10) Active confirmed Problem Fibromyalgia (228414516) Fibromyalgia (M79.7) Active confirmed Problem Body mass index 40+ - severely obese (580590240) Body mass index (BMI) 45.0-49.9, adult (Z68.42) Active confirmed Problem Pure hypercholesterolemia (382798557) Pure hypercholester olemia, unspecified (E78.00) Active confirmed Problem Body mass index 35.0 0 to 39.99 (081803955028052) Body mass index [BMI] 36.0-36.9, adult (Z68.36) Active confirmed Problem Body mass index 40+ - severely obese (671804527) BMI 45.0-49.9, adult (Z68.42) Active confirmed Problem Morbid obesity (193949033) Morbid obesity due to excess calories (E66.01) Active confirmed Encounters Encounter Location Date Provider Diagnosis [facility] [address] [address] 05/07/2024 LUIS ENRIQUE FRANCO [facility] [address] [address] 05/09/2024 LUIS ENRIQUE FRANCO Plan Of Treatment No Information Insurance Providers Payer Name Payer Address Payer Phone Subscriber Number Group Number Insured Name Patient Relationship to Insured Coverage Start Date Coverage End Date [employer] Medicare Value PPO [address] [place] [id number] JESUS LOPEZ Self - patient is the insured Medical (General) History Medical History History ICD Code hypertension hypercholesterolemia restless leg syndrome depression insomnia Surgical History Surgery Date(Month/Year) right knee replacement left knee replacement
== END 2025-04-02 15:42 | disposition home or self-care (01) ==
LOC: CF 15:41
DX: Z13.89 Encounter for screening for other disorder (principal)

== ENCOUNTER 2025-04-24 09:58 | Outpatient (AMB) | payer OTHER, SELFPAY ==
--- OUTSIDE RECORDS SUMMARY | 2023-12-26 05:30 | XMS_ITS ---
Author Organization [facility] [address] Address [address] [place] [address] Care Team Providers Care Manager Compliance Name Role Phone LISALUIS ENRIQUE JOVEL Unavailable [phone] Medications Medication SIG (Take, Route, Fr equency, Duration) Notes Start Date End Date Status Mounjaro 2.5 MG/0.5ML 2.5mg Subcutaneous weekly; Duration: 30 days Active Encounters Encounter Location Date Provider Diagnosis [facility] [address] [address] 12/26/2023 LUIS ENRIQUE FRANCO Essential (primary) hypertension [...] minimum of 6 months The most recent [place] [employer] of clinical endocrinologists and [place] [employer] of endocrinology guidelines recommend patients who [...] track activity level. Consider using apps like PrairieSmarts, myfitnesspal, lose it, stick as needed for self-monitoring and weight management. Consider group exercises. Consider hiring a personal lines agent. Regular exercise is mcginnis to sustainable health [...] counseling and psychiatry and Dr Tejeda at [facility] We would like to cover regular topics [...] software and direct typing Please excuse inadvertent french edge operator or typing errors, or uncorrected word substitutions Although every attempt has been made by the provider to proofread this document, occasional misspellings and typographical errors may still be present Due to the previous pandemic, and the use of personal protective equipment (PPE) This may decrease voice recognition accuracy Inadvertent french edge operator errors may occur 12/26/2023 Pure hypercholesterol emia, [...] minimum of 6 months The most recent [place] [employer] of clinical endocrinologists and [place] [employer] of endocrinology guidelines recommend patients who [...] track activity level. Consider using apps like Takipiise, myfitnesspal, lose it, stick as needed for self-monitoring and weight management. Consider group exercises. Consider hiring a personal lines agent. Regular exercise is mcginnis to sustainable health [...] counseling and psychiatry and Dr Tejeda at [facility] We would like to cover regular topics [...] software and direct typing Please excuse inadvertent french edge operator or typing errors, or uncorrected word substitutions Although every attempt has been made by the provider to proofread this document, occasional misspellings and typographical errors may still be present Due to the previous pandemic, and the use of personal protective equipment (PPE) This may decrease voice recognition accuracy Inadvertent french edge operator errors may occur 12/26/2023 Morbid obesity due [...] minimum of 6 months The most recent [place] [employer] of clinical endocrinologists and [place] [employer] of endocrinology guidelines recommend patients who [...] track activity level. Consider using apps like PrairieSmarts, Chiaro Technology Ltdpal, lose it, stick as needed for self-monitoring and weight management. Consider group exercises. Consider hiring a personal lines agent. Regular exercise is mcginnis to sustainable health [...] counseling and psychiatry and Dr Tejeda at [facility] We would like to cover regular topics [...] software and direct typing Please excuse inadvertent french edge operator or typing errors, or uncorrected word substitutions Although every attempt has been made by the provider to proofread this document, occasional misspellings and typographical errors may still be present Due to the previous pandemic, and the use of personal protective equipment (PPE) This may decrease voice recognition accuracy Inadvertent french edge operator errors may occur 12/26/2023 Chronic pain syndrome [...] minimum of 6 months The most recent [place] [employer] of clinical endocrinologists and [place] [employer] of endocrinology guidelines recommend patients who [...] track activity level. Consider using apps like PrairieSmarts, Chiar[employer] Technology [employer]pal, lose it, stick as needed for self-monitoring and weight management. Consider group exercises. Consider hiring a personal lines agent. Regular exercise is mcginnis to sustainable health [...] counseling and psychiatry and Dr Tejeda at [facility] We would like to cover regular topics [...] software and direct typing Please excuse inadvertent french edge operator or typing errors, or uncorrected word substitutions Although every attempt has been made by the provider to proofread this document, occasional misspellings and typographical errors may still be present Due to the previous pandemic, and the use of personal protective equipment (PPE) This may decrease voice recognition accuracy Inadvertent french edge operator errors may occur 12/26/2023 Fibromyalgia (ICD-10 - [...] minimum of 6 months The most recent [place] [employer] of clinical endocrinologists and [place] [employer] of endocrinology guidelines recommend patients who [...] track activity level. Consider using apps like PrairieSmarts, Ch[employer]pal, lose it, stick as needed for self-monitoring and weight management. Consider group exercises. Consider hiring a personal lines agent. Regular exercise is mcginnis to sustainable health [...] software and direct typing Please excuse inadvertent french edge operator or typing errors, or uncorrected word substitutions Although every attempt has been made by the provider to proofread this document, occasional misspellings and typographical errors may still be present Due to the previous pandemic, and the use of personal protective equipment (PPE) This may decrease voice recognition accuracy Inadvertent french edge operator errors may occur 12/26/2023 BMI 45.0-49.9, adult [...] minimum of 6 months The most recent [place] [employer] of clinical endocrinologists and [place] [employer] of endocrinology guidelines recommend patients who [...] track activity level. Consider using apps like PrairieSmarts, Ch[employer] Ltdpal, lose it, stick as needed for self-monitoring and weight management. Consider group exercises. Consider hiring a personal lines agent. Regular exercise is mcginnis to sustainable health [...] counseling and psychiatry and Dr Tejeda at [facility] We would like to cover regular topics [...] software and direct typing Please excuse inadvertent french edge operator or typing errors, or uncorrected word substitutions Although every attempt has been made by the provider to proofread this document, occasional misspellings and typographical errors may still be present Due to the previous pandemic, and the use of personal protective equipment (PPE) This may decrease voice recognition accuracy Inadvertent french edge operator errors may occur 12/26/2023 Prediabetes (ICD-10 - [...] minimum of 6 months The most recent [place] [employer] of clinical endocrinologists and [place] [employer] of endocrinology guidelines recommend patients who [...] track activity level. Consider using apps like PrairieSmarts, myfitToad Medicalpal, lose it, stick as needed for self-monitoring and weight management. Consider group exercises. Consider hiring a personal lines agent. Regular exercise is mcginnis to sustainable health [...] counseling and psychiatry and Dr Tejeda at [facility] We would like to cover regular topics [...] software and direct typing Please excuse inadvertent french edge operator or typing errors, or uncorrected word substitutions Although every attempt has been made by the provider to proofread this document, occasional misspellings and typographical errors may still be present Due to the previous pandemic, and the use of personal protective equipment (PPE) This may decrease voice recognition accuracy Inadvertent french edge operator errors may occur Plan Of Treatment Medication Medication Name Sig Start Date Stop Date Notes Mounjaro 2.5 MG/0.5ML 2.5mg Subcutaneous weekly; Duration: 30 days Progress Notes * JESUS LOPEZOB: [birth year] (70 yo F)Acc No.[id number]:12/26/2023 Patient: JESUS CRONIN Provider: Alvin FRANCO NP :1955 A ge:68 Y S ex:Female Date:12/26/2023 Address:[address] [place], [place] [id number] Subjective: * Chief Complaints: * * HPI: [...] from [facility] PCP 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 Previous TTE @ [facility] Diet: grAb and go, no [...] F ibromyalgia - M79.7 6 . B ND 45.0-49.9, adult - Z68.42 7 . P [...] minimum of 6 months The most recent [place] [employer] of clinical endocrinologists and [place] [employer] of endocrinology guidelines recommend patients who [...] track activity level. Consider using apps like PrairieSmarts, Chiaro Technology Ltdpal, lose it, stick as needed for self-monitoring and weight management. Consider group exercises. Consider hiring a personal lines agent. Regular exercise is mcginnis to sustainable health [...] counseling and psychiatry and Dr Tejeda at [facility] We would like to cover regular topics [...] software and direct typing Please excuse inadvertent french edge operator or typing errors, or uncorrected word substitutions Although every attempt has been made by the provider to proofread this document, occasional misspellings and typographical errors may still be present Due to the previous pandemic, and the use of personal protective equipment (PPE) This may decrease voice recognition accuracy Inadvertent french edge operator errors may occur. Plan: * Treatment: * Images: Billing Information: * Visit Code: * Procedure Codes: * Electronic signature of PRANAY RIZZO LISAMED on 04/24/2025 at 11:58 AM EDT Sign off status: Pending * Provider: Alvin FRANCO NP Date: 0 12/26/2023 Generated for No diane/Yanni/Caitlin on: 0 04/24/2025 11:58 AM EDT History and Physical Notes * [...] needs clearance from PCP to go to [facility]. 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 Previous TTE @ [facility] Diet: grAb and go, no portion control/calorie counting Exercise: Currently not tracking steps daily. Utilizes walker, min activity Non-smoker. quit 2017 ETOH use: Denies Examination Category Sub-Category Detail Notes Category Not es General Examination GENERAL APPEARANCE: in no ac chinik distress, well developed, well nourished HEAD: normocephalic, [...]
--- OUTSIDE RECORDS SUMMARY | 2024-02-21 06:45 | XMS_ITS ---
Author Organization [facility] [address] Address [address] [place] [address] Care Team Providers Care Drum Cleaner Name Role Phone LUIS ENRIQUE FRANCO Unavailable [phone] Encounters Encounter Location Date Provider Diagnosis [facility] [address] [address] 02/21/2024 LUIS ENRIQUE FRANCO Plan Of Treatment No Information Progress Notes * JESUS LOPEZ SDOB: [birth year] (70 yo F)Acc No.[id number]:02/21/2024 Patient: Fox COOKKEYONNA JESUS Fox Provider: Alvin FRANCO NP :1955 A ge:68 Y S ex:Female Date:02/21/2024 Address:[address] [place], [place] [phone] Subjective: * Chief Complaints: * * Medical History: Objective: * Vitals: Assessment: Plan: * Treatment: * Images: Billing Information: * Visit Code: * Procedure Codes: * Electronic signature of PRANAY FRANCO on 04/24/2025 at 11:57 AM EDT Sign off status: Pending * Provider: Alvin FRANCO NP Date: 0 02/21/2024 Generated for Chaitanyai ng/Fasarah/eTransmitting on: 04/24/2025 11:57 AM EDT
--- OUTSIDE RECORDS SUMMARY | 2024-05-14 04:45 | XMS_ITS ---
Author Organization [facility] [address] Address [address] [place] [address] Care Team Providers Care Director Money Name Role Phone LUIS ENRIQUE FRANCO Unavailable [phone] Encounters Encounter Location Date Provider Diagnosis [facility] [address] [address] 05/14/2024 LUIS ENRIQUE FRANCO Plan Of Treatment No Information Progress Notes * JESUS LOPEZ SDOB: [birth year] (70 yo F)Acc No.[id number]:05/14/2024 Patient: Fox COOKKEYONNASUSHMAAN Fox Provider: Alvin FRANCO NP :1955 A ge:69 Y S ex:Female Date:05/14/2024 Address:[address] [place], [place] [phone] Subjective: * Chief Complaints: * * Medical History: Objective: * Vitals: Assessment: Plan: * Treatment: * Images: Billing Information: * Visit Code: * Procedure Codes: * Electronic signature of PRANAY FRANCO on 04/24/2025 at 11:58 AM EDT Sign off status: Pending * Provider: Alvin FRANCO NP Date: 1 Generated for Chaitanyai ng/Faregulog/eTransmitting on: 0 04/24/2025 11:58 AM EDT
--- OUTSIDE RECORDS SUMMARY | 2025-04-16 07:00 | XMS_ITS | Encounter Summary ---
Author Organization [facility] Address [address] [place] [address] Care Team Providers Care Developer Programmer Name Role Phone Enoch Zapata MD Primary Care Provider [phone] Reason for Referral * Imaging (Routine) - Pending Review Specialty Diagnoses / Procedures Referred By Contac t Referred To Contact Radiology Diagnoses Chronic nausea Procedures NM Gastric Emptying Study Jihan Cronin NP [address] [address] Phone: tel: fax: [facility] Nuclear Medicine [address] [place] [phone] Phone: tel: Referral ID Status Reason Start Date Expiration Date V isits Requested Visits Authorized [id number] Pending Review 02/12/2025 02/12/2026 1 1 Reason for Visit * Imaging (Routine) - Pending Review Specialty Diagnoses / Procedures Referred By Contac t Referred To Contact Radiology Diagnoses Chronic nausea Procedures NM Gastric Emptying Study Jihan Cronin NP [address] [address] Phone: tel: fax: [facility] Nuclear Medicine [address] [place] [address] Phone: tel: Referral ID Status Reason Start Date Expiration Date V isits Requested Visits Authorized [id number] Pending Review 02/12/2025 02/12/2026 1 1 Encounter Details Date Type Department Care Team (Late st Contact Info) Description 04/16/2025 7:00 AM EDT Hospital Encounter [facility] Nuclear Medicine [address] [place] [address] Chronic nausea Social History Tobacco Use Types Packs/Day Years Used Date Smoking Tobacco: Former Smokeless Tobacco: Never Alcohol Use Standard Drinks/Week Comments No 0 (1 standard drink = 0.6 oz pur e alcohol) Comments No Sex and Gender Information Value Date Recorded Sex Assigned at Not on file Legal Sex Female 5:32 AM EST Gender Identity Not on file Sexual Orientation Not on file documented as of this encounter Plan of Treatment Upcoming Encounters Date Type Department Care Team (Late Contact Info) Description 04/30/2025 9:00 AM EDT Office Visit Orthopedic Surgery [facility] [address] [address] Carrie Lundberg MD [address] [address] 05/07/2025 10:00 AM EDT Appointment Radiology Department - [address] [phone] 05/09/2025 9:15 AM EDT Appointment [facility] CT Scan [address] [place] [address] 05/09/2025 9:30 AM EDT Appointment [facility] Ultrasound [address] [place] [address] 10/08/2025 9:45 AM EST Office Visit Adult Medicine [facility] - [address] [phone] Enoch Zapata MD [address] [place] [address] documented as of this encounter Procedures Procedure Name Priority Date/Time Associated Diagnosis Comments NM GASTRIC EMPTYING STUDY Routine 04/16/2025 11:32 AM EDT Chronic nausea documented in this encounter Results * NM Gastric Emptying Study (04/16/2025 11:32 AM EDT) Anatomical Region Laterality Modality Body Nuclear Medicine 04/17/2025 12:5 7 PM EDT Impressions 04/17/2025 12:58 PM EDT Normal gastric emptying. -------- FINAL REPORT -------- Dictated By: Brandin Jay Dictated Date: 04/17/2025 12:57 ET Assigned Physician: Brandin Jay Reviewed and Electronically Signed By: Brandin Jay Signed Date: 04/17/2025 12:58 ET Workstation ID: [id number] Transcribed By: Self Edit Transcribed Date: 04/17/2025 12:57 ET Narrative 04/17/2025 12:58 PM EDT HISTORY: Chronic nausea FINDINGS: Routine radionuclide gastric emptying study was performed following administration of 1 mCi of Tc99m sulfur colloid prepared in egg for solid food evaluation. Anterior and posterior imaging obtained. 1 hour retention 42%. Normal <90% 2 hour retention 19%. Normal <60% 3 hour retention 6%. Normal <30% Procedure Note Brandin Jay MD - 04/17/2025 HISTORY: Chronic nausea FINDINGS: Routine radionuclide gastric emptying study was performedfollowing administration of 1 mCi of Tc99m sulfur colloid prepared in eggfor solid food evaluation. Anterior and posterior imaging obtained. 1 hour retention 42%. Normal <90% 2 hour retention 19%. Normal <60% 3 hour retention 6%. Normal <30% IMPRESSION: Normal gastric emptying. -------- FINAL REPORT -------- Dictated By: Brandin Jay Dictated Date: 04/17/2025 12:57 ET Assigned Physician: Brandin Jay Reviewed and Electronically Signed By: Brandin Jay Signed Date: 04/17/2025 12:58 ET Workstation ID: [id number] Transcribed By: Self Edit Transcribed Date: 04/17/2025 12:57 ET Jihan Cronin CRUSHER FOREMAN IMG NM PROCEDURES Final Result documented in this encounter Visit Diagnoses Diagnosis Chronic nausea Nausea alone Encounter for screening mammogram for breast cancer documented in this encounter Administered Medications Inactive Administered Medications - up to 3 most recent administrations Medication Order MAR Action Action Date Dose Rate Site TC-99M sulfur colloid radio-isotope injection 1 millicurie 1 millicurie, oral, Once in imaging, Starting on Tue04/16/25 at 0806, For 1 dose Given 04/16/2025 8:06 AM EDT 1 millicurie documented in this encounter Orders Medications Ordered That Janusz ht Not Have Been Administered Count Last Ordered Date First Ordered Date TC-99M sulfur colloid radio- isotope injection 1 millicurie 1 04/16/2025 documented in this encounter Additional Health Concerns Assessment Noted Time PHQ-9 Depression Total Score: 4 09/07/19 11:45 AM EST A fall risk assessment has been complete d for the patient 09/07/2024 11:44 AM EST documented as of this encounter Care Teams Developer Programmer Relationship Specialty Start Date End Date Enoch Zapata MD [address] [place] [phone] PCP - General Internal Medicine 10/12/21 documented as of this encounter
[2025-04-24 10:03] VITALS: BP 159/91; PULSE 90; RESP 18; O2SAT 95
--- NOTE | 2025-04-24 10:03 | MHC.OFFVIS ---
Vital Signs 04/24/25 10:03 Weight 232 lb BP 159/91 H Blood Pressure Location Lt brachial Position Sitting Respiration 18 Pulse 90 Pulse Source Pulse Oximeter Pulse Oximetry (%) 95 Oxygen Delivery Method Room Air Intake Visit Reasons: CHRONIC PAIN Consolidation Accountant Required: No Allergies acetaminophen (From Tylenol) Allergy (Intermediate, Verified 04/24/25 10:03) Rash erythromycin base Allergy (Intermediate, Verified 04/24/25 10:03) Rash HPI Comments Details: [place]mira is back in my office to discuss further treatment of her conditions. I examined her MRI which was uploaded in our system and there are Modic type 2 changes starting from L3 going all the way down to S1. I explained to the patient that I can try to perform intercept RFA however the pain in the left groin and numbness in the left lower extremity unlikely will be helped by the intercept procedure. She complains on pain in the lower back with prolonged sitting flexing forward and lifting objects from the ground. This pain could be helped by intercept procedure. However the patient complains on pain mostly in the groin and lateral surface of the left hip. I sent today the patient to the x-ray of the left hip, the results reported no significant pathology in the left hip joint, there is widespread spurs and enthesopathy of the left greater trochanter and iliotibial band. Possibility of treating her iliotibial band syndrome with physical therapy will be discussed next time in 1 week she will come to see me. The axial back pain can not be treated with intercept the patient wants to think about this option. Prior: Severe pain in the neck pain in the lower back pain in the left groin. She reports pain with prolonged sitting exacerbation and bending over exacerbation. She had multiple images of her lumbar spine 1 of the MRIs from 2022 she brought with herself. The report is from [facility] . On that MRI there is demonstration of the Modic type 1 changes at L3-L4 and Modic type 3 endplate changes at L2-L3. However patient states that the risk more fresh MRI available at [place]. I recommended the patient to bring us the report and the disc of that MRI. She was subject of multiple physical therapy with [facility] physical therapy office none of them were helpful for her. She tried 10s unit it was not helpful for her. She was under care of [facility] pain management received multiple nerve blocks and epidural steroid injections and even attempted spinal cord stimulator trial. According to the patient none was helpful for the patient's pain. Review of Systems Const All systems reviewed & are unremarkable except as noted in HPI and below ENT Reports Normal hearing present Neuro Reports Normal hearing present, Denies Abnormal speech present, Denies confusion and Denies Sensory deficit (Neuro) Psych Denies confusion Physical Exam Vital Signs: Last Vital Signs Pulse 90 04/24/25 10:03 Resp 18 04/24/25 10:03 BP 159/91 H 04/24/25 10:03 Pulse Ox 95 04/24/25 10:03 Oxygen Delivery Method Room Air 04/24/25 10:03 Const General: no acute distress; No confusion Nutritional Appearance: obese morbidly obese Orientation/consciousness: patient oriented x3 and No confusion Eyes General: appearance normal, both eyes and all related structures Pupils: Equal, round and reactive pupils present EOM: EOMs intact bilaterally Neck Neck: Yes full ROM Chest Chest palpation & inspection: normal inspection of the chest Resp Effort & Inspection: normal respiratory effort, able to speak in complete sentences, normal respiratory pattern, no audible wheezes and no cough Cardio Jugular venous distension: no JVD GI Inspection: Yes normal to inspection Back/Spine/Pelvis Other: There is very well-healed thin scar in the projection of the L4-5 lumbar vertebras, there is no redness no pathological discharge. There is no tenderness on palpation in the projection of the scar. Neuro General: patient oriented x3, gait normal and No confusion Cranial nerves: Yes CN's II-XII intact bilaterally, Yes Equal, round and reactive pupils present, Yes Normal hearing present and Yes Ability to bilaterally elevate shoulders present Speech: No Abnormal speech present Gait exam (Neuro): Normal gait present Motor exam (neuro): 5/5 motor strength present throughout Sensory Exam: No Sensory deficit (Neuro) Extrem General: No pedal edema Psych Speech and movement: Normal speech and movement present Affect: normal affect Attitude: cooperative Thought process: Normal thought process present Thought content: Normal thought content present Insight: Good insight present (Psych) Judgement: Good judgement present (Psych) Results Reviewed Results Reviewed: XR HIP, LEFT CLINICAL INFORMATION: M25.552 - Pain in left hip COMPARISON: None available. TECHNIQUE: Two views of the left hip. FINDINGS: Left hip joint space is preserved. Chronic bony exostoses are evident involving the greater trochanter, likely enthesophytes. Mild degenerative changes are present in the left SI joint and pubic symphysis joint with sclerosis and mild narrowing. IMPRESSION: Mild degenerative changes of left SI joint and pubic symphysis joint. Left hip joint is preserved. Assessment & Plan Assessment & Plan (1) Left hip pain: Code(s): M25.552 - Pain in left hip Category: Medical (2) Postlaminectomy syndrome: Code(s): M96.1 - Postlaminectomy syndrome, not elsewhere classified Category: Medical (3) Chronic pain syndrome: Code(s): G89.4 - Chronic pain syndrome Category: Medical (4) Vertebrogenic low back pain: Code(s): M54.51 - Vertebrogenic low back pain Category: Medical Plan We discussed today again performance of the intercept procedure for L3-L4 , L5 and S1 levels for this patient. I explained to her that some of the pain could be improved by this procedure. The patient's complains mostly on the left hip pain and numbness on the left hip as well as pain in the left groin. I explained to the patient that this symptoms will not be improved by intercept RFA. Only symptoms with axial low back pain we will be helps see as above. I will see patient in 1 week and we will continue to discuss the results of the x-rays further. It did not demonstrate any hip joint pathology however showed enthesopathy of the iliotibial band and significant bony spurs of the greater trochanter on the left. Orders: Orders XR hip LT min 2V Today M25.552 - Pain in left hip Patient Instructions: I here by testify that I spent 30 minutes in conversation with this patient as well as planning her care, making appropriate orders and evaluating prior images and organizing this note Coding Level of Care Code Est Pt Level 4 (35515) Diagnoses Left hip pain M25.552 Postlaminectomy syndrome M96.1 Chronic pain syndrome G89.4 Vertebrogenic low back pain M54.51
--- OUTSIDE RECORDS SUMMARY | 2025-04-24 11:58 | XMS_ITS | Clinical Summary ---
Author Organization [place] [address] [facility] Address [address] [place], [place] [address], [place] [address] Phone Care Team Providers Care Trade Promotion Analyst Name Role Phone Enoch Zapata MD Primary Care Provider [phone] Allergies Active Allergy Reactions Criticality Noted Date [...] 3 Pack,) 80 mg/mL injection 024 Active ibuprofen (ADVIL,MOTRIN) 800 mg tablet TAKE [...] mg 60 capsule 5 025 2025 Active simvastatin (ZOCOR) 20 mg tablet TAKE 1 TABLET BY MOUTH EVERYDAY AT BEDTIME 90 tablet 1 025 Active simvastatin (ZOCOR) 20 mg tablet TAKE 1 TABLET BY MOUTH EVERYDAY AT BEDTIME 90 tablet 1 025 2024 Discontinued Active Problems Problem Noted Date Diagnosed Date Cocaine abuse in remission ([facility] V24, [facility] V28) 10/31/2024 Panic disorder 10/31/2024 Sacroiliac joint dysfunction of both sides 10/31 Insomnia 10/31/2024 Infrarenal abdominal aortic aneurysm (AAA) without rupture ([facility] V24) 10/31/2024 Overview (10/31/2024): 10/01/24: Elevated velocities [...] with renal ultrasound prior Ascending aorta dilation ([facility] V24) 8 Overview (10/31/2024): 10/31/24: Ascending aorta is dilated (4.0 cm); Sinus of Valsalva is dilated (3.2 cm). Echo 10/2018 - 4cm dilation Echo 10/2017 - Ascending 4cm and transverse 3.2cm aorta dilation Severe obesity (BMI 35.0-39. 9) with comorbidity ([facility] V24, [facility] V28) 06/27/2017 Vitamin D deficiency 08/18/2016 Right shoulder pain 05/03/2016 Overview (06/17/2024): [facility] - 04/20/16 - right shoulder injection, [...] [facility] Back pain 02/20/2010 Overview (06/17/2024): [facility] Lumbar MRI - [...] Encounters Date Type Department Care Team Description 04/18/2025 9:30 AM EDT Office Visit Vascular Surgery - [place] [address] [facility] [address] [place] [address] Jessy Hutchins MD Swelling of left lower extremity (Primary Dx); Left leg pain; Aortic ectasia ([facility]/HCC V24) 04/16/2025 7:00 AM EDT [facility] Nuclear Medicine [address] [place] [phone] Chronic nausea 04/11/2025 Telephone Adult Medicine [address] [phone] Enoch Zapata MD 04/10/2025 2:00 PM EDT Office Visit Adult [address] [phone] Joe Burton PA Urinary frequency (Primary Dx); Prediabetes 04/04/2025 Telephone Adult [address] [phone] Enoch Zapata MD 03/19/2025 11:30 AM EDT Office Visit Adult [address] [phone] Enoch Zapata MD Primary hypertension (Primary Dx); Nausea; Other polyneuropathy; Prediabetes; Pure hypercholesterolemia 03/18/2025 7:45 AM EDT Ancillary Procedure [facility] 101 [address] [facility] 101 [place] [phone] Swelling of left lower extremity; Left leg pain 03/08/2025 Telephone Lung Screening Program - [place] [address] [facility] [address] [place] [phone] Pia New [place] 02/22/2025 11:15 AM EDT Office Visit Orthopedic Surgery [facility] 160 175 [facility] 160 [place] [phone] Carrie Lundberg MD Arthritis of right shoulder (Primary Dx) 02/22/2025 11:00 AM EDT Ancillary Procedure Orthopedic Surgery [facility] 160 175 [facility] 160 [place] [phone] 02/12/2025 8:20 AM EDT Consult Gastroenterology - [place] 175 [facility] 175 [facility] 200 [place] [address] Jihan Cronin NP Chronic nausea [...] duodenal ulcers UPPER GASTROINTESTINAL ENDOSCOPY 05/16/2018 PROCEDURE: [facility] UPPER GI ENDOSCOPY PERFORMED; COMMENT: complete resolution [...] obesity wit h BMI of 40.0-44.9, adult ([facility]) Family History Medical History Relation Name Comments Heart attack Father Breast cancer Mother Breast cancer Other mat cousin Other: ca brain Son 1 Colon cancer Neg Hx Ovarian cancer Neg Hx Relation Name Status Comments Father (Age 57) OR at age 57 Mother (Age 86) OR Other mat cousin Son 1 Son 2 [...] Sign Reading Time Taken Comments Blood Pressure 100/70 04/18/2025 9:09 AM EDT Pulse 72 04/18/2025 9:09 AM EDT Temperature 36.3 C (97.4 F) 04/10/2025 1:45 PM EDT Respiratory Rate 16 04/18/2025 9:09 AM EDT Oxygen Saturation 91% 04/10/2025 1:45 PM EDT Inhaled Oxygen Concentration - - Weight 105 kg (232 lb) 04/18/2025 9:09 AM EDT Height 160 cm (5' 3 ) 04/18/2025 9:09 AM EDT Body Mass Index 41.1 04/18/2025 9:09 AM EDT Plan of Treatment Upcoming Encounters Date Type Department Care Team (Late st Contact Info) Description 04/30/2025 9:00 AM EDT Office Visit Orthopedic Surgery - [place] [address] [phone] Carrie Lundberg MD [address] [address] 05/07/2025 10:00 AM EDT Appointment Radiology Department - [address] [address] 05/09/2025 9:15 AM EDT Appointment [facility] CT Scan [address] [place] [phone] 05/09/2025 9:30 AM EDT Appointment [facility] Ultrasound [address] [place] [phone] 10/08/2025 9:45 AM EST Office Visit Adult Medicine [address] [phone] Enoch Zapata MD [address] [place] [phone] Health Maintenance Due Date Last Done Comments [...] Routine 04/16/2025 11:32 AM EDT Chronic nausea GONZALEZ URINE CULTURE TUBE Routine 04/10/2025 3:01 PM EDT Urinary frequency URINALYSIS WITH REFLEX MICROSCOPIC AND CULTURE Routine 04/10/2025 2:24 PM EDT Urinary frequency URINALYSIS WITH REFLEX MICROSCOPIC AND CULTURE Routine 04/10/2025 2:24 PM EDT Urinary frequency CULTURE URINE Routine 04/10/2025 2:24 PM EDT Urinary frequency HEMOGLOBIN A1C Routine 03/19/2025 12:11 PM EDT Prediabetes VAS US DUPLEX LOWER EXT VENOUS INSUFFICIENCY LEFT Routine 03/18/2025 7:44 AM EDT Swelling of left lower extremity Left leg pain EXTERNAL ENDOSCOPY REPORT Routine 02/28/2025 4:02 PM EDT EXTERNAL ENDOSCOPY REPORT Routine 02/28/2025 4:01 PM EDT EXTERNAL COLONOSCOPY REPORT Routine 02/28/2025 4:01 PM EDT VA ARTHROCENTESIS/ASPIR ATION/INJECTION MAJOR JOINT/BURSA W/O U/S GUIDANCE [...] lump in the right breast, unspecified quadrant [facility] DEXA AXIAL SKELETON Routine 12/04/2018 5:36 PM EDT Asymptomatic menopausal state HEPATITIS C SCREENING Routine 06/11/2013 from Last 3 Months or Most Recently Relevant to Health Maintenance Results * NM Gastric Emptying Study (04/16/2025 11:32 AM EDT) Anatomical Region Laterality Modality Body Nuclear Medicine 04/17/2025 12:5 7 PM EDT Impressions 04/17/2025 12:58 PM EDT Normal gastric emptying. -------- FINAL REPORT -------- Dictated By: Brandin Jay Dictated Date: 04/17/2025 12:57 ET Assigned Physician: Brandin Jay Reviewed and Electronically Signed By: Brandin Jay Signed Date: 04/17/2025 12:58 ET Workstation ID: [id number] Transcribed By: Self Edit Transcribed Date: 04/17/2025 [...] Signed Date: 04/17/2025 12:58 ET Workstation ID: [id number] Transcribed By: Self Edit Transcribed Date: 04/17/2025 12:57 ET Jihan Cronin AUTOMATIC RIVETING MACHINE OPERATOR IMG NM PROCEDURES Final Result * Gonzalez urine culture tube (04/10/2025 3:01 PM EDT) Pathologist [facility] Extra Tube Hold for add-ons. 04/10/2025 5:01 PM EDT [facility] Comment:Auto resulted. Urine Urine specimen obtained by clean catch procedure / Unknown Non-blood Collection / Unknown 04/10/2025 3:01 PM EDT 04/10/2025 3:01 PM EDT Joe JUAREZ LAB URINE ORDERABLES Fi nal Result [facility] [address] [place] [address], [place] [phone] * (ABNORMAL) Urinalysis with reflex microscopic and culture (04/10/2025 2:24 PM EDT) Specific [place] Urine 1.007 1.003 - 1.030 LAB URINALYSIS - AUTOMATED METHOD 04/10/2025 5:10 PM [facility] pH, Urine 6.0 5.0 - 8.0 pH LAB URINALYSIS - AUTOMATED METHOD 04/10/2025 5:10 PM [facility] Leukocytes, Urine Small(A) Negative LAB URINALYSIS - AUTOMATED METHOD 04/10/2025 5:10 PM [facility] Nitrite, Urine Negative Negative LAB URINALYSIS - AUTOMATED METHOD 04/10/2025 5:10 PM [facility] Protein, Urine Negative <=Trace mg/dL LAB URINALYSIS - AUTOMATED METHOD 04/10/2025 5:10 PM [facility] Glucose, Urine Negative Negative mg/dL LAB URINALYSIS - AUTOMATED METHOD 04/10/2025 5:10 PM [facility] Ketones, Urine Negative Negative mg/dL LAB URINALYSIS - AUTOMATED METHOD 04/10/2025 5:10 PM [facility] Urobilinogen, Urine 0.2 0.2 - 1.0 mg/dL LAB URINALYSIS - AUTOMATED METHOD 04/10/2025 5:10 PM [facility] Bilirubin, Urine Negative Negative LAB URINALYSIS - AUTOMATED METHOD 04/10/2025 5:10 PM [facility] Blood, Urine Negative Negative LAB URINALYSIS - AUTOMATED METHOD 04/10/2025 5:10 PM [facility] RBC, Urine 1.3 0 - 4 /HPF LAB URINALYSIS - AUTOMATED METHOD 04/10/2025 5:10 PM [facility] WBC, Urine 0.6 0 - 4 /HPF LAB URINALYSIS - AUTOMATED METHOD 04/10/2025 5:10 PM [facility] Squamous Epithelial, Urine 34 0 - 60 /LPF LAB URINALYSIS - AUTOMATED METHOD 04/10/2025 5:10 PM [facility] Bacteria, Urine Negative Negative /HPF LAB URINALYSIS - AUTOMATED METHOD 04/10/2025 5:10 PM EDT [facility] Hyaline Casts, Urine 1.2 0 - 3 /LPF LAB URINALYSIS - AUTOMATED METHOD 04/10/2025 5:10 PM EDT [facility] Urine Urine specimen obtained by clean catch procedure / Unknown Non-blood Collection / Unknown 04/10/2025 2:24 PM EDT 04/10/2025 2:28 PM EDT Joe Burton [place] LAB URINE ORDERABLES Fi nal Result Performing Organization Address City/[facility]/ZIP Co de Phone Number [facility] [address] [place] [address], [place] [phone] * Culture urine (04/10/2025 2:24 PM EDT) Culture, Urine <10,000 cfu/mL Mixed bacterial tonja 04/11/2025 10:46 AM EDT [facility] Urine Urine specimen obtained by clean catch procedure / Unknown Non-blood Collection / Unknown 04/10/2025 2:24 PM EDT 04/10/2025 5:10 PM EDT Joe JUAREZ LAB MICROBIOLOGY - GENE RAL ORDERABLES Final Result [facility] [address] [place] [address], [place] [phone] * Hemoglobin A1c (03/19/2025 12:11 PM EDT) Hemoglobin A1C 5.7 <6.5 % LAB CHEMISTRY METHOD 03/19/2025 6:23 PM EDT [facility] Mean Bld Glu Estim. 117 mg/dL LAB CHEMISTRY METHOD 03/19/2025 6:23 PM EDT [facility] Blood Venous blood specimen / Unknown Venipuncture / Unknown 03/19/2025 12:11 PM EDT 03/19/2025 12:11 PM EDT us Enoch Zapata MD LAB BLOOD ORDERABLES Final Resu lt [facility] [address] [place] [address], [place] [phone] * Vascular US duplex lower extremity venous [...] trendelenburg. Left saphenopopliteal junction was not identified. Squeezer Operator Details A gonzalez scale, color and doppler analysis ultrasound was [...] Provider GI~PROCEDURE ORDERABLES F inal Result * [facility] ARTHROCENTESIS/ASPIRATION/INJECTION MAJOR JOINT/BURSA W/O U/S GUIDANCE (02/22/2025 [...] with patient: Verbal Pre-procedure timeout performed: yes Carrie Lundberg MD IN CLINIC/BEDSIDE ORDERABLES F [...] MD IMG US PROCEDURES Final Result * (ABNORMAL) Lipid panel with reflex to direct LDL (12/18/2024 3:48 PM EDT) Cholesterol 171 0 - 200 mg/dL LAB CHEMISTRY METHOD [facility] Triglycerides 198(H) 0 - 150 mg/dL LAB CHEMISTRY METHOD 12/18/2024 6:59 PM [facility] HDL 55 >=40 mg/dL LAB CHEMISTRY METHOD 12/18/2024 6:59 PM [facility] LDL Calculated 76 0 - 100 mg/dL LAB CHEMISTRY METHOD 12/18/2024 6:59 PM [facility] VLDL Cholesterol Ricardo 39.6 mg/dL LAB CHEMISTRY METHOD 12/18/2024 6:59 PM [facility] Non HDL Chol. (LDL+VLDL) 116 <145 mg/dL LAB CHEMISTRY METHOD 12/18/2024 6:59 PM [facility] Chol/HDL Ratio 3.1 0.0 - 4.4 LAB CHEMISTRY METHOD 12/18/2024 6:59 PM [facility] Blood Venous blood specimen / Unknown Venipuncture / Unknown 12/18/2024 3:48 PM EDT 12/18/2024 3:48 PM EDT us Enoch Zapata MD LAB BLOOD ORDERABLES Final Resu lt [facility] [address] [place] [address], [place] [phone] * (ABNORMAL) Comprehensive metabolic panel (12/18/2024 3:48 PM EDT) Sodium 139 133 - 145 mmol/L LAB CHEMISTRY METHOD 12/18/2024 6:57 PM EDT [facility] Potassium 4.1 3.5 - 5.5 mmol/L LAB CHEMISTRY METHOD 12/18/2024 6:57 PM [facility] Chloride 108 96 - 110 mmol/L LAB CHEMISTRY METHOD 12/18/2024 6:57 PM [facility] CO2 25 21 - 32 mmol/L LAB CHEMISTRY METHOD 12/18/2024 6:57 PM [facility] Anion Gap 6 3 - 11 LAB CHEMISTRY METHOD 12/18/2024 6:57 PM [facility] Glucose 75 70 - 100 mg/dL LAB CHEMISTRY METHOD 12/18/2024 6:57 PM [facility] BUN 26(H) 5 - 25 mg/dL LAB CHEMISTRY METHOD 12/18/2024 6:57 PM [facility] Creatinine 0.83 0.50 - 1.10 mg/dL LAB CHEMISTRY METHOD 12/18/2024 6:57 PM [facility] eGFR 77 >=60 mL/min/1. 73m2 LAB CHEMISTRY METHOD 12/18/2024 6:57 PM [facility] Comment:Calculation based on the Chronic Kidney Disease Epidemiology Collaboration (CKD-EPI) equation refit without adjustment for race. BUN/Creatinine Ratio 31.3 LAB CHEMISTRY METHOD 12/18/2024 6:57 PM [facility] Calcium 9.6 8.5 - 10.5 mg/dL LAB CHEMISTRY METHOD 12/18/2024 6:57 PM EDT [facility] AST (SGOT) 16 10 - 42 unit/L LAB CHEMISTRY METHOD 12/18/2024 6:57 PM EDT [facility] ALT (SGPT) 23 10 - 60 unit/L LAB CHEMISTRY METHOD 12/18/2024 6:57 PM EDT [facility] Alkaline Phosphatase 94 42 - 121 unit/L LAB CHEMISTRY METHOD 12/18/2024 6:57 PM EDT [facility] Total Protein 7.0 6.0 - 8.0 g/dL LAB CHEMISTRY METHOD 12/18/2024 6:57 PM EDT [facility] Albumin 3.8 3.2 - 5.0 g/dL LAB CHEMISTRY METHOD 12/18/2024 6:57 PM EDT [facility] Total Bilirubin 0.5 0.0 - 1.4 mg/dL LAB CHEMISTRY METHOD 12/18/2024 6:57 PM EDT [facility] Blood Venous blood specimen / Unknown Venipuncture / Unknown 12/18/2024 3:48 PM EDT 12/18/2024 3:48 PM EDT us Enoch Zapata MD LAB BLOOD ORDERABLES Final Resu lt [facility] [address] [place] [address], * DIAGNOSTIC MAMMOGRAPHY INCLUDING CAD BILATERAL (04/20/2024 [...] Breast cancer risk category Low (<15%) Location: [facility], [address] [place] [address], [address], [phone] Procedure Note Ligia Smith MD - 05/23/2024 [...] right breast has been present and unchanged [id number]. Tiny adjacent nodule with associated biopsy clip [...] Breast cancer risk category Low (<15%) Location: [facility], [address] [place] [address], [address], [phone] us Enoch Zapata MD IMG BI PROCEDURES Final Result * [facility] DEXA AXIAL SKELETON (12/04/2018 5:36 PM EDT) Anatomical Region Laterality Modality Mammography 12/04/2018 9:49 AM EDT Narrative 12/04/2018 5:36 PM EDT [facility] Diagnostic Imaging Department [address] [place] [address] Patient: ELMIRA MAURICIO Fox BoyerB./Age/Sex: 1955 - 63 - F Unit#: [id number] [facility] Ordering Physician: TEREZA FERNANDEZ MD, PHD [facility] Dexa Axial Skeleton - 12/04/18 - 9798 History: Low estrogen state due to menopause. Tobacco use. Back pain. Findings: Bone densitometry is performed utilizing dual energy x-ray absorptiometry (DXA) in the [employer] unit. The lumbar spine and proximal femora [...] 0.1 percent. IMPRESSION: Normal bone mineral density. [id number] Dictating Physician: EARENSTINE SAMPSON MD Electronically Signed by: EARNESTINE SAMPSON MD Dic Date/Time: 12/04/181732 Sign date/Time: 12/04/181735 Procedure Note Earnestine Sampson MD - 07/27/2022 [facility] Diagnostic Imaging Department [address] [place] [address] Patient: ELMIRA MAURICIO Fox Richard/Age/Sex: 1955 - 63 - F Unit#: [id number] [facility]ing [facility] Ordering Physician: TEREZA FERNANDEZ MD, PHD [facility] Dexa Axial Skeleton - 12/04/18 - 4515 History: Low estrogen state due to menopause. Tobacco use. Back pain. Findings: Bone densitometry is performed utilizing dual energy x-ray absorptiometry(DXA) in the [employer] unit. The lumbar spine and proximal femora [...] 0.1 percent. IMPRESSION: Normal bone mineral density. [id number] Dictating Physician: EARNESTINE SAMPSON MD Electronically Signed by: EARNESTINE SAMPSON MD Dic Date/Time: 12/04/18 173 Sign date/Time: 12/04/181735 Tereza Fernandez MD IMG BI PROCEDURES Final R esult * Hepatitis C Screening (06/11/2013) Pathologist [facility] Hepatitis C Screening abstracted Historical Provider HEALTH MAINTENANCE Final Result from Last 3 Months or Most Recently Relevant to Health Maintenance Insurance [employer] MEDICARE Member Subscriber Plan / Payer (Ef fective 2024-Present) Name:Elmira Mauricio Relation to Subscriber:Self Name:Elmira Mauricio Payer ID:[id number] Group ID:[id number] Type:Not on file Address: [facility] [address] [address] MEDICA[place] - [place] Advance Directives Documents on File Type Date Recorded 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
--- OUTSIDE RECORDS SUMMARY | 2025-04-24 11:58 | XMS_ITS | Encounter Summary ---
Author Organization [facility] Address [address] [place] [address] Care Team Providers Care Biofuels Engineering Manager Name Role Phone Enoch Zapata MD Primary Care Provider [phone] Reason for Visit * Reason Onset Date Comments Results 04/11/2025 Encounter Details Date Type Department Care Team (Late st Contact Info) Description 04/11/2025 Telephone Adult Medicine [address] [phone] Enoch Zapata MD [address] [place] [address] Social History Tobacco Use Types Packs/Day Years [...] on file documented as of this encounter Progress Notes * Dilcia Sepulveda - 04/15/2025 11:51 AM EDT Please call patient regarding test results, can see My Chart on her phone. * Dilcia Sepulveda - 04/12/2025 12:02 PM EDT Patient calling for results, call after 2pm Can't see My Chart on her phone * ANN Royal - 04/12/2025 9:12 AM EDT Please see result note which was sent to patient: Jim Elmira, I have reviewed your recent results which show you do not have a urinary tract infection. Please monitor for any new or worsening symptoms. I have placed a referral to urogynecology for further evaluation and recommendation. They will be reaching out to you to schedule an appointment. * Sol Demarco MA - 04/11/2025 3:07 PM EDT Marianne,. Please advise on pt urine culture. * Liliane Bennett - 04/11/2025 10:02 AM EDT Inform patient: ANY URGENT OR ABNORMAL RESULTS WIILL RESULT IN A CALL BACK TO THE PATIENT TON. Type of test: : LABS Date test was performed: 04/10/25 Where was the test performed: [facility] Who ordered this test?: ANN Royal Is the doctor here today?: yes Can the message wait until the doctor returns?: no IF PATIENT'S PCP IS NOT IN INSTRUCT PATIENT THAT THEY WILL RECEIVE A CALL BACK WHEN THE PCP IS IN THE OFFICE NEXT. documented in this encounter Plan of Treatment Upcoming Encounters Date Type Department Care Team (Late st Contact Info) Description 04/30/2025 9:00 AM EDT Office Visit Orthopedic Surgery - [place] [address] [phone] Carrie Lundberg MD [address] [address] 05/07/2025 10:00 AM EDT Appointment Radiology Department - [address] [phone] 05/09/2025 9:15 AM EDT Appointment [facility] CT Scan [address] [place] [phone] 05/09/2025 9:30 AM EDT Appointment [facility] Ultrasound [address] [place] [phone] 10/08/2025 9:45 AM EST Office Visit Adult Medicine [address] [phone] Enoch Zapata MD [address] [place] [address] documented as of this encounter Visit Diagnoses Not on filedocumented in this encounter Additional Health Concerns Assessment Noted Time PHQ-9 Depression Total Score: 4 09/07/19 25 11:45 AM EST A fall risk assessment has been complete d for the patient 09/07/2024 11:44 AM EST documented as of this encounter Care Teams Biofuels Engineering Manager Relationship Specialty Start Date End Date Enoch Zapata MD [address] [place] [address] PCP - General Internal Medicine 10/12/21 documented as of this encounter
--- OUTSIDE RECORDS SUMMARY | 2025-04-24 11:58 | XMS_ITS | Patient Health Record ---
[facility] Organization [facility] Address [address] [place] [address] Care Team Providers Care Sole Molder Name Role Phone LUIS ENRIQUE FRANCO Unavailable [phone] Allergies Allergen (clinical drug ingredient) Drug/Non Drug [...] Problem Obesity due to exces s calories (843360473) Other obesity due to excess calories (E66.09) Active confirmed Problem Hyperlipidemia (09481227) Hyperlipidemia , unspecified (E78.5) Active confirmed Problem Chronic pain syndrom e (021161218) Chronic pain syndrome (G89.4) Active confirmed Problem Essential hypertensi on (54670045) Essential (primary) hypertension (I10) Active confirmed Problem Fibromyalgia (863424022) Fibromyalgia (M79.7) Active confirmed Problem Body mass index 40+ - severely obese (009751929) Body mass index (BMI) 45.0-49.9, adult (Z68.42) Active confirmed Problem Pure hypercholesterolemia (209676073) Pure hypercholester olemia, unspecified (E78.00) Active confirmed Problem Body mass index 35.0 0 to 39.99 (334101072263104) Body mass index [BMI] 36.0-36.9, adult (Z68.36) Active confirmed Problem Body mass index 40+ - severely obese (796864824) BMI 45.0-49.9, adult (Z68.42) Active confirmed Problem Morbid obesity (756176176) Morbid obesity due to excess calories (E66.01) Active confirmed Encounters Encounter Location Date Provider Diagnosis [facility] [address] [address] 05/07/2024 LUIS ENRIQUE FRANCO [facility] [address] [address] 05/09/2024 LUIS ENRIQUE FRANCO Plan Of Treatment No Information Insurance Providers Payer Name Payer Address Payer Phone Subscriber Number Group Number Insured Name Patient Relationship to Insured Coverage Start Date Coverage End Date [employer] Medicare Value PPO [address] [place] [address] [id number] JESUS LOPEZ Self - patient is the insured Medical (General) History Medical History History ICD Code hypertension hypercholesterolemia restless leg syndrome depression insomnia Surgical History Surgery Date(Month/Year) right knee replacement left knee replacement
== END 2025-04-24 10:25 | disposition home or self-care (01) ==
LOC: HO.PMC 09:59
PROVIDERS: PCP Internal Medicine; Visit Provider Anesthesiology
DX: M25.552 Pain in left hip (principal); M96.1 Postlaminectomy syndrome, not elsewhere classified; G89.4 Chronic pain syndrome; M54.51 Vertebrogenic low back pain
CPT/HCPCS: 99214

== ENCOUNTER 2025-04-24 09:58 | Outpatient (REF) | payer OTHER, SELFPAY ==
--- NOTE | ~2025-04-24 | XR_ITS ---
EXAMINATION: XR HIP, LEFT CLINICAL INFORMATION: M25.552 - Pain in left hip COMPARISON: None available. TECHNIQUE: Two views of the left hip. FINDINGS: Left hip joint space is preserved. Chronic bony exostoses are evident involving the greater trochanter, likely enthesophytes. Mild degenerative changes are present in the left SI joint and pubic symphysis joint with sclerosis and mild narrowing. XR/XR hip LT min 2V IMPRESSION: Mild degenerative changes of left SI joint and pubic symphysis joint. Left hip joint is preserved. Electronically signed by: Ezekiel Manzano MD 04/24/2025 11:08 AM EDT
== END 2025-04-24 09:59 | disposition home or self-care (01) ==
LOC: HO.XRAY 09:58
PROVIDERS: PCP Internal Medicine; Visit Provider Anesthesiology
DX: M25.552 Pain in left hip (principal); M96.1 Postlaminectomy syndrome, not elsewhere classified; G89.4 Chronic pain syndrome; M54.51 Vertebrogenic low back pain
CPT/HCPCS: 73502; 99212

== ENCOUNTER → 2025-04-24 10:53 | Outpatient (BNV) | payer OTHER, SELFPAY | PROVIDERS: PCP Internal Medicine; Visit Provider Radiology Diagnostic Radiology | DX: M25.552 Pain in left hip (principal) | CPT/HCPCS: 73502 ==

== ENCOUNTER 2025-05-01 08:29 | Outpatient (AMB) | payer OTHER, SELFPAY ==
--- OUTSIDE RECORDS SUMMARY | 2023-12-26 05:30 | XMS_ITS ---
Author Organization [facility] [address] Address [address] [place] [address] Care Team Providers Care Human Resources Services Specialist Name Role Phone LISALUIS ENRIQUE JOVEL Unavailable [phone] Medications Medication SIG (Take, Route, Fr equency, Duration) Notes Start Date End Date Status Mounjaro 2.5 MG/0.5ML 2.5mg Subcutaneous weekly; Duration: 30 days Active Encounters Encounter Location Date Provider Diagnosis [facility] [address] [id number] 12/26/2023 LUIS ENRIQUE FRANCO Essential (primary) hypertension I10 ; Pure hypercholesterolemia, unspecified E78.00 ; Morbid obesity due to excess calories E66.01 ; Chronic pain syndrome G89.4 ; Fibromyalgia M79.7 ; BMI 45.0-49.9, adult Z68.42 and Prediabetes R73.03 Assessments Encounter Date Diagnosis (ICD Code) Assessment Notes Treatment Notes Treatment Clinical Notes Section Notes 12/26/2023 Essential (primary) hypertension (ICD-10 - I10) #Weight Management We discussed stress and cortisol management during this tough time for her A1c in office 5.3, euglycemic* thriving cont saududonnaro Continued emphasis on strict diet and increasing exercise as tolerated. 6 week f.u Total time spent today was 30 minutes of which greater than 50% was spent on coordinating and counseling Patient has been found to be obese with a BMI of (42). Patient has class (3) obesity. We are a board certified obesity and weight management practice Patient has trialed behavioral modification, dietary restrictions and exercise for a minimum of 6 months The most recent [place] [employer] of clinical endocrinologists and [employer]in[employer] guidelines recommend patients who have overweight BMI or obesity BMI, who also have metabolic syndrome, prediabetes, HLD, and other comorbidities or at risk of developing type 2 diabetes should aim for a weight loss goal of at least 10% of the baseline body weight Patient counseled regarding effects of GLP/GIP-1 agonists, and other FDA approved wgt loss meds with regards to a multifactorial approach of weight loss as mentioned above and not solely appetite suppression. We have discussed the mechanism of GLP-1's/GIP, dual incretins, appetitite suppressants I think this would be fantastic option for her given her metabolic workup and body composition We have discussed the risks and benefits and side effects including/and not limited to Sarcopenia, intestinal obstruction, constipation, nausea, lethargy, headache Discussed importance of protein consumption for muscle maintenance as well as strength and resistance training ,probiotics, B12 complex biotin , iron and other nutrients, To help avoid telogen effluvium We have discussed the lifelong requirement of nutritional supplementation And adherence to an exercise regimen as well as importance of follow-up The patient understands and agrees There is no history of medullary thyroid cancer or multiple endocrine neoplasia There is also no history of cardiovascular disease, hypertension, palpitations, or arrhythmias In the setting of potential stimulant/amphetami ne use such as phentermine We have also discussed risks and benefits, and the use of compounded medications to help offset the national shortages as well as financial implications vs trade name drugs Patient was reassured and welcomed to the practice. We discussed that we stress a hollistic medical approach with emphasis on lifestyle modification. Patient was informed that a healthy lifestyle with exercise and good eating habits can help reduce his risk of medical complications. He is explained that obesity increases his risk of diabetes, cardiovascular disease, or organ damage. We spent a lot of time discussing the relationship between food, exercise, sleep, mental health and obesity. Patient was counseled on the importance EATING local, organic food when possible. Patient was educated on clean 15 and dirty dozen. I provided information about reading books called The Food Rules by Manuel Goodwin and Eat Fat Get Lean by Dr Casper Iglesias. Self education is important in the journey for weight management. Patient was offered diagnostic testing. We want to measure visceral adiposity, advanced body composition, adverse lipids, fatty acid balance, risk for heart disease and atherosclerosis, markers of inflammation and genetic susceptibility. Patient was counseled on weight management and was advised to lose weight using A. Meal Replacement Products We discussed the lifelong requirement of nutritional supplementation and adherence to an exercise regimen as well as importance of dietary follow-up Patient was educated on the replacement products called optifast. This is a good way of taking fixed amount of calories. It has been shown in studies to be ineffective weight management tool. We also recommend maintaining adequate protein intake and muscle composition, 1.5mg/kg This however has to be coupled with lifestyle intervention as well as laboratory data and EKG monitoring. It is impossible to know how a person will tolerate complete meal replacement. The side effects of meal replacement and weight loss could include syncopal attacks, dizziness, gallstones, potential cholecystectomy, possible heart attack and even . The benefits of meal replacement would be potential weight loss but no guarantees can be made. Meal replacement products are not covered by insurance. Once the patient has bought these products we cannot return them B. Lifestyle management which includes several strategies as below 1. Eat a low carbohydrate good fat good protein diet. Eliminate refined carbohydrates from the diet. Continue blood sugar and sugared beverages. Eat local organic when possible. Cook your own meals. Read food labels. None about healthy snacks. Portion control and food with low glycemic index 2. Exercise regularly. Try to get at least 6000 steps a day. Use a predominant to track activity level. Consider using apps like [employer] ([employer]), myfitnesspal, lose it, stick as needed for self-monitoring and weight management. Consider group exercises. Consider hiring a personalized living manager. Regular exercise is mcginnis to sustainable health and prevents as a buffer against weight regain 3. Sleep is most important for healing. Tried to sleep at least 8 hours a night. A good quality sleep needs a sleep ritual with ideal room temperature of around 68. It might help to take a shower and have no electronics in the room and sleep in a very dark room without artificial light. Start her sleep routine and get up early in the morning and go to bed on time 4. Make a social connection. Surround yourself with positive people with positive energy. Connect with friends and family. 5. Get into the habit of meditating and mindfulness while doing everything. 6. Go outside and connect with nature. C. Prescription medications Patient was educated on the use of prescription medications for medical weight loss. This is a growing list and includes phentermine, Topamax,Qsymia, contrave, belviq and saxenda. All prescription medications could have side effects including but not limited to kidney stones, seizure disorder cardiac arrhythmias heart attack pancreatitis etc. etc.. Patient was encouraged to read the prescription insert and have coaching with their pharmacist and make an informed decision about taking medication and know that these medications are being prescribed with good intentions and we do not know how a patient would react to her medication. Sudden medications are FDA approved for weight loss and there is also off label use depending on patient's inability to afford medications in an attempt to lose weight D. Behavioral counseling was done to establish a relationship between food and an mood. Patient was provided information about local counseling and psychiatry and Dr Tejeda at [facility]. We would like to cover regular topics and build on low glycemic eating exercise mindful eating, using yoga and meditation along with deep breathing and connecting with friends and family. E. MASS PAT reviewed, Patient's current medications were reviewed and opinion was given on medication that can cause weight gain and can be substituted F. Patient was assessed for risk with obesity including and not limiting to atherosclerosis heart disease stroke kidney disease, restrictive lung disease, irritable bowel syndrome and overall mortality. Risk of developing prediabetes diabetes and metabolic syndrome was discussed G. Therapeutic plan: We have decided to make therapeutic plan which would include choosing wisely on calories restricting portion getting active, tracking weight, getting good quality sleep and working on time management H. Patient will follow up in (4) weeks for weight management Of note, some information is being carried forward from prior records for informational purposes only and is being cited so that efficiency, safety and quality of the patient's care is not compromised This note was prepared using voice recognition software and direct typing Please excuse inadvertent director biologics or typing errors, or uncorrected word substitutions Although every attempt has been made by the provider to proofread this document, occasional misspellings and typographical errors may still be present Due to the previous pandemic, and the use of personal protective equipment (PPE) This may decrease voice recognition accuracy Inadvertent director biologics errors may occur 12/26/2023 Pure hypercholesterol emia, unspecified (ICD-10 - E78.00) #Weight Management We discussed stress and cortisol management during this tough time for her A1c in office 5.3, euglycemic* thriving cont monujaro Continued emphasis on strict diet and increasing exercise as tolerated. 6 week f.u Total time spent today was 30 minutes of which greater than 50% was spent on coordinating and counseling Patient has been found to be obese with a BMI of (42). Patient has class (3) obesity. We are a board certified obesity and weight management practice Patient has trialed behavioral modification, dietary restrictions and exercise for a minimum of 6 months The most recent [place] [employer] of clinical endocrinologists and [place] [employer]in[employer] guidelines recommend patients who have overweight BMI or obesity BMI, who also have metabolic syndrome, prediabetes, HLD, and other comorbidities or at risk of developing type 2 diabetes should aim for a weight loss goal of at least 10% of the baseline body weight Patient counseled regarding effects of GLP/GIP-1 agonists, and other FDA approved wgt loss meds with regards to a multifactorial approach of weight loss as mentioned above and not solely appetite suppression. We have discussed the mechanism of GLP-1's/GIP, dual incretins, appetitite suppressants I think this would be fantastic option for her given her metabolic workup and body composition We have discussed the risks and benefits and side effects including/and not limited to Sarcopenia, intestinal obstruction, constipation, nausea, lethargy, headache Discussed importance of protein consumption for muscle maintenance as well as strength and resistance training ,probiotics, B12 complex biotin , iron and other nutrients, To help avoid telogen effluvium We have discussed the lifelong requirement of nutritional supplementation And adherence to an exercise regimen as well as importance of follow-up The patient understands and agrees There is no history of medullary thyroid cancer or multiple endocrine neoplasia There is also no history of cardiovascular disease, hypertension, palpitations, or arrhythmias In the setting of potential stimulant/amphetami ne use such as phentermine We have also discussed risks and benefits, and the use of compounded medications to help offset the national shortages as well as financial implications vs trade name drugs Patient was reassured and welcomed to the practice. We discussed that we stress a hollistic medical approach with emphasis on lifestyle modification. Patient was informed that a healthy lifestyle with exercise and good eating habits can help reduce his risk of medical complications. He is explained that obesity increases his risk of diabetes, cardiovascular disease, or organ damage. We spent a lot of time discussing the relationship between food, exercise, sleep, mental health and obesity. Patient was counseled on the importance EATING local, organic food when possible. Patient was educated on clean 15 and dirty dozen. I provided information about reading books called The Food Rules by Manuel Goodwin and Eat Fat Get Lean by Dr Casper Iglesias. Self education is important in the journey for weight management. Patient was offered diagnostic testing. We want to measure visceral adiposity, advanced body composition, adverse lipids, fatty acid balance, risk for heart disease and atherosclerosis, markers of inflammation and genetic susceptibility. Patient was counseled on weight management and was advised to lose weight using A. Meal Replacement Products We discussed the lifelong requirement of nutritional supplementation and adherence to an exercise regimen as well as importance of dietary follow-up Patient was educated on the replacement products called optifast. This is a good way of taking fixed amount of calories. It has been shown in studies to be ineffective weight management tool. We also recommend maintaining adequate protein intake and muscle composition, 1.5mg/kg This however has to be coupled with lifestyle intervention as well as laboratory data and EKG monitoring. It is impossible to know how a person will tolerate complete meal replacement. The side effects of meal replacement and weight loss could include syncopal attacks, dizziness, gallstones, potential cholecystectomy, possible heart attack and even . The benefits of meal replacement would be potential weight loss but no guarantees can be made. Meal replacement products are not covered by insurance. Once the patient has bought these products we cannot return them B. Lifestyle management which includes several strategies as below 1. Eat a low carbohydrate good fat good protein diet. Eliminate refined carbohydrates from the diet. Continue blood sugar and sugared beverages. Eat local organic when possible. Cook your own meals. Read food labels. None about healthy snacks. Portion control and food with low glycemic index 2. Exercise regularly. Try to get at least 6000 steps a day. Use a predominant to track activity level. Consider using apps like [employer], myfitnesspal, lose it, stick as needed for self-monitoring and weight management. Consider group exercises. Consider hiring a personalized living manager. Regular exercise is mcginnis to sustainable health and prevents as a buffer against weight regain 3. Sleep is most important for healing. Tried to sleep at least 8 hours a night. A good quality sleep needs a sleep ritual with ideal room temperature of around 68. It might help to take a shower and have no electronics in the room and sleep in a very dark room without artificial light. Start her sleep routine and get up early in the morning and go to bed on time 4. Make a social connection. Surround yourself with positive people with positive energy. Connect with friends and family. 5. Get into the habit of meditating and mindfulness while doing everything. 6. Go outside and connect with nature. C. Prescription medications Patient was educated on the use of prescription medications for medical weight loss. This is a growing list and includes phentermine, Topamax,Qsymia, contrave, belviq and saxenda. All prescription medications could have side effects including but not limited to kidney stones, seizure disorder cardiac arrhythmias heart attack pancreatitis etc. etc.. Patient was encouraged to read the prescription insert and have coaching with their pharmacist and make an informed decision about taking medication and know that these medications are being prescribed with good intentions and we do not know how a patient would react to her medication. Sudden medications are FDA approved for weight loss and there is also off label use depending on patient's inability to afford medications in an attempt to lose weight D. Behavioral counseling was done to establish a relationship between food and an mood. Patient was provided information about local counseling and psychiatry and Dr Tejeda at [facility]. We would like to cover regular topics and build on low glycemic eating exercise mindful eating, using yoga and meditation along with deep breathing and connecting with friends and family. E. MASS PAT reviewed, Patient's current medications were reviewed and opinion was given on medication that can cause weight gain and can be substituted F. Patient was assessed for risk with obesity including and not limiting to atherosclerosis heart disease stroke kidney disease, restrictive lung disease, irritable bowel syndrome and overall mortality. Risk of developing prediabetes diabetes and metabolic syndrome was discussed G. Therapeutic plan: We have decided to make therapeutic plan which would include choosing wisely on calories restricting portion getting active, tracking weight, getting good quality sleep and working on time management H. Patient will follow up in (4) weeks for weight management Of note, some information is being carried forward from prior records for informational purposes only and is being cited so that efficiency, safety and quality of the patient's care is not compromised This note was prepared using voice recognition software and direct typing Please excuse inadvertent director biologics or typing errors, or uncorrected word substitutions Although every attempt has been made by the provider to proofread this document, occasional misspellings and typographical errors may still be present Due to the previous pandemic, and the use of personal protective equipment (PPE) This may decrease voice recognition accuracy Inadvertent director biologics errors may occur 12/26/2023 Morbid obesity due to excess calories (ICD-10 - E66.01) #Weight Management We discussed stress and cortisol management during this tough time for her A1c in office 5.3, euglycemic* thriving imelda rivas Continued emphasis on strict diet and increasing exercise as tolerated. 6 week f.u Total time spent today was 30 minutes of which greater than 50% was spent on coordinating and counseling Patient has been found to be obese with a BMI of (42). Patient has class (3) obesity. We are a board certified obesity and weight management practice Patient has trialed behavioral modification, dietary restrictions and exercise for a minimum of 6 months The most recent [place] [employer] of clinical endocrinologists and [place] [employer]in[employer] guidelines recommend patients who have overweight BMI or obesity BMI, who also have metabolic syndrome, prediabetes, HLD, and other comorbidities or at risk of developing type 2 diabetes should aim for a weight loss goal of at least 10% of the baseline body weight Patient counseled regarding effects of GLP/GIP-1 agonists, and other FDA approved wgt loss meds with regards to a multifactorial approach of weight loss as mentioned above and not solely appetite suppression. We have discussed the mechanism of GLP-1's/GIP, dual incretins, appetitite suppressants I think this would be fantastic option for her given her metabolic workup and body composition We have discussed the risks and benefits and side effects including/and not limited to Sarcopenia, intestinal obstruction, constipation, nausea, lethargy, headache Discussed importance of protein consumption for muscle maintenance as well as strength and resistance training ,probiotics, B12 complex biotin , iron and other nutrients, To help avoid telogen effluvium We have discussed the lifelong requirement of nutritional supplementation And adherence to an exercise regimen as well as importance of follow-up The patient understands and agrees There is no history of medullary thyroid cancer or multiple endocrine neoplasia There is also no history of cardiovascular disease, hypertension, palpitations, or arrhythmias In the setting of potential stimulant/amphetami ne use such as phentermine We have also discussed risks and benefits, and the use of compounded medications to help offset the national shortages as well as financial implications vs trade name drugs Patient was reassured and welcomed to the practice. We discussed that we stress a hollistic medical approach with emphasis on lifestyle modification. Patient was informed that a healthy lifestyle with exercise and good eating habits can help reduce his risk of medical complications. He is explained that obesity increases his risk of diabetes, cardiovascular disease, or organ damage. We spent a lot of time discussing the relationship between food, exercise, sleep, mental health and obesity. Patient was counseled on the importance EATING local, organic food when possible. Patient was educated on clean 15 and dirty dozen. I provided information about reading books called The Food Rules by Manuel Goodwin and Eat Fat Get Lean by Dr Casper Iglesias. Self education is important in the journey for weight management. Patient was offered diagnostic testing. We want to measure visceral adiposity, advanced body composition, adverse lipids, fatty acid balance, risk for heart disease and atherosclerosis, markers of inflammation and genetic susceptibility. Patient was counseled on weight management and was advised to lose weight using A. Meal Replacement Products We discussed the lifelong requirement of nutritional supplementation and adherence to an exercise regimen as well as importance of dietary follow-up Patient was educated on the replacement products called optifast. This is a good way of taking fixed amount of calories. It has been shown in studies to be ineffective weight management tool. We also recommend maintaining adequate protein intake and muscle composition, 1.5mg/kg This however has to be coupled with lifestyle intervention as well as laboratory data and EKG monitoring. It is impossible to know how a person will tolerate complete meal replacement. The side effects of meal replacement and weight loss could include syncopal attacks, dizziness, gallstones, potential cholecystectomy, possible heart attack and even . The benefits of meal replacement would be potential weight loss but no guarantees can be made. Meal replacement products are not covered by insurance. Once the patient has bought these products we cannot return them B. Lifestyle management which includes several strategies as below 1. Eat a low carbohydrate good fat good protein diet. Eliminate refined carbohydrates from the diet. Continue blood sugar and sugared beverages. Eat local organic when possible. Cook your own meals. Read food labels. None about healthy snacks. Portion control and food with low glycemic index 2. Exercise regularly. Try to get at least 6000 steps a day. Use a predominant to track activity level. Consider using apps like [employer] ([employer], lose it, stick as needed for self-monitoring and weight management. Consider group exercises. Consider hiring a personalized living manager. Regular exercise is mcginnis to sustainable health and prevents as a buffer against weight regain 3. Sleep is most important for healing. Tried to sleep at least 8 hours a night. A good quality sleep needs a sleep ritual with ideal room temperature of around 68. It might help to take a shower and have no electronics in the room and sleep in a very dark room without artificial light. Start her sleep routine and get up early in the morning and go to bed on time 4. Make a social connection. Surround yourself with positive people with positive energy. Connect with friends and family. 5. Get into the habit of meditating and mindfulness while doing everything. 6. Go outside and connect with nature. C. Prescription medications Patient was educated on the use of prescription medications for medical weight loss. This is a growing list and includes phentermine, Topamax,Qsymia, contrave, belviq and saxenda. All prescription medications could have side effects including but not limited to kidney stones, seizure disorder cardiac arrhythmias heart attack pancreatitis etc. etc.. Patient was encouraged to read the prescription insert and have coaching with their pharmacist and make an informed decision about taking medication and know that these medications are being prescribed with good intentions and we do not know how a patient would react to her medication. Sudden medications are FDA approved for weight loss and there is also off label use depending on patient's inability to afford medications in an attempt to lose weight D. Behavioral counseling was done to establish a relationship between food and an mood. Patient was provided information about local counseling and psychiatry and Dr Tejeda at [facility]. We would like to cover regular topics and build on low glycemic eating exercise mindful eating, using yoga and meditation along with deep breathing and connecting with friends and family. E. MASS PAT reviewed, Patient's current medications were reviewed and opinion was given on medication that can cause weight gain and can be substituted F. Patient was assessed for risk with obesity including and not limiting to atherosclerosis heart disease stroke kidney disease, restrictive lung disease, irritable bowel syndrome and overall mortality. Risk of developing prediabetes diabetes and metabolic syndrome was discussed G. Therapeutic plan: We have decided to make therapeutic plan which would include choosing wisely on calories restricting portion getting active, tracking weight, getting good quality sleep and working on time management H. Patient will follow up in (4) weeks for weight management Of note, some information is being carried forward from prior records for informational purposes only and is being cited so that efficiency, safety and quality of the patient's care is not compromised This note was prepared using voice recognition software and direct typing Please excuse inadvertent director biologics or typing errors, or uncorrected word substitutions Although every attempt has been made by the provider to proofread this document, occasional misspellings and typographical errors may still be present Due to the previous pandemic, and the use of personal protective equipment (PPE) This may decrease voice recognition accuracy Inadvertent director biologics errors may occur 12/26/2023 Chronic pain syndrome (ICD-10 - G89.4) #Weight Management We discussed stress and cortisol management during this tough time for her A1c in office 5.3, euglycemic* thriving cont rob Continued emphasis on strict diet and increasing exercise as tolerated. 6 week f.u Total time spent today was 30 minutes of which greater than 50% was spent on coordinating and counseling Patient has been found to be obese with a BMI of (42). Patient has class (3) obesity. We are a board certified obesity and weight management practice Patient has trialed behavioral modification, dietary restrictions and exercise for a minimum of 6 months The most recent [place] [employer] endocrinologists and [employer] guidelines recommend patients who have overweight BMI or obesity BMI, who also have metabolic syndrome, prediabetes, HLD, and other comorbidities or at risk of developing type 2 diabetes should aim for a weight loss goal of at least 10% of the baseline body weight Patient counseled regarding effects of GLP/GIP-1 agonists, and other FDA approved wgt loss meds with regards to a multifactorial approach of weight loss as mentioned above and not solely appetite suppression. We have discussed the mechanism of GLP-1's/GIP, dual incretins, appetitite suppressants I think this would be fantastic option for her given her metabolic workup and body composition We have discussed the risks and benefits and side effects including/and not limited to Sarcopenia, intestinal obstruction, constipation, nausea, lethargy, headache Discussed importance of protein consumption for muscle maintenance as well as strength and resistance training ,probiotics, B12 complex biotin , iron and other nutrients, To help avoid telogen effluvium We have discussed the lifelong requirement of nutritional supplementation And adherence to an exercise regimen as well as importance of follow-up The patient understands and agrees There is no history of medullary thyroid cancer or multiple endocrine neoplasia There is also no history of cardiovascular disease, hypertension, palpitations, or arrhythmias In the setting of potential stimulant/amphetami ne use such as phentermine We have also discussed risks and benefits, and the use of compounded medications to help offset the national shortages as well as financial implications vs trade name drugs Patient was reassured and welcomed to the practice. We discussed that we stress a hollistic medical approach with emphasis on lifestyle modification. Patient was informed that a healthy lifestyle with exercise and good eating habits can help reduce his risk of medical complications. He is explained that obesity increases his risk of diabetes, cardiovascular disease, or organ damage. We spent a lot of time discussing the relationship between food, exercise, sleep, mental health and obesity. Patient was counseled on the importance EATING local, organic food when possible. Patient was educated on clean 15 and dirty dozen. I provided information about reading books called The Food Rules by Manuel Goodwin and Eat Fat Get Lean by Dr Casper Iglesias. Self education is important in the journey for weight management. Patient was offered diagnostic testing. We want to measure visceral adiposity, advanced body composition, adverse lipids, fatty acid balance, risk for heart disease and atherosclerosis, markers of inflammation and genetic susceptibility. Patient was counseled on weight management and was advised to lose weight using A. Meal Replacement Products We discussed the lifelong requirement of nutritional supplementation and adherence to an exercise regimen as well as importance of dietary follow-up Patient was educated on the replacement products called optifast. This is a good way of taking fixed amount of calories. It has been shown in studies to be ineffective weight management tool. We also recommend maintaining adequate protein intake and muscle composition, 1.5mg/kg This however has to be coupled with lifestyle intervention as well as laboratory data and EKG monitoring. It is impossible to know how a person will tolerate complete meal replacement. The side effects of meal replacement and weight loss could include syncopal attacks, dizziness, gallstones, potential cholecystectomy, possible heart attack and even . The benefits of meal replacement would be potential weight loss but no guarantees can be made. Meal replacement products are not covered by insurance. Once the patient has bought these products we cannot return them B. Lifestyle management which includes several strategies as below 1. Eat a low carbohydrate good fat good protein diet. Eliminate refined carbohydrates from the diet. Continue blood sugar and sugared beverages. Eat local organic when possible. Cook your own meals. Read food labels. None about healthy snacks. Portion control and food with low glycemic index 2. Exercise regularly. Try to get at least 6000 steps a day. Use a predominant to track activity level. Consider using apps like [employer], lose it, stick as needed for self-monitoring and weight management. Consider group exercises. Consider hiring a personalized living manager. Regular exercise is mcginnis to sustainable health and prevents as a buffer against weight regain 3. Sleep is most important for healing. Tried to sleep at least 8 hours a night. A good quality sleep needs a sleep ritual with ideal room temperature of around 68. It might help to take a shower and have no electronics in the room and sleep in a very dark room without artificial light. Start her sleep routine and get up early in the morning and go to bed on time 4. Make a social connection. Surround yourself with positive people with positive energy. Connect with friends and family. 5. Get into the habit of meditating and mindfulness while doing everything. 6. Go outside and connect with nature. C. Prescription medications Patient was educated on the use of prescription medications for medical weight loss. This is a growing list and includes phentermine, Topamax,Qsymia, contrave, belviq and saxenda. All prescription medications could have side effects including but not limited to kidney stones, seizure disorder cardiac arrhythmias heart attack pancreatitis etc. etc.. Patient was encouraged to read the prescription insert and have coaching with their pharmacist and make an informed decision about taking medication and know that these medications are being prescribed with good intentions and we do not know how a patient would react to her medication. Sudden medications are FDA approved for weight loss and there is also off label use depending on patient's inability to afford medications in an attempt to lose weight D. Behavioral counseling was done to establish a relationship between food and an mood. Patient was provided information about local counseling and psychiatry and Dr Tejeda at [facility]. We would like to cover regular topics and build on low glycemic eating exercise mindful eating, using yoga and meditation along with deep breathing and connecting with friends and family. E. MASS PAT reviewed, Patient's current medications were reviewed and opinion was given on medication that can cause weight gain and can be substituted F. Patient was assessed for risk with obesity including and not limiting to atherosclerosis heart disease stroke kidney disease, restrictive lung disease, irritable bowel syndrome and overall mortality. Risk of developing prediabetes diabetes and metabolic syndrome was discussed G. Therapeutic plan: We have decided to make therapeutic plan which would include choosing wisely on calories restricting portion getting active, tracking weight, getting good quality sleep and working on time management H. Patient will follow up in (4) weeks for weight management Of note, some information is being carried forward from prior records for informational purposes only and is being cited so that efficiency, safety and quality of the patient's care is not compromised This note was prepared using voice recognition software and direct typing Please excuse inadvertent director biologics or typing errors, or uncorrected word substitutions Although every attempt has been made by the provider to proofread this document, occasional misspellings and typographical errors may still be present Due to the previous pandemic, and the use of personal protective equipment (PPE) This may decrease voice recognition accuracy Inadvertent director biologics errors may occur 12/26/2023 Fibromyalgia (ICD-10 - M79.7) #Weight Management We discussed stress and cortisol management during this tough time for her A1c in office 5.3, euglycemic* thriving cont gueraro Continued emphasis on strict diet and increasing exercise as tolerated. 6 week f.u Total time spent today was 30 minutes of which greater than 50% was spent on coordinating and counseling Patient has been found to be obese with a BMI of (42). Patient has class (3) obesity. We are a board certified obesity and weight management practice Patient has trialed behavioral modification, dietary restrictions and exercise for a minimum of 6 months The most recent [place] [employer] of clinical endocrinologists and [place] [employer] guidelines recommend patients who have overweight BMI or obesity BMI, who also have metabolic syndrome, prediabetes, HLD, and other comorbidities or at risk of developing type 2 diabetes should aim for a weight loss goal of at least 10% of the baseline body weight Patient counseled regarding effects of GLP/GIP-1 agonists, and other FDA approved wgt loss meds with regards to a multifactorial approach of weight loss as mentioned above and not solely appetite suppression. We have discussed the mechanism of GLP-1's/GIP, dual incretins, appetitite suppressants I think this would be fantastic option for her given her metabolic workup and body composition We have discussed the risks and benefits and side effects including/and not limited to Sarcopenia, intestinal obstruction, constipation, nausea, lethargy, headache Discussed importance of protein consumption for muscle maintenance as well as strength and resistance training ,probiotics, B12 complex biotin , iron and other nutrients, To help avoid telogen effluvium We have discussed the lifelong requirement of nutritional supplementation And adherence to an exercise regimen as well as importance of follow-up The patient understands and agrees There is no history of medullary thyroid cancer or multiple endocrine neoplasia There is also no history of cardiovascular disease, hypertension, palpitations, or arrhythmias In the setting of potential stimulant/amphetami ne use such as phentermine We have also discussed risks and benefits, and the use of compounded medications to help offset the national shortages as well as financial implications vs trade name drugs Patient was reassured and welcomed to the practice. We discussed that we stress a hollistic medical approach with emphasis on lifestyle modification. Patient was informed that a healthy lifestyle with exercise and good eating habits can help reduce his risk of medical complications. He is explained that obesity increases his risk of diabetes, cardiovascular disease, or organ damage. We spent a lot of time discussing the relationship between food, exercise, sleep, mental health and obesity. Patient was counseled on the importance EATING local, organic food when possible. Patient was educated on clean 15 and dirty dozen. I provided information about reading books called The Food Rules by Manuel Goodwin and Eat Fat Get Lean by Dr Casper Iglesias. Self education is important in the journey for weight management. Patient was offered diagnostic testing. We want to measure visceral adiposity, advanced body composition, adverse lipids, fatty acid balance, risk for heart disease and atherosclerosis, markers of inflammation and genetic susceptibility. Patient was counseled on weight management and was advised to lose weight using A. Meal Replacement Products We discussed the lifelong requirement of nutritional supplementation and adherence to an exercise regimen as well as importance of dietary follow-up Patient was educated on the replacement products called optifast. This is a good way of taking fixed amount of calories. It has been shown in studies to be ineffective weight management tool. We also recommend maintaining adequate protein intake and muscle composition, 1.5mg/kg This however has to be coupled with lifestyle intervention as well as laboratory data and EKG monitoring. It is impossible to know how a person will tolerate complete meal replacement. The side effects of meal replacement and weight loss could include syncopal attacks, dizziness, gallstones, potential cholecystectomy, possible heart attack and even . The benefits of meal replacement would be potential weight loss but no guarantees can be made. Meal replacement products are not covered by insurance. Once the patient has bought these products we cannot return them B. Lifestyle management which includes several strategies as below 1. Eat a low carbohydrate good fat good protein diet. Eliminate refined carbohydrates from the diet. Continue blood sugar and sugared beverages. Eat local organic when possible. Cook your own meals. Read food labels. None about healthy snacks. Portion control and food with low glycemic index 2. Exercise regularly. Try to get at least 6000 steps a day. Use a predominant to track activity level. Consider using apps like [employer], lose it, stick as needed for self-monitoring and weight management. Consider group exercises. Consider hiring a personalized living manager. Regular exercise is mcginnis to sustainable health and prevents as a buffer against weight regain 3. Sleep is most important for healing. Tried to sleep at least 8 hours a night. A good quality sleep needs a sleep ritual with ideal room temperature of around 68. It might help to take a shower and have no electronics in the room and sleep in a very dark room without artificial light. Start her sleep routine and get up early in the morning and go to bed on time 4. Make a social connection. Surround yourself with positive people with positive energy. Connect with friends and family. 5. Get into the habit of meditating and mindfulness while doing everything. 6. Go outside and connect with nature. C. Prescription medications Patient was educated on the use of prescription medications for medical weight loss. This is a growing list and includes phentermine, Topamax,Qsymia, contrave, belviq and saxenda. All prescription medications could have side effects including but not limited to kidney stones, seizure disorder cardiac arrhythmias heart attack pancreatitis etc. etc.. Patient was encouraged to read the prescription insert and have coaching with their pharmacist and make an informed decision about taking medication and know that these medications are being prescribed with good intentions and we do not know how a patient would react to her medication. Sudden medications are FDA approved for weight loss and there is also off label use depending on patient's inability to afford medications in an attempt to lose weight D. Behavioral counseling was done to establish a relationship between food and an mood. Patient was provided information about local counseling and psychiatry and Dr Tejeda at [email or web address]. We would like to cover regular topics and build on low glycemic eating exercise mindful eating, using yoga and meditation along with deep breathing and connecting with friends and family. E. MASS PAT reviewed, Patient's current medications were reviewed and opinion was given on medication that can cause weight gain and can be substituted F. Patient was assessed for risk with obesity including and not limiting to atherosclerosis heart disease stroke kidney disease, restrictive lung disease, irritable bowel syndrome and overall mortality. Risk of developing prediabetes diabetes and metabolic syndrome was discussed G. Therapeutic plan: We have decided to make therapeutic plan which would include choosing wisely on calories restricting portion getting active, tracking weight, getting good quality sleep and working on time management H. Patient will follow up in (4) weeks for weight management Of note, some information is being carried forward from prior records for informational purposes only and is being cited so that efficiency, safety and quality of the patient's care is not compromised This note was prepared using voice recognition software and direct typing Please excuse inadvertent director biologics or typing errors, or uncorrected word substitutions Although every attempt has been made by the provider to proofread this document, occasional misspellings and typographical errors may still be present Due to the previous pandemic, and the use of personal protective equipment (PPE) This may decrease voice recognition accuracy Inadvertent director biologics errors may occur 12/26/2023 BMI 45.0-49.9, adult (ICD-10 - Z68.42) #Weight Management We discussed stress and cortisol management during this tough time for her A1c in office 5.3, euglycemic* thriving cont saududnonaro Continued emphasis on strict diet and increasing exercise as tolerated. 6 week f.u Total time spent today was 30 minutes of which greater than 50% was spent on coordinating and counseling Patient has been found to be obese with a BMI of (42). Patient has class (3) obesity. We are a board certified obesity and weight management practice Patient has trialed behavioral modification, dietary restrictions and exercise for a minimum of 6 months The most recent [place] [employer] of clinical endocrinologists and [place] [employer] guidelines recommend patients who have overweight BMI or obesity BMI, who also have metabolic syndrome, prediabetes, HLD, and other comorbidities or at risk of developing type 2 diabetes should aim for a weight loss goal of at least 10% of the baseline body weight Patient counseled regarding effects of GLP/GIP-1 agonists, and other FDA approved wgt loss meds with regards to a multifactorial approach of weight loss as mentioned above and not solely appetite suppression. We have discussed the mechanism of GLP-1's/GIP, dual incretins, appetitite suppressants I think this would be fantastic option for her given her metabolic workup and body composition We have discussed the risks and benefits and side effects including/and not limited to Sarcopenia, intestinal obstruction, constipation, nausea, lethargy, headache Discussed importance of protein consumption for muscle maintenance as well as strength and resistance training ,probiotics, B12 complex biotin , iron and other nutrients, To help avoid telogen effluvium We have discussed the lifelong requirement of nutritional supplementation And adherence to an exercise regimen as well as importance of follow-up The patient understands and agrees There is no history of medullary thyroid cancer or multiple endocrine neoplasia There is also no history of cardiovascular disease, hypertension, palpitations, or arrhythmias In the setting of potential stimulant/amphetami ne use such as phentermine We have also discussed risks and benefits, and the use of compounded medications to help offset the national shortages as well as financial implications vs trade name drugs Patient was reassured and welcomed to the practice. We discussed that we stress a hollistic medical approach with emphasis on lifestyle modification. Patient was informed that a healthy lifestyle with exercise and good eating habits can help reduce his risk of medical complications. He is explained that obesity increases his risk of diabetes, cardiovascular disease, or organ damage. We spent a lot of time discussing the relationship between food, exercise, sleep, mental health and obesity. Patient was counseled on the importance EATING local, organic food when possible. Patient was educated on clean 15 and dirty dozen. I provided information about reading books called The Food Rules by Manuel Goodwin and Eat Fat Get Lean by Dr Casper Iglesias. Self education is important in the journey for weight management. Patient was offered diagnostic testing. We want to measure visceral adiposity, advanced body composition, adverse lipids, fatty acid balance, risk for heart disease and atherosclerosis, markers of inflammation and genetic susceptibility. Patient was counseled on weight management and was advised to lose weight using A. Meal Replacement Products We discussed the lifelong requirement of nutritional supplementation and adherence to an exercise regimen as well as importance of dietary follow-up Patient was educated on the replacement products called optifast. This is a good way of taking fixed amount of calories. It has been shown in studies to be ineffective weight management tool. We also recommend maintaining adequate protein intake and muscle composition, 1.5mg/kg This however has to be coupled with lifestyle intervention as well as laboratory data and EKG monitoring. It is impossible to know how a person will tolerate complete meal replacement. The side effects of meal replacement and weight loss could include syncopal attacks, dizziness, gallstones, potential cholecystectomy, possible heart attack and even . The benefits of meal replacement would be potential weight loss but no guarantees can be made. Meal replacement products are not covered by insurance. Once the patient has bought these products we cannot return them B. Lifestyle management which includes several strategies as below 1. Eat a low carbohydrate good fat good protein diet. Eliminate refined carbohydrates from the diet. Continue blood sugar and sugared beverages. Eat local organic when possible. Cook your own meals. Read food labels. None about healthy snacks. Portion control and food with low glycemic index 2. Exercise regularly. Try to get at least 6000 steps a day. Use a predominant to track activity level. Consider using apps like [employer] ([employer]), [employer], lose it, stick as needed for self-monitoring and weight management. Consider group exercises. Consider hiring a personalized living manager. Regular exercise is mcginnis to sustainable health and prevents as a buffer against weight regain 3. Sleep is most important for healing. Tried to sleep at least 8 hours a night. A good quality sleep needs a sleep ritual with ideal room temperature of around 68. It might help to take a shower and have no electronics in the room and sleep in a very dark room without artificial light. Start her sleep routine and get up early in the morning and go to bed on time 4. Make a social connection. Surround yourself with positive people with positive energy. Connect with friends and family. 5. Get into the habit of meditating and mindfulness while doing everything. 6. Go outside and connect with nature. C. Prescription medications Patient was educated on the use of prescription medications for medical weight loss. This is a growing list and includes phentermine, Topamax,Qsymia, contrave, belviq and saxenda. All prescription medications could have side effects including but not limited to kidney stones, seizure disorder cardiac arrhythmias heart attack pancreatitis etc. etc.. Patient was encouraged to read the prescription insert and have coaching with their pharmacist and make an informed decision about taking medication and know that these medications are being prescribed with good intentions and we do not know how a patient would react to her medication. Sudden medications are FDA approved for weight loss and there is also off label use depending on patient's inability to afford medications in an attempt to lose weight D. Behavioral counseling was done to establish a relationship between food and an mood. Patient was provided information about local counseling and psychiatry and Dr Tejeda at [facility]. We would like to cover regular topics and build on low glycemic eating exercise mindful eating, using yoga and meditation along with deep breathing and connecting with friends and family. E. MASS PAT reviewed, Patient's current medications were reviewed and opinion was given on medication that can cause weight gain and can be substituted F. Patient was assessed for risk with obesity including and not limiting to atherosclerosis heart disease stroke kidney disease, restrictive lung disease, irritable bowel syndrome and overall mortality. Risk of developing prediabetes diabetes and metabolic syndrome was discussed G. Therapeutic plan: We have decided to make therapeutic plan which would include choosing wisely on calories restricting portion getting active, tracking weight, getting good quality sleep and working on time management H. Patient will follow up in (4) weeks for weight management Of note, some information is being carried forward from prior records for informational purposes only and is being cited so that efficiency, safety and quality of the patient's care is not compromised This note was prepared using voice recognition software and direct typing Please excuse inadvertent director biologics or typing errors, or uncorrected word substitutions Although every attempt has been made by the provider to proofread this document, occasional misspellings and typographical errors may still be present Due to the previous pandemic, and the use of personal protective equipment (PPE) This may decrease voice recognition accuracy Inadvertent director biologics errors may occur 12/26/2023 Prediabetes (ICD-10 - R73.03) #Weight Management We discussed stress and cortisol management during this tough time for her A1c in office 5.3, euglycemic* thriving cont monujaro Continued emphasis on strict diet and increasing exercise as tolerated. 6 week f.u Total time spent today was 30 minutes of which greater than 50% was spent on coordinating and counseling Patient has been found to be obese with a BMI of (42). Patient has class (3) obesity. We are a board certified obesity and weight management practice Patient has trialed behavioral modification, dietary restrictions and exercise for a minimum of 6 months The most recent [place] [employer] of clinical endocrinologists and [employer] endocrinology guidelines recommend patients who have overweight BMI or obesity BMI, who also have metabolic syndrome, prediabetes, HLD, and other comorbidities or at risk of developing type 2 diabetes should aim for a weight loss goal of at least 10% of the baseline body weight Patient counseled regarding effects of GLP/GIP-1 agonists, and other FDA approved wgt loss meds with regards to a multifactorial approach of weight loss as mentioned above and not solely appetite suppression. We have discussed the mechanism of GLP-1's/GIP, dual incretins, appetitite suppressants I think this would be fantastic option for her given her metabolic workup and body composition We have discussed the risks and benefits and side effects including/and not limited to Sarcopenia, intestinal obstruction, constipation, nausea, lethargy, headache Discussed importance of protein consumption for muscle maintenance as well as strength and resistance training ,probiotics, B12 complex biotin , iron and other nutrients, To help avoid telogen effluvium We have discussed the lifelong requirement of nutritional supplementation And adherence to an exercise regimen as well as importance of follow-up The patient understands and agrees There is no history of medullary thyroid cancer or multiple endocrine neoplasia There is also no history of cardiovascular disease, hypertension, palpitations, or arrhythmias In the setting of potential stimulant/amphetami ne use such as phentermine We have also discussed risks and benefits, and the use of compounded medications to help offset the national shortages as well as financial implications vs trade name drugs Patient was reassured and welcomed to the practice. We discussed that we stress a hollistic medical approach with emphasis on lifestyle modification. Patient was informed that a healthy lifestyle with exercise and good eating habits can help reduce his risk of medical complications. He is explained that obesity increases his risk of diabetes, cardiovascular disease, or organ damage. We spent a lot of time discussing the relationship between food, exercise, sleep, mental health and obesity. Patient was counseled on the importance EATING local, organic food when possible. Patient was educated on clean 15 and dirty dozen. I provided information about reading books called The Food Rules by Manuel Goodwin and Eat Fat Get Lean by Dr Casper Iglesias. Self education is important in the journey for weight management. Patient was offered diagnostic testing. We want to measure visceral adiposity, advanced body composition, adverse lipids, fatty acid balance, risk for heart disease and atherosclerosis, markers of inflammation and genetic susceptibility. Patient was counseled on weight management and was advised to lose weight using A. Meal Replacement Products We discussed the lifelong requirement of nutritional supplementation and adherence to an exercise regimen as well as importance of dietary follow-up Patient was educated on the replacement products called optifast. This is a good way of taking fixed amount of calories. It has been shown in studies to be ineffective weight management tool. We also recommend maintaining adequate protein intake and muscle composition, 1.5mg/kg This however has to be coupled with lifestyle intervention as well as laboratory data and EKG monitoring. It is impossible to know how a person will tolerate complete meal replacement. The side effects of meal replacement and weight loss could include syncopal attacks, dizziness, gallstones, potential cholecystectomy, possible heart attack and even . The benefits of meal replacement would be potential weight loss but no guarantees can be made. Meal replacement products are not covered by insurance. Once the patient has bought these products we cannot return them B. Lifestyle management which includes several strategies as below 1. Eat a low carbohydrate good fat good protein diet. Eliminate refined carbohydrates from the diet. Continue blood sugar and sugared beverages. Eat local organic when possible. Cook your own meals. Read food labels. None about healthy snacks. Portion control and food with low glycemic index 2. Exercise regularly. Try to get at least 6000 steps a day. Use a predominant to track activity level. Consider using apps like [employer]), [employer], lose it, stick as needed for self-monitoring and weight management. Consider group exercises. Consider hiring a personalized living manager. Regular exercise is mcginnis to sustainable health and prevents as a buffer against weight regain 3. Sleep is most important for healing. Tried to sleep at least 8 hours a night. A good quality sleep needs a sleep ritual with ideal room temperature of around 68. It might help to take a shower and have no electronics in the room and sleep in a very dark room without artificial light. Start her sleep routine and get up early in the morning and go to bed on time 4. Make a social connection. Surround yourself with positive people with positive energy. Connect with friends and family. 5. Get into the habit of meditating and mindfulness while doing everything. 6. Go outside and connect with nature. C. Prescription medications Patient was educated on the use of prescription medications for medical weight loss. This is a growing list and includes phentermine, Topamax,Qsymia, contrave, belviq and saxenda. All prescription medications could have side effects including but not limited to kidney stones, seizure disorder cardiac arrhythmias heart attack pancreatitis etc. etc.. Patient was encouraged to read the prescription insert and have coaching with their pharmacist and make an informed decision about taking medication and know that these medications are being prescribed with good intentions and we do not know how a patient would react to her medication. Sudden medications are FDA approved for weight loss and there is also off label use depending on patient's inability to afford medications in an attempt to lose weight D. Behavioral counseling was done to establish a relationship between food and an mood. Patient was provided information about local counseling and psychiatry and Dr Tejeda at [facility]. We would like to cover regular topics and build on low glycemic eating exercise mindful eating, using yoga and meditation along with deep breathing and connecting with friends and family. E. MASS PAT reviewed, Patient's current medications were reviewed and opinion was given on medication that can cause weight gain and can be substituted F. Patient was assessed for risk with obesity including and not limiting to atherosclerosis heart disease stroke kidney disease, restrictive lung disease, irritable bowel syndrome and overall mortality. Risk of developing prediabetes diabetes and metabolic syndrome was discussed G. Therapeutic plan: We have decided to make therapeutic plan which would include choosing wisely on calories restricting portion getting active, tracking weight, getting good quality sleep and working on time management H. Patient will follow up in (4) weeks for weight management Of note, some information is being carried forward from prior records for informational purposes only and is being cited so that efficiency, safety and quality of the patient's care is not compromised This note was prepared using voice recognition software and direct typing Please excuse inadvertent director biologics or typing errors, or uncorrected word substitutions Although every attempt has been made by the provider to proofread this document, occasional misspellings and typographical errors may still be present Due to the previous pandemic, and the use of personal protective equipment (PPE) This may decrease voice recognition accuracy Inadvertent director biologics errors may occur Plan Of Treatment Medication Medication Name Sig Start Date Stop Date Notes Mounjaro 2.5 MG/0.5ML 2.5mg Subcutaneous weekly; Duration: 30 days Progress Notes * JESUS LOPEZOB: [birth year] (70 yo F)Acc No.[id number]:12/26/2023 Patient: JESUS CRONIN Provider: Alvin FRANCO NP :[id number] A ge:68 Y S ex:Female Date:12/26/2023 Address:[address] [place], [place] [id number] Subjective: * Chief Complaints: * * HPI: C onstitutional: Patient is here today for a weight management f/u visit Patient seen and examined. Full past medical history, social history, family history, allergies and current medications were reviewed and updated. Body composition analysis reviewed today, as expected increased BMI, visceral adiposity, fat mass index, waist cirumference Good skeletal mass composition, Good water composition Caloric energy expenditure discussed #Weight Management 12/26/2023 Patient was started on Mounjaro 12.5mg once a week. Patient started 12.5 today due to not finding her 10mg dose in any pharmacy. Patient states she takes protein bars during the day to increase protein intake, but does not count grams. No physical activity due to chronic back pain and groin pain. Patient taking Bcomplex, Vit D and Biotin Patient states she has increased stress due to her sister being dx with ovarian cancer and sick in the hospital and has noticed increased cravings due to the stress. We discussed stress and cortisol managers Injection day Tuesday No side effects since starting medication *In office updated A1c, 09/2023, 5.3* now euglycemic Discussed importance of protein consumption for muscle maintenance, strength and resistance training as well as probiotics, B12 complex biotin , iron and other nutrients, To also help avoid telogen effluvium while on weight loss medications such as GLP-1 Patient has been adhering to a strict diet of white meat/fish and greens and fruits. uses low carb/fat protein bars for supplemental protein intake. Tries to walk a lot during the day, [facility] s/p CHAD 07/18/2023 12/26/2023, Weight , BMI 11/02/2023, Weight 234lbs, BMI (-7lbs) 09/13/2023, Weight 241lbs ,BMI 42, (-19lbs) 06/01/2023 Weight 260 lbs, BMI 46 (-13) 04/14/2023: Weight 273 lbs, BMI 48: Patient referred to us from Enoch Zapata PCP Patient works as Retired/[employer] Highest weight: now 273 lbs Lowest weight: 135-140 lbs Goal weight:150-160 lbs NADIA screening, Denies sxs Metabolic workup: Comprehensive labs July 2023 Electrolytes renal function LFTs are stable Total cholesterol 171, LDL 88, HDL 52, triglycerides 156 Has not had an echocardiogram recently. Previous TTE @ [facility] Diet: grAb and go, no portion control/calorie counting Exercise: Currently not tracking steps daily. Utilizes walker, min activity Non-smoker. quit 2017 ETOH use: Denies. * ROS: A ll Other Systems: Review of Systems (ROS) A ll others negative except those mentioned in HPI. * Medical History: Objective: * Vitals: * Examination: G eneral Examination: GENERAL APPEARANCE: i n no acute distress, well developed, well nourished. H EAD: n ormocephalic, atraumatic. E YES: p upils equal, round, reactive to light and accommodation. E ARS: n ormal. O RAL CAVITY: m ucosa moist. T HROAT: c lear. N CARLITO/THYROID: n carlito supple, full range of motion, no cervical lymphadenopathy. S KIN: n o suspicious lesions, warm and dry. H EART: n o murmurs, regular rate and rhythm, S1, S2 normal. L UNGS: c lear to auscultation bilaterally. A BDOMEN: n ormal, bowel sounds present, soft, nontender, nondistended. E XTREMITIES: n o clubbing, cyanosis, or edema. N EUROLOGIC: n onfocal, motor strength normal upper and lower extremities, sensory exam intact. Assessment: * Assessment: 1. M orbid obesity due to excess calories - E66.01 (Primary) 2 . E ssential (primary) hypertension - I10 3 . P ure hypercholesterolemia, unspecified - E78.00 4 . C hronic pain syndrome - G89.4 5 . F ibromyalgia - M79.7 6 . B OH 45.0-49.9, adult - Z68.42 7 . P rediabetes - R73.03 #Weight Management We discussed stress and cortisol management during this tough time for her A1c in office 5.3, euglycemic* tamikoiving imelda rivas Continued emphasis on strict diet and increasing exercise as tolerated. 6 week f.u Total time spent today was 30 minutes of which greater than 50% was spent on coordinating and counseling Patient has been found to be obese with a BMI of (42). Patient has class (3) obesity. We are a board certified obesity and weight management practice Patient has trialed behavioral modification, dietary restrictions and exercise for a minimum of 6 months The most recent [place] Association of clinical endocrinologists and [place] [employer] of endocrinology guidelines recommend patients who have overweight BMI or obesity BMI, who also have metabolic syndrome, prediabetes, HLD, and other comorbidities or at risk of developing type 2 diabetes should aim for a weight loss goal of at least 10% of the baseline body weight Patient counseled regarding effects of GLP/GIP-1 agonists, and other FDA approved wgt loss meds with regards to a multifactorial approach of weight loss as mentioned above and not solely appetite suppression. We have discussed the mechanism of GLP-1's/GIP, dual incretins, appetitite suppressants I think this would be fantastic option for her given her metabolic workup and body composition We have discussed the risks and benefits and side effects including/and not limited to Sarcopenia, intestinal obstruction, constipation, nausea, lethargy, headache Discussed importance of protein consumption for muscle maintenance as well as strength and resistance training ,probiotics, B12 complex biotin , iron and other nutrients, To help avoid telogen effluvium We have discussed the lifelong requirement of nutritional supplementation And adherence to an exercise regimen as well as importance of follow-up The patient understands and agrees There is no history of medullary thyroid cancer or multiple endocrine neoplasia There is also no history of cardiovascular disease, hypertension, palpitations, or arrhythmias In the setting of potential stimulant/amphetamine use such as phentermine We have also discussed risks and benefits, and the use of compounded medications to help offset the national shortages as well as financial implications vs trade name drugs Patient was reassured and welcomed to the practice. We discussed that we stress a hollistic medical approach with emphasis on lifestyle modification. Patient was informed that a healthy lifestyle with exercise and good eating habits can help reduce his risk of medical complications. He is explained that obesity increases his risk of diabetes, cardiovascular disease, or organ damage. We spent a lot of time discussing the relationship between food, exercise, sleep, mental health and obesity. Patient was counseled on the importance EATING local, organic food when possible. Patient was educated on clean 15 and dirty dozen. I provided information about reading books called The Food Rules by Manuel Goodwin and Eat Fat Get Lean by Dr Casper Iglesias. Self education is important in the journey for weight management. Patient was offered diagnostic testing. We want to measure visceral adiposity, advanced body composition, adverse lipids, fatty acid balance, risk for heart disease and atherosclerosis, markers of inflammation and genetic susceptibility. Patient was counseled on weight management and was advised to lose weight using A. Meal Replacement Products We discussed the lifelong requirement of nutritional supplementation and adherence to an exercise regimen as well as importance of dietary follow-up Patient was educated on the replacement products called optifast. This is a good way of taking fixed amount of calories. It has been shown in studies to be ineffective weight management tool. We also recommend maintaining adequate protein intake and muscle composition, 1.5mg/kg This however has to be coupled with lifestyle intervention as well as laboratory data and EKG monitoring. It is impossible to know how a person will tolerate complete meal replacement. The side effects of meal replacement and weight loss could include syncopal attacks, dizziness, gallstones, potential cholecystectomy, possible heart attack and even . The benefits of meal replacement would be potential weight loss but no guarantees can be made. Meal replacement products are not covered by insurance. Once the patient has bought these products we cannot return them B. Lifestyle management which includes several strategies as below 1. Eat a low carbohydrate good fat good protein diet. Eliminate refined carbohydrates from the diet. Continue blood sugar and sugared beverages. Eat local organic when possible. Cook your own meals. Read food labels. None about healthy snacks. Portion control and food with low glycemic index 2. Exercise regularly. Try to get at least 6000 steps a day. Use a predominant to track activity level. Consider using apps like [employer], lose it, stick as needed for self-monitoring and weight management. Consider group exercises. Consider hiring a personalized living manager. Regular exercise is mcginnis to sustainable health and prevents as a buffer against weight regain 3. Sleep is most important for healing. Tried to sleep at least 8 hours a night. A good quality sleep needs a sleep ritual with ideal room temperature of around 68. It might help to take a shower and have no electronics in the room and sleep in a very dark room without artificial light. Start her sleep routine and get up early in the morning and go to bed on time 4. Make a social connection. Surround yourself with positive people with positive energy. Connect with friends and family. 5. Get into the habit of meditating and mindfulness while doing everything. 6. Go outside and connect with nature. C. Prescription medications Patient was educated on the use of prescription medications for medical weight loss. This is a growing list and includes phentermine, Topamax,Qsymia, contrave, belviq and saxenda. All prescription medications could have side effects including but not limited to kidney stones, seizure disorder cardiac arrhythmias heart attack pancreatitis etc. etc.. Patient was encouraged to read the prescription insert and have coaching with their pharmacist and make an informed decision about taking medication and know that these medications are being prescribed with good intentions and we do not know how a patient would react to her medication. Sudden medications are FDA approved for weight loss and there is also off label use depending on patient's inability to afford medications in an attempt to lose weight D. Behavioral counseling was done to establish a relationship between food and an mood. Patient was provided information about local counseling and psychiatry and Dr Tejeda at [facility]. We would like to cover regular topics and build on low glycemic eating exercise mindful eating, using yoga and meditation along with deep breathing and connecting with friends and family. E. MASS PAT reviewed, Patient's current medications were reviewed and opinion was given on medication that can cause weight gain and can be substituted F. Patient was assessed for risk with obesity including and not limiting to atherosclerosis heart disease stroke kidney disease, restrictive lung disease, irritable bowel syndrome and overall mortality. Risk of developing prediabetes diabetes and metabolic syndrome was discussed G. Therapeutic plan: We have decided to make therapeutic plan which would include choosing wisely on calories restricting portion getting active, tracking weight, getting good quality sleep and working on time management H. Patient will follow up in (4) weeks for weight management Of note, some information is being carried forward from prior records for informational purposes only and is being cited so that efficiency, safety and quality of the patient's care is not compromised This note was prepared using voice recognition software and direct typing Please excuse inadvertent director biologics or typing errors, or uncorrected word substitutions Although every attempt has been made by the provider to proofread this document, occasional misspellings and typographical errors may still be present Due to the previous pandemic, and the use of personal protective equipment (PPE) This may decrease voice recognition accuracy Inadvertent director biologics errors may occur. Plan: * Treatment: * Images: Billing Information: * Visit Code: * Procedure Codes: * Electronic signature of PRANAY RIZZO LISAEMD on 05/01/2025 at 09:22 AM EDT Sign off status: Pending * Provider: Alvin FRANCO NP Date: 0 12/26/2023 Generated for No diane/Yanni/Caitlin on: 0 05/01/2025 09:22 AM EDT History and Physical Notes * HPI (History of Present Illness) Category Sub-Category Detail Notes Category Not es Constitutional Patient is here today for a weight management f/u visit Patient seen and examined. Full past medical history, social history, family history, allergies and current medications were reviewed and updated. Body composition analysis reviewed today, as expected increased BMI, visceral adiposity, fat mass index, waist cirumference Good skeletal mass composition, Good water composition Caloric energy expenditure discussed #Weight Management 12/26/2023 Patient was started on Mounjaro 12.5mg once a week. Patient started 12.5 today due to not finding her 10mg dose in any pharmacy. Patient states she takes protein bars during the day to increase protein intake, but does not count grams. No physical activity due to chronic back pain and groin pain. Patient taking Bcomplex, Vit D and Biotin Patient states she has increased stress due to her sister being dx with ovarian cancer and sick in the hospital and has noticed increased cravings due to the stress. We discussed stress and cortisol managers Injection day Tuesday No side effects since starting medication *In office updated A1c, 09/2023, 5.3* now euglycemic Discussed importance of protein consumption for muscle maintenance, strength and resistance training as well as probiotics, B12 complex biotin , iron and other nutrients, To also help avoid telogen effluvium while on weight loss medications such as GLP-1 Patient has been adhering to a strict diet of white meat/fish and greens and fruits. uses low carb/fat protein bars for supplemental protein intake. Tries to walk a lot during the day, needs clearance from PCP to go to [employer] [facility]. s/p CHAD 07/18/2023 12/26/2023, Weight , BMI 11/02/2023, Weight 234lbs, BMI (-7lbs) 09/13/2023, Weight 241lbs ,BMI 42, (-19lbs) 06/01/2023 Weight 260 lbs, BMI 46 (-13) 04/14/2023: Weight 273 lbs, BMI 48: Patient referred to us from Enoch Zapata PCP Patient works as Retired/[employer] Highest weight: now 273 lbs Lowest weight: 135-140 lbs Goal weight:150-160 lbs NADIA screening, Denies sxs Metabolic workup: Comprehensive labs July 2023 Electrolytes renal function LFTs are stable Total cholesterol 171, LDL 88, HDL 52, triglycerides 156 Has not had an echocardiogram recently. Previous TTE @ [facility] Diet: grAb and go, no portion control/calorie counting Exercise: Currently not tracking steps daily. Utilizes walker, min activity Non-smoker. quit 2017 ETOH use: Denies Examination Category Sub-Category Detail Notes Category Not es General Examination GENERAL APPEARANCE: in no ac [place] distress, well developed, well nourished HEAD: normocephalic, atrau matic EYES: pupils equal, round, reactive to light and accommodation EARS: normal THROAT: clear NECK/THYROID: neck supple, full ra nge of motion, no cervical lymphadenopathy HEART: no murmurs, regular rate and rhythm, S1, S2 normal LUNGS: clear to auscultatio n bilaterally ABDOMEN: normal, bowel sounds present, soft, nontender, nondistended NEUROLOGIC: nonfocal, motor stre ngth normal upper and lower extremities, sensory exam intact SKIN: no suspicious lesion s, warm and dry EXTREMITIES: no clubbing, cyanosi s, or edema ORAL CAVITY: mucosa moist
--- OUTSIDE RECORDS SUMMARY | 2024-02-21 06:45 | XMS_ITS ---
Author Organization [facility] [address] Address [address] [place] [address] Care Team Providers Care Commercial Green Building Architect Name Role Phone LUIS ENRIQUE FRANCO Unavailable [phone] Encounters Encounter Location Date Provider Diagnosis [facility] [address] [address] 02/21/2024 LUIS ENRIQUE FRANCO Plan Of Treatment No Information Progress Notes * JESUS LOPEZ SDOB: [birth year] (70 yo F)Acc No.[id number]:02/21/2024 Patient: Fox COOKKEYONNASUSHMAAN Fox Provider: Alvin FRANCO NP :1955 A ge:68 Y S ex:Female Date:02/21/2024 Address:[address] [place], [place] [phone] Subjective: * Chief Complaints: * * Medical History: Objective: * Vitals: Assessment: Plan: * Treatment: * Images: Billing Information: * Visit Code: * Procedure Codes: * Electronic signature of PRANAY FRANCO on 05/01/2025 at 09:21 AM EDT Sign off status: Pending * Provider: Alvin FRANCO NP Date: 02/21/2024 Generated for Printi ng/Faregulog/eTransmitting on: 05/01/2025 09:21 AM EDT
--- OUTSIDE RECORDS SUMMARY | 2024-05-14 04:45 | XMS_ITS ---
Author Organization [facility] [address] Address [address] [place] [address] Care Team Providers Care Gas Distribution Supervisor Name Role Phone LUIS ENRIQUE FRANCO Unavailable [phone] Encounters Encounter Location Date Provider Diagnosis [facility] [address] [address] 05/14/2024 LUIS ENRIQUE FRANCO Plan Of Treatment No Information Progress Notes * JESUS LOPEZ SDOB: [birth year] (70 yo F)Acc No.[id number]:05/14/2024 Patient: Fox COOKKEYONNASUSHMAAN Fox Provider: Alvin FRANCO NP :1955 A ge:69 Y S ex:Female Date:05/14/2024 Address:[address] [place], [place] [phone] Subjective: * Chief Complaints: * * Medical History: Objective: * Vitals: Assessment: Plan: * Treatment: * Images: Billing Information: * Visit Code: * Procedure Codes: * Electronic signature of PRANAY FRANCO on 05/01/2025 at 09:22 AM EDT Sign off status: Pending * Provider: Alvin FRANCO NP Date: 1 Generated for Printi ng/Faregulog/eTransmitting on: 0 05/01/2025 09:22 AM EDT
--- OUTSIDE RECORDS SUMMARY | 2025-04-30 09:00 | XMS_ITS | Encounter Summary ---
Author Organization [facility] Address [address] [place] [address] Care Team Providers Care Certification Technician Name Role Phone Enoch Zapata MD Primary Care Provider [phone] Reason for Visit * Reason Comments Follow-up Left shoulder pain Encounter Details Date Type Department Care Team ([facility] Contact Info) Description 04/30/2025 9:00 AM EDT Office Visit Orthopedic Surgery - [place] [address] [facility] [address] [place] [address] Carrie Lundberg MD [address] [facility] [address] [place] [address] Arthritis of left shoulder (Primary Dx) Social History Tobacco Use Types Packs/Day Years [...] on file documented as of this encounter Last Filed Vital Signs Vital Sign Reading Time Taken Comments Blood Pressure - - Pulse - - Temperature - - Respiratory Rate - - Oxygen Saturation - - Inhaled Oxygen Concentration - - Weight 105 kg (232 lb) 04/30/2025 8:55 AM EDT Height 160 cm (5' 2.99 ) 04/30/2025 8:55 AM EDT Body Mass Index 41.11 04/30/2025 8:55 AM EDT documented in this encounter Plan of Treatment Upcoming Encounters Date Type Department Care Team (Late Contact Info) Description 05/07/2025 10:00 AM EDT Appointment Radiology Department - [address] [phone] 05/09/2025 9:[address] [facility] CT Scan [address] [place] [phone] 05/09/2025 9:[address] [facility] Ultrasound [address] [place] [phone] 05/20/2025 9:30 AM EDT Consult Orthopedic Surgery - [place] [address] [place] [address] Casper Weems MD [address] [place] [address] 10/08/2025 9:45 AM EST Office Visit Adult Medicine [facility] - [address] [phone] Enoch Zapata MD [address] [place] [address] Pending Results Name Type Priority Associated Diagnoses Date /Time XR Shoulder 2+ Views Left Imaging Routine Arthritis of left shoulder 04/30/2025 10:33 AM EDT Scheduled Orders Name Type Priority Associated Diagnoses Orde r Schedule XR Shoulder 2+ Views Left Imaging Routine Arthritis of left shoulder Expected: 04/30/2025, Expires: 04/30/2026 documented as of this encounter Visit Diagnoses Diagnosis Arthritis of left shoulder- Primary Encounter for screening mammogram for breast cancer documented in this encounter Additional Health Concerns Assessment Noted Time PHQ-9 Depression Total Score: 4 09/07/19 25 11:45 AM EST A fall risk assessment has been complete d for the patient 09/07/2024 11:44 AM EST documented as of this encounter Care Teams Certification Technician Relationship Specialty Start Date End Date Enoch Zapata MD [address] [place] [address] PCP - General Internal Medicine 10/12/21 documented as of this encounter
--- NOTE | 2025-05-01 08:35 | MHC.OFFVIS ---
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 I examined her MRI which was uploaded in our system and there are Modic type 2 changes starting from L3 going all the way down to S1. We discussed again today possibility of treating her pain with prolonged sitting by applying BVN RFA L3, L4, L5, S1. Patient agreed to go for the procedure. As of the pain in her left hip with radiation down to the left knee it is related to enthesopathy of the iliotibial band. I recommended her OTC lidocaine patch and I will send her to the physical therapy at [facility] physical therapy. She also complain on pain in the left shoulder. Physical exam still is below. She reported to intra-articular shoulder injections being performed a orthopedic surgery office. Those procedures were image guided. First procedure resulted in moderate pain improvement, 2nd procedure did not improve pain at all. I offered her pain management procedure: Diagnostic suprascapular left nerve block without sedation. Patient agreed to try. We will discuss possibility of treatment of her pain with sprint PNS once and if the diagnostic nerve block will be successful. Prior: Severe pain in the neck pain in the lower back pain in the left groin. She reports pain with prolonged sitting exacerbation and bending over exacerbation. She had multiple images of her lumbar spine 1 of the MRIs from 2022 she brought with herself. The report is from [facility]. On that MRI there is demonstration of the Modic type 1 changes at L3-L4 and Modic type 3 endplate changes at L2-L3. However patient states that the risk more fresh MRI available at [place]. I recommended the patient to bring us the report and the disc of that MRI. She was subject of multiple physical therapy with [facility] physical therapy office none of them were helpful for her. She tried 10s unit it was not helpful for her. She was under care of [facility] pain management received multiple nerve blocks and epidural steroid injections and even attempted spinal cord stimulator trial. According to the patient none was helpful for the patient's pain. Review of Systems Const All systems reviewed & are unremarkable except as noted in HPI and below ENT Reports Normal hearing present Neuro Reports Normal hearing present, Denies Abnormal speech present, Denies confusion and Denies Sensory deficit (Neuro) Psych Denies confusion Physical Exam Vital Signs: Last Vital Signs Pulse 84 05/01/25 08:36 Resp 18 05/01/25 08:36 BP 146/98 H 05/01/25 08:36 Pulse Ox 96 05/01/25 08:36 Oxygen Delivery Method Room Air 05/01/25 08:36 Const General: no acute distress; No confusion Nutritional Appearance: obese morbidly obese Orientation/consciousness: patient oriented x3 and No confusion Eyes General: appearance normal, both eyes and all related structures Pupils: Equal, round and reactive pupils present EOM: EOMs intact bilaterally Neck Neck: Yes full ROM Chest Chest palpation & inspection: normal inspection of the chest Resp Effort & Inspection: normal respiratory effort, able to speak in complete sentences, normal respiratory pattern, no audible wheezes and no cough Cardio Jugular venous distension: no JVD GI Inspection: Yes normal to inspection Back/Spine/Pelvis Other: There is very well-healed thin scar in the projection of the L4-5 lumbar vertebras, there is no redness no pathological discharge. There is no tenderness on palpation in the projection of the scar. Neuro General: patient oriented x3, gait normal and No confusion Cranial nerves: Yes CN's II-XII intact bilaterally, Yes Equal, round and reactive pupils present, Yes Normal hearing present and Yes Ability to bilaterally elevate shoulders present Speech: No Abnormal speech present Gait exam (Neuro): Normal gait present Motor exam (neuro): 5/5 motor strength present throughout Sensory Exam: No Sensory deficit (Neuro) Extrem Other: Severe tenderness on palpation in the projection of the left shoulder. Severe limited range of motion of the left shoulder. General: No pedal edema Psych Speech and movement: Normal speech and movement present Affect: normal affect Attitude: cooperative Thought process: Normal thought process present Thought content: Normal thought content present Insight: Good insight present (Psych) Judgement: Good judgement present (Psych) Results Reviewed Results Reviewed: XR HIP, LEFT CLINICAL INFORMATION: M25.552 - Pain in left hip COMPARISON: None available. TECHNIQUE: Two views of the left hip. FINDINGS: Left hip joint space is preserved. Chronic bony exostoses are evident involving the greater trochanter, likely enthesophytes. Mild degenerative changes are present in the left SI joint and pubic symphysis joint with sclerosis and mild narrowing. IMPRESSION: Mild degenerative changes of left SI joint and pubic symphysis joint. Left hip joint is preserved. I personally examined the MRI available in our system as a copy images from elsewhere and she has L4-5 auto fusion of the 2 vertebral bodies she has Modic type 2 changes at L3-L4 and L5-S1 intervals. Assessment & Plan Assessment & Plan (1) Left hip pain: Code(s): M25.552 - Pain in left hip Category: Medical (2) Postlaminectomy syndrome: Code(s): M96.1 - Postlaminectomy syndrome, not elsewhere classified Category: Medical (3) Chronic pain syndrome: Code(s): G89.4 - Chronic pain syndrome Category: Medical (4) Vertebrogenic low back pain: Code(s): M54.51 - Vertebrogenic low back pain Category: Medical (5) Left shoulder pain: Code(s): M25.512 - Pain in left shoulder Category: Medical (6) Osteoarthritis of left shoulder: Code(s): M19.012 - Primary osteoarthritis, left shoulder Category: Medical (7) Enthesopathy of hip region: Code(s): M76.899 - Other specified enthesopathies of unspecified lower limb, excluding foot Category: Medical (8) Iliotibial band syndrome affecting left lower leg: Code(s): M76.32 - Iliotibial band syndrome, left leg Category: Medical Plan We discussed today again performance of the intercept procedure for L3-L4 , L5 and S1 levels for this patient. I explained to her that some of the pain could be improved by this procedure. I will schedule this patient for the BVN L3, L4, L5 and S1. She has auto fusion of L4 and L5, however she has L3 and L4 and she has L5 and S1 Modic type changes. She also has L1 and L2 Modic type changes but those are too close to the spinal cord to be addressed by the treatment of BVN RFA. I will schedule her for diagnostic left supra scapular nerve block in an attempt to treat her pain in the left shoulder. As of her enthesopathy in the left hip I will send her for physical therapy with this diagnosis. I also will recommend her to obtain OTC lidocaine and applied to the area of the enthesopathy. See description of the x-ray as above. Orders: Orders PT Evaluation and Treatment Today M76.32 - Iliotibial band syndrome, left leg, M76.899 - Other specified enthesopathies of unspecified lower limb, excluding foot Patient Instructions: I here by testify that I spent 30 minutes in conversation with this patient as well as evaluating her prior records and prior diagnostic studies as well as planning her care and organizing this note. Coding Level of Care Code Est Pt Level 4 (78681) Diagnoses Left hip pain M25.552 Postlaminectomy syndrome M96.1 Chronic pain syndrome G89.4 Vertebrogenic low back pain M54.51 Left shoulder pain M25.512 Osteoarthritis of left shoulder M19.012 Enthesopathy of hip region M76.899 Iliotibial band syndrome affecting left lower leg M76.32
[2025-05-01 08:36] VITALS: BP 146/98; PULSE 84; RESP 18; O2SAT 96
--- OUTSIDE RECORDS SUMMARY | 2025-05-01 09:21 | XMS_ITS | Patient Health Record ---
[facility] [address] Address [address] [place] [address] Care Team Providers Care Production Staff Worker Name Role Phone LUIS ENRIQUE FRANCO Unavailable [phone] Allergies Allergen (clinical drug ingredient) Drug/Non Drug [...] Problem Obesity due to exces s calories (806571041) Other obesity due to excess calories (E66.09) Active confirmed Problem Hyperlipidemia (54417214) Hyperlipidemia , unspecified (E78.5) Active confirmed Problem Chronic pain syndrom e (724993864) Chronic pain syndrome (G89.4) Active confirmed Problem Essential hypertensi on (45487268) Essential (primary) hypertension (I10) Active confirmed Problem Fibromyalgia (697286539) Fibromyalgia (M79.7) Active confirmed Problem Body mass index 40+ - severely obese (942340111) Body mass index (BMI) 45.0-49.9, adult (Z68.42) Active confirmed Problem Pure hypercholesterolemia (765207447) Pure hypercholester olemia, unspecified (E78.00) Active confirmed Problem Body mass index 35.0 0 to 39.99 (816857915572111) Body mass index [BMI] 36.0-36.9, adult (Z68.36) Active confirmed Problem Body mass index 40+ - severely obese (695112030) BMI 45.0-49.9, adult (Z68.42) Active confirmed Problem Morbid obesity (763261209) Morbid obesity due to excess calories (E66.01) Active confirmed Encounters Encounter Location Date Provider Diagnosis [facility] [address] [address] 05/07/2024 LUIS ENRIQUE FARNCO [facility] [address] [address] 05/09/2024 LUIS ENRIQUE FRANCO Plan Of Treatment No Information Insurance Providers Payer Name Payer Address Payer Phone Subscriber Number Group Number Insured Name Patient Relationship to Insured Coverage Start Date Coverage End Date [employer] Medicare Value PPO [address] [place] [address] [id number] JESUS LOPEZ Self - patient is the insured Medical (General) History Medical History History ICD Code hypertension hypercholesterolemia restless leg syndrome depression insomnia Surgical History Surgery Date(Month/Year) right knee replacement left knee replacement
--- OUTSIDE RECORDS SUMMARY | 2025-05-01 09:21 | XMS_ITS | Encounter Summary ---
Author Organization [facility] Address [address] [place] [address] Care Team Providers Care Scouts Name Role Phone Enoch Zapata MD Primary Care Provider [phone] Reason for Visit * Reason Onset Date Comments Results 04/11/2025 Encounter Details Date Type Department Care Team (Late st Contact Info) Description 04/11/2025 Telephone Adult Medicine [address] [phone] Enoch Zapata MD [address] [place] [address] Social History Tobacco Use Types Packs/Day Years [...] Care Team (Late st Contact Info) Description 05/07/2025 10:00 AM EDT Appointment Radiology Department - [address] [address] 05/09/2025 9:15 AM EDT Appointment [facility] CT Scan [address] [place] [address] 05/09/2025 9:30 AM EDT Appointment [facility] Ultrasound [address] [place] [phone] 05/20/2025 9:30 AM EDT Consult Orthopedic Surgery - [place] [address] [place] [address] Casper Weems MD [address] [place] [address] 10/08/2025 9:45 AM EST Office Visit Adult Medicine [address] [phone] Enoch Zapata MD [address] [place] [address] documented as of this encounter Visit Diagnoses Not on filedocumented in this encounter Additional Health Concerns Assessment Noted Time PHQ-9 Depression Total Score: 4 09/07/19 25 11:45 AM EST A fall risk assessment has been complete d for the patient 09/07/2024 11:44 AM EST documented as of this encounter Care Teams Scouts Relationship Specialty Start Date End Date Enoch Zapata MD [address] [place] [address] PCP - General Internal Medicine 10/12/21 documented as of this encounter
--- OUTSIDE RECORDS SUMMARY | 2025-05-01 09:22 | XMS_ITS | Clinical Summary ---
Author Organization [place] [address] [facility]i Formerly [facility] Address [address] [place], [place] [address], [place] [address] Phone Care Team Providers Care Venereal Disease Investigator Name Role Phone Enoch Zapata MD Primary Care Provider [phone] Allergies Active Allergy Reactions Criticality Noted Date [...] mg total) by mouth at bedtime. Active propranoloL (INDERAL) 20 mg tablet Take [...] at bedtime. 90 tablet 1 025 Active pregabalin (LYRICA) 100 mg capsuleIndication s:Other polyneuropathy Take 1 capsule (100 mg total) by mouth 3 (three) times a day. Max Daily Amount: 300 mg 60 capsule 5 025 2025 Active simvastatin (ZOCOR) 20 mg tablet TAKE 1 TABLET BY MOUTH EVERYDAY AT BEDTIME 90 tablet 1 025 Active ondansetron (ZOFRAN) 4 mg tabletIndications :Nausea Take 1-2 tablets (4-8 mg total) by mouth every 8 (eight) hours if needed for nausea. 60 tablet 5 025 Active nystatin (MYCOSTATIN) 100,000 unit/gram powder Apply topically 1 (one) time each day. 1 layer to areas or skin redness/rash of skin folds 15 g 5 025 Active nystatin (MYCOSTATIN) 100,000 unit/gram powder Apply topically. 1 layer to areas or skin redness/rash of skin folds 023 2024 Discontinued(R eorder) simvastatin (ZOCOR) 20 mg tablet TAKE 1 TABLET BY MOUTH EVERYDAY AT BEDTIME 90 tablet 1 025 2024 Discontinued ondansetron (ZOFRAN) 4 mg tabletIndications :Nausea Take 1-2 tablets (4-8 mg total) by mouth every 8 (eight) hours if needed for nausea. 60 tablet 025 2024 Discontinued(R eorder) Active Problems Problem Noted Date Diagnosed Date Cocaine abuse in remission ([facility] V24, [facility] V28) 10/31/2024 Panic disorder 10/31/2024 Sacroiliac joint dysfunction of both sides 10/31 Insomnia 10/31/2024 Infrarenal abdominal aortic aneurysm (AAA) without rupture ([facility] V24) 10/31/2024 Overview (10/31/2024): 10/01/24: Elevated velocities [...] with renal ultrasound prior Ascending aorta dilation ([facility] V24) 8 Overview (10/31/2024): 10/31/24: Ascending aorta is dilated (4.0 cm); Sinus of Valsalva is dilated (3.2 cm). Echo 10/2018 - 4cm dilation Echo 10/2017 - Ascending 4cm and transverse 3.2cm aorta dilation Severe obesity (BMI 35.0-39. 9) with comorbidity (CMS/HCC V24, CMS/HCC V28) 06/27/2017 Vitamin D deficiency 08/18/2016 Right shoulder pain 05/03/2016 Overview (06/17/2024): [facility] - 04/20/16 - right shoulder injection, [...] Overview (06/17/2024): Dr. Salazar - Psychiatrist - [facility] Back pain 02/20/2010 Overview (06/17/2024): [facility] - [...] Encounters Date Type Department Care Team Description 04/30/2025 9:00 AM EDT Office Visit Orthopedic Surgery [facility] 160 [address] [facility] [address] [place] [phone] Carrie Lundberg MD Arthritis of left shoulder (Primary Dx) 04/30/2025 Telephone Orthopedic [facility] 160 [address] [facility] [address] [place] [phone] Carrie Lundberg MD 04/18/2025 9:30 AM EDT Office Visit Vascular Surgery [facility] 300 [facility] [address] [place] [address] Jessy Hutchins MD Swelling of left lower extremity (Primary Dx); Left leg pain; Aortic ectasia (CMS/[facility] V24) 04/16/2025 7:00 AM EDT - 04/16/2025 11:59 PM EDT Hospital Encounter [facility] Nuclear Medicine [address] [place] [phone] Chronic nausea Discharge Disposition: Home or Self Care 04/11/2025 Telephone Adult Medicine [address] [phone] Enoch Zapata MD 04/10/2025 2:00 PM EDT Office Visit Adult Medicine [address] [phone] Joe Burton PA Urinary frequency (Primary Dx); Prediabetes 04/04/2025 Telephone Adult Medicine [address] [phone] Enoch Zapata MD 03/19/2025 11:30 AM EDT Office Visit Adult Medicine [facility] [address] [place] [address] Enoch Zapata MD Primary hypertension (Primary Dx); Nausea; Other polyneuropathy; Prediabetes; Pure hypercholesterolemia 03/18/2025 7:45 AM EDT Ancillary Procedure [facility] [address] [facility] [address] [place] [address] Swelling of left lower extremity; Left leg pain 03/08/2025 Telephone Lung Screening Program - [place] [address] [facility] [address] [place] [address] Pia New [place] 02/22/2025 11:15 AM EDT Office Visit Orthopedic Surgery - [place] 160 [address] [facility] [address] [place] [address] Carrie Lundberg MD Arthritis of right shoulder (Primary Dx) 02/22/2025 11:00 AM EDT Ancillary Procedure Orthopedic Surgery - [place] 160 175 [facility] [address] [place] [address] 02/12/2025 8:20 AM EDT Consult Gastroenterology - [place] [address] [facility] [address] [place] [phone] Jihan Cronin NP Chronic nausea (Primary Dx); [...] duodenal ulcers UPPER GASTROINTESTINAL ENDOSCOPY 05/16/2018 PROCEDURE: [place] UPPER GI ENDOSCOPY PERFORMED; COMMENT: complete resolution [...] obesity wit h BMI of 40.0-44.9, adult ([facility]) Family History Medical History Relation Name Comments Heart attack Father Breast cancer Mother Breast cancer Other mat cousin Other: ca brain Son 1 Colon cancer Neg Hx Ovarian cancer Neg Hx Relation Name Status Comments Father (Age 57) [place] at age 57 Mother (Age 86) VA Other mat cousin Son 1 Son 2 [...] Mass Index 41.11 04/30/2025 8:55 AM EDT Plan of Treatment Upcoming Encounters Date Type Department Care Team (Late st Contact Info) Description 05/07/2025 10:00 AM EDT Appointment Radiology Department - [address] [phone] 05/09/2025 9:15 AM EDT Appointment [facility] CT Scan [address] [place] [address] 05/09/2025 9:30 AM EDT Appointment [facility] Ultrasound [address] [place] [address] 05/20/2025 9:30 AM EDT Consult Orthopedic Surgery - [place] [address] [place] [phone] Casper Weems MD [address] [place] [phone] 10/08/2025 9:45 AM EST Office Visit Adult Medicine [facility] - [address] [phone] Enoch Zapata MD [address] [place] [address] Health Maintenance Due Date Last Done Comments [...] COLONOSCOPY REPORT Routine 02/28/2025 4:01 PM EDT [place] ARTHROCENTESIS/ASPIR ATION/INJECTION MAJOR JOINT/BURSA W/O U/S GUIDANCE [...] 12/04/2018 5:36 PM EDT Asymptomatic menopausal state HM HEPATITIS C SCREENING Routine 06/11/2013 from Last [...] Signed Date: 04/17/2025 12:58 ET Workstation ID: [id number] Transcribed By: Self Edit Transcribed Date: 04/17/2025 [...] Signed Date: 04/17/2025 12:58 ET Workstation ID: [id number] Transcribed By: Self Edit Transcribed Date: 04/17/2025 12:57 ET Jihan Cronin NP IMG NM PROCEDURES Final Result * Gonzalez urine culture tube (04/10/2025 3:01 PM EDT) [facility] Extra Tube Hold for add-ons. 04/10/2025 5:01 PM EDT [facility] Comment:Auto resulted. Urine Urine specimen obtained by clean catch procedure / Unknown Non-blood Collection / Unknown 04/10/2025 3:01 PM EDT 04/10/2025 3:01 PM EDT Joe JUAREZ LAB URINE ORDERABLES Fi nal Result [facility] [address] [place] [address], [place] [phone] * (ABNORMAL) Urinalysis with reflex microscopic and culture (04/10/2025 2:24 PM EDT) [facility] Specific [place] Urine 1.007 1.003 - 1.030 LAB URINALYSIS - AUTOMATED METHOD 04/10/2025 5:10 PM [facility] pH, Urine 6.0 5.0 - 8.0 pH LAB URINALYSIS - AUTOMATED METHOD 04/10/2025 5:10 PM [facility] Leukocytes, Urine Small(A) Negative LAB URINALYSIS - AUTOMATED METHOD 04/10/2025 5:10 PM [facility] Nitrite, Urine Negative Negative LAB URINALYSIS - AUTOMATED METHOD 04/10/2025 5:10 PM [facility] Protein, Urine Negative <=Trace mg/dL LAB URINALYSIS - AUTOMATED METHOD 04/10/2025 5:10 PM [facility] Glucose, Urine Negative Negative mg/dL LAB URINALYSIS - AUTOMATED METHOD 04/10/2025 5:10 PM [facility] Ketones, Urine Negative Negative mg/dL LAB URINALYSIS - AUTOMATED METHOD 04/10/2025 5:10 PM [facility] Urobilinogen, Urine 0.2 0.2 - 1.0 mg/dL LAB URINALYSIS - AUTOMATED METHOD 04/10/2025 5:10 PM EDT [facility] Bilirubin, Urine Negative Negative LAB URINALYSIS - AUTOMATED METHOD 04/10/2025 5:10 PM EDT [facility] Blood, Urine Negative Negative LAB URINALYSIS - AUTOMATED METHOD 04/10/2025 5:10 PM EDT [facility] RBC, Urine 1.3 0 - 4 /HPF LAB URINALYSIS - AUTOMATED METHOD 04/10/2025 5:10 PM EDT [facility] WBC, Urine 0.6 0 - 4 /HPF LAB URINALYSIS - AUTOMATED METHOD 04/10/2025 5:10 PM [facility] Squamous Epithelial, Urine 34 0 - 60 /LPF LAB URINALYSIS - AUTOMATED METHOD 04/10/2025 5:10 PM EDT [facility] Bacteria, Urine Negative Negative /HPF LAB URINALYSIS - AUTOMATED METHOD 04/10/2025 5:10 PM EDT [facility] Hyaline Casts, Urine 1.2 0 - 3 /LPF LAB URINALYSIS - AUTOMATED METHOD 04/10/2025 5:10 PM [facility] Urine Urine specimen obtained by clean catch procedure / Unknown Non-blood Collection / Unknown 04/10/2025 2:24 PM EDT 04/10/2025 2:28 PM EDT us Joe JUAREZ LAB URINE ORDERABLES Fi nal Result [facility] [address] [place] [address], * Culture urine (04/10/2025 2:24 PM EDT) Culture, Urine <10,000 cfu/mL Mixed bacterial tonja 04/11/2025 10:46 AM EDT [facility] Urine Urine specimen obtained by clean catch procedure / Unknown Non-blood Collection / Unknown 04/10/2025 2:24 PM EDT 04/10/2025 5:10 PM EDT Joe JUAREZ LAB MICROBIOLOGY - GENE RAL ORDERABLES Final Result Performing Organization Address [facility]/ZIP Co de Phone Number [facility] [address] [place] [address], [place] [phone] * Hemoglobin A1c (03/19/2025 12:11 PM EDT) Hemoglobin A1C 5.7 <6.5 % LAB CHEMISTRY METHOD 03/19/2025 6:23 PM EDT [facility] Mean Bld Glu Estim. 117 mg/dL LAB CHEMISTRY METHOD 03/19/2025 6:23 PM EDT [facility] Blood Venous blood specimen / Unknown Venipuncture / Unknown 03/19/2025 12:11 PM EDT 03/19/2025 12:11 PM EDT us Enoch Zapata MD LAB BLOOD ORDERABLES Final Resu lt Performing Organization Address City/[facility]/ZIP Co de Phone Number [facility] [address] [place] [address], [place] [phone] * Vascular US duplex lower extremity venous [...] trendelenburg. Left saphenopopliteal junction was not identified. Packing And Wrapping Supervisor Details A gonzalez scale, color and doppler analysis ultrasound was performed. During the study longitudinal and transverse views were obtained. Continuous wave doppler and pulsed wave doppler was performed. Overall the study quality was good. us Raza Kingston MD CV VASCULAR PROCEDURES Final Re sult * External Endoscopy (02/28/2025 4:02 PM EDT) Only the most recent of2 resultswithin the time period is included. Anatomical Region Laterality Modality Endoscopy Historical Provider GI~PROCEDURE ORDERABLES F inal Result * External Colonoscopy Report (02/28/2025 4:01 PM EDT) Anatomical Region Laterality Modality Endoscopy Historical Provider GI~PROCEDURE ORDERABLES F inal Result * [place] ARTHROCENTESIS/ASPIRATION/INJECTION MAJOR JOINT/BURSA W/O U/S GUIDANCE (02/22/2025 [...] patients medical record. us Carrie Lundberg MD [facility] US PROCEDURES Final Result * (ABNORMAL) Lipid panel with reflex to direct LDL (12/18/2024 3:48 PM EDT) [facility] Cholesterol 171 0 - 200 mg/dL LAB CHEMISTRY METHOD 12/18/2024 6:59 PM EDT [facility] Triglycerides 198(H) 0 - 150 mg/dL LAB CHEMISTRY METHOD 12/18/2024 6:59 PM EDT [facility] HDL 55 >=40 mg/dL LAB CHEMISTRY METHOD 12/18/2024 6:59 PM EDT [facility] LDL Calculated 76 0 - 100 mg/dL LAB CHEMISTRY METHOD 12/18/2024 6:59 PM EDT [facility] VLDL Cholesterol Ricardo 39.6 mg/dL LAB CHEMISTRY METHOD 12/18/2024 6:59 PM EDT [facility] Non HDL Chol. (LDL+VLDL) 116 <145 mg/dL LAB CHEMISTRY METHOD 12/18/2024 6:59 PM EDT [facility] Chol/HDL Ratio 3.1 0.0 - 4.4 LAB CHEMISTRY METHOD 12/18/2024 6:59 PM EDT [facility] Blood Venous blood specimen / Unknown Venipuncture / Unknown 12/18/2024 3:48 PM EDT 12/18/2024 3:48 PM EDT us Enoch Zapata MD LAB BLOOD ORDERABLES Final Resu lt [facility] [address] [place] [address], * (ABNORMAL) Comprehensive metabolic panel (12/18/2024 3:48 PM EDT) Sodium 139 133 - 145 mmol/L LAB CHEMISTRY METHOD 12/18/2024 6:57 PM T [facility] Potassium 4.1 3.5 - 5.5 mmol/L LAB CHEMISTRY METHOD 12/18/2024 6:57 PM EDT [facility] Chloride 108 96 - 110 mmol/L LAB CHEMISTRY METHOD 12/18/2024 6:57 PM T [facility] CO2 25 21 - 32 mmol/L LAB CHEMISTRY METHOD 12/18/2024 6:57 PM EDT [facility] Anion Gap 6 3 - [...] g/dL LAB CHEMISTRY METHOD 12/18/2024 6:57 PM [facility] Albumin 3.8 3.2 - 5.0 g/dL LAB CHEMISTRY METHOD 12/18/2024 6:57 PM [facility] Total Bilirubin 0.5 0.0 - 1.4 mg/dL LAB CHEMISTRY METHOD 12/18/2024 6:57 PM EDT [facility] Blood Venous blood specimen / Unknown Venipuncture / Unknown 12/18/2024 3:48 PM EDT 12/18/2024 3:48 PM EDT us Enoch Zapata MD LAB BLOOD ORDERABLES Final Resu lt [facility] ([facility] [address] [place] [address], * DIAGNOSTIC MAMMOGRAPHY INCLUDING CAD BILATERAL (04/20/2024 [...] Breast cancer risk category Low (<15%) Location: [facility], [address] [place] [address], [address], [phone] Procedure Note Ligia Smith MD - 05/23/2024 [...] right breast has been present and unchanged [id number]. Tiny adjacent nodule with associated biopsy clip [...] Breast cancer risk category Low (<15%) Location: [facility], [address] [place] [address], [address], [phone] us Enoch Zapata MD IMG BI PROCEDURES Final Result * KAYDEN DEXA AXIAL SKELETON (12/04/2018 5:36 PM EDT) Anatomical Region Laterality Modality Mammography 12/04/2018 9:49 AM EDT Narrative 12/04/2018 5:36 PM EDT [facility] Diagnostic Imaging Department [address] [place] [address] Patient: ELMIRA MAURICIO /Age/Sex: 1955 - 63 - F Unit#: [id number] Location/Status: SPDIMAM/REG CLI Mnemonic/Ordering Site: MAMDEXAAX/SPMAM Ordering Physician: TEREZA FERNANDEZ MD, PHD Kayden Dexa Axial Skeleton - 12/04/18 - 7435 History: Low estrogen state due to menopause. Tobacco use. Back pain. Findings: Bone densitometry is performed utilizing dual energy x-ray absorptiometry (DXA) in the OnShiftigWiseStamp unit. The lumbar spine and proximal femora [...] 0.1 percent. IMPRESSION: Normal bone mineral density. [id number] Dictating Physician: EARNESTINE SAMPSON MD Electronically Signed by: EARNESTINE SAMPSON MD Dic Date/Time: 12/04/181732 Sign date/Time: 12/04/181735 Procedure Note Earnestine Sampson MD - 07/27/2022 [facility] Diagnostic Imaging Department [address] [place] [address] Patient: SUSHMA MAURICIOALEXANDR Braxton /Age/Sex: 1955 - 63 - F Unit#: [id number] Location/Status: SPDIMAM/REG CLI Mnemonic/Ordering Site: MAMDEXAAX/SPMAM Ordering Physician: TEREZA FERNANDEZ MD, PHD [facility] Dexa Axial Skeleton - 12/04/18 - 1045 History: Low estrogen state due to menopause. Tobacco use. Back pain. Findings: Bone densitometry is performed utilizing dual energy x-ray absorptiometry(DXA) in the OnShiftigWiseStamp unit. The lumbar spine and proximal femora [...] 0.1 percent. IMPRESSION: Normal bone mineral density. [id number] Dictating Physician: EARNESTINE SAMPSON MD Electronically Signed by: EARNESTINE SAMPSON MD Dic Date/Time: 12/04/18 173 Sign date/Time: 12/04/18 173 us Tereza Fernandez MD IMG BI PROCEDURES Final R esult * Hepatitis C Screening (06/11/2013) [facility] Hepatitis C Screening abstracted us Historical Provider HEALTH MAINTENANCE Final Result from Last 3 Months or Most Recently Relevant to Health Maintenance Insurance [facility] MEDICARE Member Subscriber Plan / Payer (Ef fective 2024-Present) Name:Elmira Mauricio Relation to Subscriber:Self Name:Elmira Mauricio Payer ID:[id number] Group ID:[id number] Type:Not on file Address: [address] [place] [address] MEDICAID - [place] Advance Directives Documents on File Type Date Recorded Patient Spot Welder Body Assembly Expl anation Health Care Decision (hx) 07/12/2023 HE ALTH CARE PROXY Health Care Decision (hx) 07/12/2023 HE ALTH CARE PROXY Health Care Decision (hx) 07/12/2023 HE ALTH CARE PROXY Health Care Decision (hx) 07/12/2023 HE ALTH CARE PROXY Care Teams Venereal Disease Investigator Relationship Specialty Start Date End Date Enoch Zapata MD [address] [place] [phone] PCP - General Internal Medicine 10/12/21
--- OUTSIDE RECORDS SUMMARY | 2025-05-01 09:22 | XMS_ITS | Encounter Summary ---
Author Organization [facility] Address [address] [place] [address] Care Team Providers Care Day Habilitation Specialist Name Role Phone Enoch Zapata MD Primary Care Provider [phone] Encounter Details Date Type Department Care Team ([facility] Contact Info) Description 04/30/2025 Telephone Orthopedic Surgery - [place] [address] [phone] Carrie Lundberg MD [address] [facility] 160 [place] [address] Social History Tobacco Use Types Packs/Day Years [...] as of this encounter Progress Notes * Sally Gonzales MA - 04/30/2025 2:21 PM EDT The patient was called and informed. Appt scheduled with Dr. Martines to discuss options scheduled for 05/20/25. * Carrie Lundberg MD - 04/30/2025 1:09 PM EDT Let her know her arthritis has progressed to bone on bone. I would recommend she meet with Dr martines to discuss shoulder replacement. * Deonna Sanchez Shannon - 04/30/2025 10:29 AM EDT Please reach out to pt to discuss xray results. She will decide on an injection after your conversation [phone] documented in this encounter Plan of Treatment Upcoming Encounters Date Type Department Care Team (Late st Contact Info) Description 05/07/2025 10:00 AM EDT Appointment Radiology Department - [address] [phone] 05/09/2025 9:15 AM EDT Appointment [facility] CT Scan [address] [place] [address] 05/09/2025 9:30 AM EDT Appointment [facility] Ultrasound [address] [place] [address] 05/20/2025 9:30 AM EDT Consult Orthopedic Surgery - [place] [address] [place] [phone] Casper Martines MD [address] [place] [phone] 10/08/2025 9:45 AM EST Office Visit Adult Medicine [facility] - [address] [phone] Enoch Zapata MD [address] [place] [address] documented as of this encounter Visit Diagnoses Not on filedocumented in this encounter Additional Health Concerns Assessment Noted Time PHQ-9 Depression Total Score: 4 09/07/19 25 11:45 AM EST A fall risk assessment has been complete d for the patient 09/07/2024 11:44 AM EST documented as of this encounter Care Teams Day Habilitation Specialist Relationship Specialty Start Date End Date Enoch Zapata MD [address] [place] [phone] PCP - General Internal Medicine 10/12/21 documented as of this encounter
== END 2025-05-01 09:04 | disposition home or self-care (01) ==
LOC: HO.PMC 08:29
PROVIDERS: PCP Internal Medicine; Visit Provider Anesthesiology
DX: M25.552 Pain in left hip (principal); M96.1 Postlaminectomy syndrome, not elsewhere classified; G89.4 Chronic pain syndrome; M54.51 Vertebrogenic low back pain; M25.512 Pain in left shoulder; M19.012 Primary osteoarthritis, left shoulder; M76.899 Other specified enthesopathies of unspecified lower limb, excluding foot; M76.32 Iliotibial band syndrome, left leg
CPT/HCPCS: 99214

== ENCOUNTER → 2025-05-01 08:29 | Outpatient (BNVA) | payer OTHER, SELFPAY | PROVIDERS: PCP Internal Medicine; Visit Provider Anesthesiology | DX: M25.552 Pain in left hip (principal); M25.562 Pain in left knee; M25.512 Pain in left shoulder; G89.4 Chronic pain syndrome; M19.012 Primary osteoarthritis, left shoulder; M76.32 Iliotibial band syndrome, left leg; M96.1 Postlaminectomy syndrome, not elsewhere classified | CPT/HCPCS: 99212 ==

== ENCOUNTER 2025-05-08 07:51 | Outpatient (AMB) | payer OTHER, SELFPAY ==
--- OUTSIDE RECORDS SUMMARY | 2023-12-26 05:30 | XMS_ITS ---
Author Organization [facility] [address] Address [address] [place] [address] Care Team Providers Care Justice Professor Name Role Phone LISALUIS ENRIQUE JOVEL Unavailable [phone] Medications Medication SIG (Take, Route, Fr equency, Duration) Notes Start Date End Date Status Mounjaro 2.5 MG/0.5ML 2.5mg Subcutaneous weekly; Duration: 30 days Active Encounters Encounter Location Date Provider Diagnosis [facility] [address] [address] 12/26/2023 LUIS ENRIQUE FRANCO Essential (primary) hypertension [...] minimum of 6 months The most recent [place] Association of clinical endocrinologists and [place] [employer] of endocrinology guidelines recommend patients who [...] track activity level. Consider using apps like DreamFace Interactive, myfitnesspal, lose it, stick as needed for self-monitoring and weight management. Consider group exercises. Consider hiring a sharepoint trainer. Regular exercise is mcginnis to sustainable [...] counseling and psychiatry and Dr Tejeda at [facility]. We would like to cover regular topics [...] software and direct typing Please excuse inadvertent electronic service technician or typing errors, or uncorrected word substitutions Although every attempt has been made by the provider to proofread this document, occasional misspellings and typographical errors may still be present Due to the previous pandemic, and the use of personal protective equipment (PPE) This may decrease voice recognition accuracy Inadvertent electronic service technician errors may occur 12/26/2023 Pure hypercholesterol emia, [...] minimum of 6 months The most recent [place] Association of clinical endocrinologists and [place] College of endocrinology guidelines recommend patients who [...] track activity level. Consider using apps like Konnectsise, myfitnesspal, lose it, stick as needed for self-monitoring and weight management. Consider group exercises. Consider hiring a sharepoint trainer. Regular exercise is mcginnis to sustainable [...] counseling and psychiatry and Dr Tejeda at [facility]. We would like to cover regular topics [...] software and direct typing Please excuse inadvertent electronic service technician or typing errors, or uncorrected word substitutions Although every attempt has been made by the provider to proofread this document, occasional misspellings and typographical errors may still be present Due to the previous pandemic, and the use of personal protective equipment (PPE) This may decrease voice recognition accuracy Inadvertent electronic service technician errors may occur 12/26/2023 Morbid obesity due [...] minimum of 6 months The most recent [place] Association of clinical endocrinologists and [place] [employer] of endocrinology guidelines recommend patients who [...] track activity level. Consider using apps like DreamFace Interactive, Pointpal, lose it, stick as needed for self-monitoring and weight management. Consider group exercises. Consider hiring a sharepoint trainer. Regular exercise is mcginnis to sustainable [...] counseling and psychiatry and Dr Tejeda at [facility]. We would like to cover regular topics [...] software and direct typing Please excuse inadvertent electronic service technician or typing errors, or uncorrected word substitutions Although every attempt has been made by the provider to proofread this document, occasional misspellings and typographical errors may still be present Due to the previous pandemic, and the use of personal protective equipment (PPE) This may decrease voice recognition accuracy Inadvertent electronic service technician errors may occur 12/26/2023 Chronic pain syndrome [...] minimum of 6 months The most recent [place] Association of clinical endocrinologists and [place] [employer] of endocrinology guidelines recommend patients who [...] track activity level. Consider using apps like Dream[employer] Interactive, Pointpal, lose it, stick as needed for self-monitoring and weight management. Consider group exercises. Consider hiring a sharepoint trainer. Regular exercise is mcginnis to sustainable [...] counseling and psychiatry and Dr Tejeda at [facility]. We would like to cover regular topics [...] software and direct typing Please excuse inadvertent electronic service technician or typing errors, or uncorrected word substitutions Although every attempt has been made by the provider to proofread this document, occasional misspellings and typographical errors may still be present Due to the previous pandemic, and the use of personal protective equipment (PPE) This may decrease voice recognition accuracy Inadvertent electronic service technician errors may occur 12/26/2023 Fibromyalgia (ICD-10 - [...] minimum of 6 months The most recent [place] Association of clinical endocrinologists and [place] College of endocrinology guidelines recommend patients who [...] track activity level. Consider using apps like DreamFace Interactive, Pointpal, lose it, stick as needed for self-monitoring and weight management. Consider group exercises. Consider hiring a sharepoint trainer. Regular exercise is mcginnis to sustainable [...] software and direct typing Please excuse inadvertent electronic service technician or typing errors, or uncorrected word substitutions Although every attempt has been made by the provider to proofread this document, occasional misspellings and typographical errors may still be present Due to the previous pandemic, and the use of personal protective equipment (PPE) This may decrease voice recognition accuracy Inadvertent electronic service technician errors may occur 12/26/2023 BMI 45.0-49.9, adult [...] minimum of 6 months The most recent [place] Association of clinical endocrinologists and [place] College of endocrinology guidelines recommend patients who [...] track activity level. Consider using apps like DreamFace Interactive, Pointpal, lose it, stick as needed for self-monitoring and weight management. Consider group exercises. Consider hiring a sharepoint trainer. Regular exercise is mcginnis to sustainable [...] counseling and psychiatry and Dr Tejeda at [facility]. We would like to cover regular topics [...] software and direct typing Please excuse inadvertent electronic service technician or typing errors, or uncorrected word substitutions Although every attempt has been made by the provider to proofread this document, occasional misspellings and typographical errors may still be present Due to the previous pandemic, and the use of personal protective equipment (PPE) This may decrease voice recognition accuracy Inadvertent electronic service technician errors may occur 12/26/2023 Prediabetes (ICD-10 - [...] minimum of 6 months The most recent [place] Association of clinical endocrinologists and [place] College of endocrinology guidelines recommend patients who [...] track activity level. Consider using apps like DreamFace Interactive, myfitRedDrummerpal, lose it, stick as needed for self-monitoring and weight management. Consider group exercises. Consider hiring a sharepoint trainer. Regular exercise is mcginnis to sustainable [...] counseling and psychiatry and Dr Tejeda at [facility]. We would like to cover regular topics [...] software and direct typing Please excuse inadvertent electronic service technician or typing errors, or uncorrected word substitutions Although every attempt has been made by the provider to proofread this document, occasional misspellings and typographical errors may still be present Due to the previous pandemic, and the use of personal protective equipment (PPE) This may decrease voice recognition accuracy Inadvertent electronic service technician errors may occur Plan Of Treatment Medication Medication Name Sig Start Date Stop Date Notes Mounjaro 2.5 MG/0.5ML 2.5mg Subcutaneous weekly; Duration: 30 days Progress Notes * JESUS LOPEZOB: [birth year] (70 yo F)Acc No.[id number]:12/26/2023 Patient: JESUS CRONIN Provider: Alvin FRANCO NP :1955 A ge:68 Y S ex:Female Date:12/26/2023 Address:[address] [place], [place] [id number] Subjective: * Chief Complaints: * * HPI: [...] from [facility] PCP 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 Previous TTE @ [facility] Diet: grAb and go, no portion control/calorie [...] F ibromyalgia - M79.7 6 . B [place] 45.0-49.9, adult - Z68.42 7 . P [...] minimum of 6 months The most recent [place] Association of clinical endocrinologists and [place] [employer] of endocrinology guidelines recommend patients who [...] track activity level. Consider using apps like DreamFace Interactive, Pointpal, lose it, stick as needed for self-monitoring and weight management. Consider group exercises. Consider hiring a sharepoint trainer. Regular exercise is mcginnis to sustainable [...] counseling and psychiatry and Dr Tejeda at [facility]. We would like to cover regular topics [...] software and direct typing Please excuse inadvertent electronic service technician or typing errors, or uncorrected word substitutions Although every attempt has been made by the provider to proofread this document, occasional misspellings and typographical errors may still be present Due to the previous pandemic, and the use of personal protective equipment (PPE) This may decrease voice recognition accuracy Inadvertent electronic service technician errors may occur. Plan: * Treatment: * Images: Billing Information: * Visit Code: * Procedure Codes: * Electronic signature of PRANAY RIZZO LISAMARKSantos on 05/08/2025 at 07:56 AM EDT Sign off status: Pending * Provider: Alvin FRANCO NP Date: 0 12/26/2023 Generated for No diane/Yanni/Caitlin on: 1 07:56 AM EDT History and Physical Notes * [...] needs clearance from PCP to go to [facility]. 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 Previous TTE @ [facility] Diet: grAb and go, no portion control/calorie [...]
--- OUTSIDE RECORDS SUMMARY | 2024-02-21 06:45 | XMS_ITS ---
Author Organization [facility] [address] Address [address] [place] [address] Care Team Providers Care Hedge Fund Principal Name Role Phone LUIS ENRIQUE FRANCO Unavailable [phone] Encounters Encounter Location Date Provider Diagnosis [facility] [address] [address] 02/21/2024 LUIS ENRIQUE FRANCO Plan Of Treatment No Information Progress Notes * JESUS LOPEZ SDOB: [birth year] (70 yo F)Acc No.[id number]:02/21/2024 Patient: Fox COOKKEYONNASUSHMAAN Fox Provider: Alvin FRANCO NP :1955 A ge:68 Y S ex:Female Date:02/21/2024 Address:[address] [place], [place] [phone] Subjective: * Chief Complaints: * * Medical History: Objective: * Vitals: Assessment: Plan: * Treatment: * Images: Billing Information: * Visit Code: * Procedure Codes: * Electronic signature of PRANAY FRANCO on 05/08/2025 at 07:56 AM EDT Sign off status: Pending * Provider: Alvin FRANCO NP Date: 0 02/21/2024 Generated for Printi ng/Faregulog/eTransmitting on: 07:56 AM EDT
--- OUTSIDE RECORDS SUMMARY | 2024-05-14 04:45 | XMS_ITS ---
Author Organization [facility] [address] Address [address] [place] [address] Care Team Providers Care Photo Printer Name Role Phone LUIS ENRIQUE FRANCO Unavailable [phone] Encounters Encounter Location Date Provider Diagnosis [facility] [address] [address] 05/14/2024 LUIS ENRIQUE FRANCO Plan Of Treatment No Information Progress Notes * JESUS LOPEZ SDOB: [birth year] (70 yo F)Acc No.[id number]:05/14/2024 Patient: Fox COOKKEYONNASUSHMAAN Fox Provider: Alvin FRANCO NP :1955 A ge:69 Y S ex:Female Date:05/14/2024 Address:[address] [place], [place] [phone] Subjective: * Chief Complaints: * * Medical History: Objective: * Vitals: Assessment: Plan: * Treatment: * Images: Billing Information: * Visit Code: * Procedure Codes: * Electronic signature of PRANAY FRANCO on 05/08/2025 at 07:56 AM EDT Sign off status: Pending * Provider: Alvin FRANCO NP Date: Generated for Chaitanyai ng/Fasarah/eTransmitting on: 07:56 AM EDT
--- OUTSIDE RECORDS SUMMARY | 2025-05-07 09:27 | XMS_ITS | Encounter Summary ---
Author Organization [facility] Address [address] [place] [address] Care Team Providers Care Raspberry Checker Name Role Phone Enoch Zapata MD Primary Care Provider [phone] Reason for Visit * Imaging (Routine) - Closed Specialty Diagnoses / Procedures Referred By Kerry davis Referred To Contact Radiology Diagnoses Encounter for screening mammogram for breast cancer Procedures MG Mammo Digital Screening w Jamesdayron corral MG Mammo Digital Screening w JamesEnoch Burks MD [address] [place] [address] Phone: tel: fax: [facility] Referral ID Status Reason Start Date Expiration Date Visits Re quested Visits Authorized [id number] Closed 05/24/2024 08/07/2024 1 1 Encounter Details Date Type Department Care Team (Latest Contact Info) Description 05/07/2025 9:27 AM EDT - 05/07/2025 11:59 PM EDT Hospital Encounter Radiology Department - [address] [address] Encounter for screening mammogram for breast cancer Discharge Disposition: Home or Self Care Social History Tobacco Use Types Packs/Day Years [...] on file documented as of this encounter Medications at Time of Discharge amLODIPine (NORVASC) 10 mg tablet Take 1 tablet (10 mg total) by mouth 1 (one) time each day. 90 tablet 1 01/23/2025 amoxicillin (AMOXIL) 500 mg tablet 4 tablets (2,000 mg total). 1 HOUR PRIOR TO APPOINTMENT 02/05/2024 ARIPiprazole (ABILIFY) 5 mg tablet Take 1 tablet (5 mg total) by mouth 1 (one) time each day. MOOD STABILITY 11/03/2023 B complex tablet Take 1 tablet by mouth 1 (one) time each day. betamethasone dipropionate (DIPROSONE) 0.05 % cream Apply topically. 12/27/2024 cholecalciferol (VITAMIN D-3) 25 mcg (1,000 unit) tablet Take 1 tablet (1,000 Units total) by mouth 1 (one) time each day. 12/22/2023 diclofenac (VOLTAREN) 75 mg EC tablet Take 1 tablet (75 mg total) by mouth 2 (two) times a day if needed (pain). Do not crush, chew, or split. 180 tablet 3 12/18/2024 12/19/19 26 DULoxetine (CYMBALTA) [address] capsule Take 1 capsule (60 mg total) by mouth 2 (two) times a day. 02/18/2021 fluticasone propionate (FLONASE) 50 mcg/actuation nasal spray Administer 1 spray into each nostril 2 (two) times a day if needed. for nasal congestion 02/13/2024 guanFACINE (TENEX) 1 mg tablet Take 1.5 tablets (1.5 mg total) by mouth at bedtime. 01/18/2024 hydrOXYzine HCL (ATARAX) 50 mg tablet Take 1 tablet (50 mg total) by mouth 2 (two) times a day if needed for anxiety. 08/17/2018 ibuprofen (ADVIL,MOTRIN) 800 mg tablet TAKE 1 TABLET BY MOUTH THREE TIMES A DAY NEEDED FOR MILD PAIN 180 tablet 11/14/2024 ixekizumab (Taltz Autoinjector, 3 Pack,) 80 mg/mL injection 01/09/2024 losartan (COZAAR) 100 mg tablet Take 1 tablet (100 mg total) by mouth at bedtime. 90 tablet 1 03/19/2025 mirtazapine (REMERON) 15 mg tablet Take 1 tablet (15 mg total) by mouth at bedtime. nystatin (MYCOSTATIN) 100,000 unit/gram powder Apply topically 1 (one) time each day. 1 layer to areas or skin redness/rash of skin folds 15 g 5 04/24/2025 omeprazole (PriLOSEC) [address] capsule Take 1 capsule (20 mg total) by mouth 1 (one) time each day. Do not crush or chew. 30 capsule 5 12/18/2024 06/16/20 25 ondansetron (ZOFRAN) 4 mg tabletIndications:N ausea Take 1-2 tablets (4-8 mg total) by mouth every 8 (eight) hours if needed for nausea. 60 tablet 5 04/24/2025 pregabalin (LYRICA) 100 mg capsuleIndications: Other polyneuropathy Take 1 capsule (100 mg total) by mouth 3 (three) times a day. Max Daily Amount: 300 mg 60 capsule 5 03/19/2025 09/15/19 26 propranoloL (INDERAL) 20 mg tablet Take 1 tablet (20 mg total) by mouth 1 (one) time each day. rOPINIRole (REQUIP) 4 mg tabletIndications:r estless leg syndrome Take 1 tablet (4 mg total) by mouth at bedtime. 90 tablet 12/18/2024 simvastatin (ZOCOR) 20 mg tablet TAKE 1 TABLET BY MOUTH EVERYDAY AT BEDTIME 90 tablet 1 04/18/2025 documented as of this encounter Discharge Disposition Disposition Code Departure Means Destination Home or Self Care documented in this encounter Plan of Treatment Upcoming Encounters Date Type Department Care Team (Late st Contact Info) Description 05/09/2025 9:[address] [facility] [address] Scan [address] [place] [address] 05/09/2025 9:[address] [facility] Ultrasound [address] [place] [address] 10/08/2025 9:45 AM EST Office Visit Adult Medicine [address] [phone] Enoch Zapata MD [address] [place] [address] Pending Results Name Type Priority Associated Diagnoses Date /Time MG Mammo Digital Screening w James bilat Imaging Routine Encounter for screening mammogram for breast cancer 05/07/2025 9:34 AM EDT Scheduled Orders Name Type Priority Associated Diagnoses Orde r Schedule MG Mammo Digital Screening w James bilat Imaging Routine Encounter for screening mammogram for breast cancer Once for 1 Occurrences starting 05/07/2025 until 05/07/2025 documented as of this encounter Visit Diagnoses Diagnosis Encounter for screening mammogram for breast cancer documented in this encounter Additional Health Concerns Assessment Noted Time PHQ-9 Depression Total Score: 4 09/07/19 25 11:45 AM EST A fall risk assessment has been complete d for the patient 09/07/2024 11:44 AM EST documented as of this encounter Care Teams Raspberry Checker Relationship Specialty Start Date End Date Enoch Zapata MD [address] [place] [address] PCP - General Internal Medicine 10/12/21 documented as of this encounter
--- OUTSIDE RECORDS SUMMARY | 2025-05-08 07:56 | XMS_ITS | Encounter Summary ---
Author Organization [facility] Address [address] [place] [address] Care Team Providers Care Draw Hand Name Role Phone Enoch Zapata MD Primary Care Provider [phone] Encounter Details Date Type Department Care Team ([facility] Contact Info) Description 03/08/2025 Telephone Lung Screening Program - [address] [id number] Pia New [place] Social History Tobacco Use Types Packs/Day Years [...] as of this encounter Progress Notes * Myrna Phillips MA - 05/07/2025 10:26 AM EDT Spoke with Elmira who confirmed her Annual LDCT for 05/09/25 at 9:15 am with 9:00 am arrivaltime at Patient Registration. * Pia New MA - 03/08/2025 3:42 PM EDT Elmira Braxton Akshatisaac was contacted by the Lung Cancer Screening Program today to confirm the appointment of their Lung Cancer Screening. The patient is currently scheduled to have their screening on Wednesday April 02, 2025, at 730 AM at [facility]. No answer left message For all screenings scheduled during the week, the patient will check in at Patient Registration on the first floor of the main hospital. For screenings that take place on the weekend or after 5pm, check-in directly in Radiology. The patient was given the Lung Cancer Screening Program phone number, , to contact if they have any additional questions, concerns or need to reschedule. Patients are encouraged to call our office and reschedule if they are exhibiting any cold-like symptoms, have recently been treated for Pneumonia or Influenza (the flu) or have had another CT of their Chest since their last screening. documented in this encounter Plan of Treatment Upcoming Encounters Date Type Department Care Team (Late st Contact Info) Description 05/09/2025 9:15 AM EDT Appointment [facility] CT Scan [address] [place] [address] 05/09/2025 9:30 AM EDT Appointment [facility] Ultrasound [address] [place] [address] 10/08/2025 9:45 AM EST Office Visit Adult Medicine [address] [phone] Enoch Zapata MD [address] [place] [address] documented as of this encounter Visit Diagnoses Not on filedocumented in this encounter Additional Health Concerns Assessment Noted Time PHQ-9 Depression Total Score: 4 09/07/19 25 11:45 AM EST A fall risk assessment has been complete d for the patient 09/07/2024 11:44 AM EST documented as of this encounter Care Teams Draw Hand Relationship Specialty Start Date End Date Enoch Zapata MD [address] [place] [address] PCP - General Internal Medicine 10/12/21 documented as of this encounter
--- OUTSIDE RECORDS SUMMARY | 2025-05-08 07:56 | XMS_ITS | Patient Health Record ---
Author Organization [facility] Address [address] [place] [address] Care Team Providers Care Rendering Equipment Tender Name Role Phone LUIS ENRIQUE FRANCO Unavailable [phone] Allergies Allergen (clinical drug ingredient) Drug/Non Drug [...] Problem Obesity due to exces s calories (181204184) Other obesity due to excess calories (E66.09) Active confirmed Problem Hyperlipidemia (36227891) Hyperlipidemia , unspecified (E78.5) Active confirmed Problem Chronic pain syndrom e (721936785) Chronic pain syndrome (G89.4) Active confirmed Problem Essential hypertensi on (70796714) Essential (primary) hypertension (I10) Active confirmed Problem Fibromyalgia (729489854) Fibromyalgia (M79.7) Active confirmed Problem Body mass index 40+ - severely obese (581673727) Body mass index (BMI) 45.0-49.9, adult (Z68.42) Active confirmed Problem Pure hypercholesterolemia (107691876) Pure hypercholester olemia, unspecified (E78.00) Active confirmed Problem Body mass index 35.0 0 to 39.99 (286401462171291) Body mass index [BMI] 36.0-36.9, adult (Z68.36) Active confirmed Problem Body mass index 40+ - severely obese (886486128) BMI 45.0-49.9, adult (Z68.42) Active confirmed Problem Morbid obesity (512947848) Morbid obesity due to excess calories (E66.01) Active confirmed Encounters Encounter Location Date Provider Diagnosis [facility] [address] [address] 05/09/2024 LUIS ENRIQUE FRANCO Plan Of Treatment No Information Insurance Providers Payer Name Payer Address Payer Phone Subscriber Number Group Number Insured Name Patient Relationship to Insured Coverage Start Date Coverage End Date [employer] Medicare Value PPO [address] [place] [address] [id number] JESUS LOPEZ Self - patient is the insured Medical (General) History Medical History History ICD Code hypertension hypercholesterolemia restless leg syndrome depression insomnia Surgical History Surgery Date(Month/Year) right knee replacement left knee replacement
--- OUTSIDE RECORDS SUMMARY | 2025-05-08 07:56 | XMS_ITS | Encounter Summary ---
Author Organization [facility] Address [address] [place] [address] Care Team Providers Care Electronic Design Engineer Name Role Phone Enoch Zapata MD Primary Care Provider [phone] Reason for Visit * Reason Onset Date Comments Results 04/11/2025 Encounter Details Date Type Department Care Team (Late st Contact Info) Description 04/11/2025 Telephone Adult Medicine [address] [phone] Enoch Zapata MD [address] [place] [address] Social History Tobacco Use Types Packs/Day Years [...] as of this encounter Progress Notes * Enoch Zapata MD - 05/07/2025 8:22 PM EDT I will have to defer to pain management * Gulshan Lora MA - 05/03/2025 11:05 AM EDT Spoke with pt she is not having uti symptoms anymore, pt said that she haves a pinch nerve, but sheis seeing pain management, but there not doing anything to help the pain. Please review and advise. * Dilcia Sepulveda - 05/03/2025 9:55 AM EDT Patient returning your call (Call from Marycruz) * Dilcia Sepulveda - 04/15/2025 11:51 AM EDT Please call patient regarding test results, can see My Chart on her phone. * Dilcia Sepulveda - 04/12/2025 12:02 PM EDT Patient calling for results, call after 2pm Can't see My Chart on her phone * ANN Royal - 04/12/2025 9:12 AM EDT Please see result note which was sent to patient: Jim Ku, I have reviewed your recent results which [...] Info) Description 05/09/2025 9:15 AM EDT Appointment [facility] CT Scan [address] [place] [address] 05/09/2025 9:30 AM EDT Appointment [facility] Ultrasound [address] [place] [address] 10/08/2025 9:45 AM EST Office Visit Adult Medicine [address] [phone] Enoch Zapata MD [address] [place] [address] documented as of this encounter Visit Diagnoses Not on filedocumented in this encounter Additional Health Concerns Assessment Noted Time PHQ-9 Depression Total Score: 4 09/07/19 25 11:45 AM EST A fall risk assessment has been complete d for the patient 09/07/2024 11:44 AM EST documented as of this encounter Care Teams Electronic Design Engineer Relationship Specialty Start Date End Date Enoch Zapata MD [address] [place] [address] PCP - General Internal Medicine 10/12/21 documented as of this encounter
--- OUTSIDE RECORDS SUMMARY | 2025-05-08 07:57 | XMS_ITS | Clinical Summary ---
Author Organization [place] [address] [facility] Address [address] [place], [place] [address] [address] Phone Care Team Providers Care Heel Seat Filler Name Role Phone Enoch Zapata MD Primary Care Provider [phone] Allergies Active Allergy Reactions Criticality Noted Date [...] by mouth 1 (one) time each day. 024 Active DULoxetine (CYMBALTA) [address] capsule [...] Date Diagnosed Date Cocaine abuse in remission ([facility] V24, [facility] V28) 10/31/2024 Panic disorder 10/31/2024 Sacroiliac joint dysfunction of both sides 10/31 Insomnia 10/31/2024 Infrarenal abdominal aortic aneurysm (AAA) without rupture ([facility] V24) 10/31/2024 Overview (10/31/2024): 10/01/24: Elevated [...] with renal ultrasound prior Ascending aorta dilation ([facility] V24) 8 Overview (10/31/2024): 10/31/24: Ascending aorta is dilated (4.0 cm); Sinus of Valsalva is dilated (3.2 cm). Echo 10/2018 - 4cm dilation Echo 10/2017 - Ascending 4cm and transverse 3.2cm aorta dilation Severe obesity (BMI 35.0-39. 9) with comorbidity (CMS/HCC V24, CMS/HCC V28) 06/27/2017 Vitamin D deficiency 08/18/2016 Right shoulder pain 05/03/2016 Overview (06/17/2024): [facility] - 04/20/16 - right shoulder injection, [...] Overview (06/17/2024): Dr. Salazar - Psychiatrist - [facility] Back pain 02/20/2010 Overview (06/17/2024): [facility] Lumbar [facility] - [...] Encounters Date Type Department Care Team Description 05/07/2025 9:27 AM EDT - 05/07/2025 11:59 PM EDT Hospital Encounter Radiology Department - [address] [address] Encounter for screening mammogram for breast cancer Discharge Disposition: Home or Self Care 04/30/2025 9:00 AM EDT Office Visit Orthopedic Surgery [facility] 160 175 [facility] 160 [place] [phone] Carrie Lundberg MD Arthritis of left shoulder (Primary Dx) 04/30/2025 Telephone Orthopedic Surgery [facility] 160 175 [facility] 160 [place] [address] Carrie Lundberg MD 04/18/2025 9:30 AM EDT Office Visit Vascular Surgery [facility] [address] [facility] [address] [place] [address] Jessy Hutchins MD Swelling of left lower extremity (Primary Dx); Left leg pain; Aortic ectasia (CMS/[facility] V24) 04/16/2025 7:00 AM EDT - 04/16/2025 11:59 PM EDT Hospital Encounter [facility] Nuclear Medicine [address] [place] [phone] Chronic nausea Discharge Disposition: Home or Self Care 04/11/2025 Telephone Adult Medicine [address] [phone] Enoch Zapata MD 04/10/2025 2:00 PM EDT Office Visit Adult Medicine [address] [phone] Joe Burton PA Urinary frequency (Primary Dx); Prediabetes 04/04/2025 Telephone Adult Medicine [address] [phone] Enoch Zapata MD 03/19/2025 11:30 AM EDT Office Visit Adult [address] [phone] Enoch Zapata MD Primary hypertension (Primary Dx); Nausea; Other polyneuropathy; Prediabetes; Pure hypercholesterolemia 03/18/2025 7:45 AM EDT Ancillary Procedure [facility] 101 300 [facility] 101 [place] [phone] Swelling of left lower extremity; Left leg pain 03/08/2025 Telephone Lung Screening Program - [place] 299 [facility] [address] [place] [phone] Pia New [place] 02/22/2025 11:15 AM EDT Office Visit Orthopedic Surgery [facility] 160 175 [facility] 160 [place] [phone] Carrie Lundberg MD Arthritis of right shoulder (Primary Dx) 02/22/2025 11:00 AM EDT Ancillary Procedure Orthopedic Surgery [facility] 160 175 [facility] 160 [place] [address] 02/12/2025 8:20 AM EDT Consult Gastroenterology - [place] 175 [facility] 175 [facility] 200 [place] [address] Jihan Cronin NP Chronic nausea (Primary Dx); Marijuana use; Gastroesophageal reflux disease without esophagitis from Last 3 Months Immunizations Immunization Administration Dates Next Due Td Tetanus diptheria (Tdvax) 7yo and older 03/27 Tdap Tetanus diptheria acell ular pertussis (Boostrix; Adacel) 7yo and older 09/25/2012 Surgical History Surgery Date Site/Laterality Comments BACK SURGERY 2006 PROCEDURE: HISTORICAL BACK SURGERY; COMMENT: Dr. Rinaldi ANKLE SURGERY 2007 PROCEDURE: HISTORICAL ANKLE SURGERY; COMMENT: Dr. Dior KNEE SURGERY 2010 Right PROCEDURE: HISTORICAL KNEE SURGERY; COMMENT: Arthroscopic OTHER SURGICAL HISTORY 12/27/2013 PROCEDURE: ---- OTHER ----; COMMENT: L1 laminectomy KNEE SURGERY Left PROCEDURE: HISTORICAL KNEE SURGERY COLONOSCOPY 01/17/2018 PROCEDURE: HISTORICAL COLONOSCOPY; COMMENT: negative UPPER GASTROINTESTINAL ENDOSCOPY 01/17/2018 PROCEDURE: UPPER GI ENDOSCOPY/EXAM; COMMENT: gastric and duodenal ulcers UPPER GASTROINTESTINAL ENDOSCOPY 05/16/2018 PROCEDURE: SD UPPER GI ENDOSCOPY PERFORMED; COMMENT: complete resolution [...] obesity wit h BMI of 40.0-44.9, adult ([facility]) Family History Medical History Relation Name Comments Heart attack Father Breast cancer Mother Breast cancer Other mat cousin Other: ca brain Son 1 Colon cancer Neg Hx Ovarian cancer Neg Hx Relation Name Status Comments Father (Age 57) [place] at age 57 Mother (Age 86) [place] Other mat cousin Son 1 Son 2 [...] Sexual Orientation Not on file Obstetrics History Para Term AB IAB SAB Ectopic Multiple Livin g Live Births 1 Date Outcome GA Total Labor Labor/2nd/3rd Weight Sex Type Anes PTL Ruthie A1 A5 Name Clin Term Last Filed Vital Signs Vital Sign Reading [...] Info) Description 05/09/2025 9:15 AM EDT Appointment [facility] CT Scan [address] [place] [address] 05/09/2025 9:30 AM EDT Appointment [facility] Ultrasound [address] [place] [address] 10/08/2025 9:45 AM EST Office Visit Adult Medicine [address] [phone] Enoch Zapata MD [address] [place] [address] Health Maintenance Due Date Last Done Comments [...] COLONOSCOPY REPORT Routine 02/28/2025 4:01 PM EDT SD ARTHROCENTESIS/ASPIR ATION/INJECTION MAJOR JOINT/BURSA W/O U/S GUIDANCE [...] Signed Date: 04/17/2025 12:58 ET Workstation ID: [id number] Transcribed By: Self Edit Transcribed Date: 04/17/2025 [...] Signed Date: 04/17/2025 12:58 ET Workstation ID: [id number] Transcribed By: Self Edit Transcribed Date: 04/17/2025 12:57 ET Jihan Cronin MANAGER OF RECRUITING IMG NM PROCEDURES Final Result * Gonzalez urine culture tube (04/10/2025 3:01 PM EDT) [facility] Extra Tube Hold for add-ons. 04/10/2025 5:01 PM EDT [facility] Comment:Auto resulted. Urine Urine specimen obtained by clean catch procedure / Unknown Non-blood Collection / Unknown 04/10/2025 3:01 PM EDT 04/10/2025 3:01 PM EDT Joe JUAREZ LAB URINE ORDERABLES Fi nal Result [facility] [address] [place] [address], * (ABNORMAL) Urinalysis with reflex microscopic and culture (04/10/2025 2:24 PM EDT) [facility] Specific [place] Urine 1.007 1.003 - 1.030 LAB URINALYSIS - AUTOMATED METHOD 04/10/2025 5:10 PM [facility] pH, Urine 6.0 5.0 - 8.0 pH LAB URINALYSIS - AUTOMATED METHOD 04/10/2025 5:10 PM [facility] Leukocytes, Urine Small(A) Negative LAB URINALYSIS - AUTOMATED METHOD 04/10/2025 5:10 PM [facility] Nitrite, Urine Negative Negative LAB URINALYSIS - AUTOMATED METHOD 04/10/2025 5:10 PM [facility] Protein, Urine Negative <=Trace mg/dL LAB URINALYSIS - AUTOMATED METHOD 04/10/2025 5:10 PM [facility] Glucose, Urine Negative Negative mg/dL LAB URINALYSIS - AUTOMATED METHOD 04/10/2025 5:10 PM [facility] Ketones, Urine Negative Negative mg/dL LAB URINALYSIS - AUTOMATED METHOD 04/10/2025 5:10 PM [facility] Urobilinogen, Urine 0.2 0.2 - [...] 5:10 PM EDT [facility] Squamous Epithelial, Urine 34 0 - 60 /LPF LAB URINALYSIS - AUTOMATED METHOD 04/10/2025 5:10 PM EDT [facility] Bacteria, Urine Negative Negative /HPF LAB URINALYSIS - AUTOMATED METHOD 04/10/2025 5:10 PM EDT [facility] Hyaline Casts, Urine 1.2 0 - 3 /LPF LAB URINALYSIS - AUTOMATED METHOD 04/10/2025 5:10 PM [facility] Urine Urine specimen obtained by clean catch procedure / Unknown Non-blood Collection / Unknown 04/10/2025 2:24 PM EDT 04/10/2025 2:28 PM EDT Joe JUAREZ LAB URINE ORDERABLES Fi nal Result [facility] [address] [place] [address], * Culture urine (04/10/2025 2:24 PM EDT) Culture, Urine <10,000 cfu/mL Mixed bacterial tonja 04/11/2025 10:46 AM EDT [facility] Urine Urine specimen obtained by clean catch procedure / Unknown Non-blood Collection / Unknown 04/10/2025 2:24 PM EDT 04/10/2025 5:10 PM EDT Joe JUAREZ LAB MICROBIOLOGY - GENE RAL ORDERABLES Final Result Performing Organization Address [facility]/ZIP Co de Phone Number [facility] [address] [place] [address], [place] [phone] * Hemoglobin A1c (03/19/2025 12:11 PM EDT) Hemoglobin A1C 5.7 <6.5 % LAB CHEMISTRY METHOD 03/19/2025 6:23 PM EDT [facility] Mean Bld Glu Estim. 117 mg/dL LAB CHEMISTRY METHOD 03/19/2025 6:23 PM EDT [facility] Blood Venous blood specimen / Unknown Venipuncture / Unknown 03/19/2025 12:11 PM EDT 03/19/2025 12:11 PM EDT Enoch Zapata MD LAB BLOOD ORDERABLES Final Resu lt Performing Organization Address [facility]/ZIP Co de Phone Number [facility] [address] [place] [address], [place] [phone] * Vascular US duplex lower extremity venous [...] trendelenburg. Left saphenopopliteal junction was not identified. Entry Level Electrician Details A gonzalez scale, color and doppler [...] Provider GI~PROCEDURE ORDERABLES F inal Result * SD ARTHROCENTESIS/ASPIRATION/INJECTION MAJOR JOINT/BURSA W/O U/S GUIDANCE (02/22/2025 [...] patients medical record. us Carrie Lundberg MD [facility] US PROCEDURES Final Result * (ABNORMAL) Lipid panel with reflex to direct LDL (12/18/2024 3:48 PM EDT) Cholesterol 171 0 - 200 mg/dL LAB CHEMISTRY METHOD 12/18/2024 6:59 PM EDT [facility] Triglycerides 198(H) 0 - 150 [...] Resu lt [facility] [address] [place] [address], * (ABNORMAL) Comprehensive metabolic panel (12/18/2024 3:48 [...] 6:57 PM T [facility] Anion Gap 6 3 - 11 LAB CHEMISTRY METHOD 12/18/2024 6:57 PM [facility] Glucose 75 70 - 100 mg/dL LAB CHEMISTRY METHOD 12/18/2024 6:57 PM [facility] BUN 26(H) 5 - 25 mg/dL LAB CHEMISTRY METHOD 12/18/2024 6:57 PM [facility] Creatinine 0.83 0.50 - 1.10 mg/dL LAB CHEMISTRY METHOD 12/18/2024 6:57 PM [facility] eGFR 77 >=60 mL/min/1. 73m2 LAB CHEMISTRY METHOD 12/18/2024 6:57 PM [facility] Comment:Calculation based on the Chronic Kidney Disease Epidemiology Collaboration (CKD-EPI) equation refit without adjustment for race. BUN/Creatinine Ratio 31.3 LAB CHEMISTRY METHOD 12/18/2024 6:57 PM [facility] Calcium 9.6 8.5 - 10.5 mg/dL LAB CHEMISTRY METHOD 12/18/2024 6:57 PM [facility] AST (SGOT) 16 10 - 42 unit/L LAB CHEMISTRY METHOD 12/18/2024 6:57 PM [facility] ALT (SGPT) 23 10 - 60 unit/L LAB CHEMISTRY METHOD 12/18/2024 6:57 PM [facility] Alkaline Phosphatase 94 42 - 121 unit/L LAB CHEMISTRY METHOD 12/18/2024 6:57 PM [facility] Total Protein 7.0 6.0 - 8.0 g/dL LAB CHEMISTRY METHOD 12/18/2024 6:57 PM [facility] Albumin 3.8 3.2 - 5.0 g/dL LAB CHEMISTRY METHOD 12/18/2024 6:57 PM [facility] Total Bilirubin 0.5 0.0 - 1.4 mg/dL LAB CHEMISTRY METHOD 12/18/2024 6:57 PM [facility] Blood Venous blood specimen / Unknown Venipuncture / Unknown 12/18/2024 3:48 PM EDT 12/18/2024 3:48 PM EDT us Enoch Zapata MD LAB BLOOD ORDERABLES Final Resu lt [facility] [place] ([facility]) [facility] [address] [place] [address], * DIAGNOSTIC MAMMOGRAPHY INCLUDING CAD BILATERAL (04/20/2024 [...] Breast cancer risk category Low (<15%) Location: [facility], [address] [place] [address], [place], [address], [phone] Procedure Note Ligia Smith MD - 05/23/2024 [...] right breast has been present and unchanged [id number]. Tiny adjacent nodule with associated biopsy clip [...] Breast cancer risk category Low (<15%) Location: [facility], [address] [place] [address], [address], [phone] us Enoch Zapata MD IMG BI PROCEDURES Final Result * KAYDEN DEXA AXIAL SKELETON (12/04/2018 5:36 PM EDT) Anatomical Region Laterality Modality Mammography 12/04/2018 9:49 AM EDT Narrative 12/04/2018 5:36 PM EDT [facility] Diagnostic Imaging Department [address] [place] [address] Patient: ELMIRA MAURICIO Fox BoyerB./Age/Sex: 1955 - 63 - F Unit#: [id number] Location/Status: SPDIMAM/REG CLI Mnemonic/Ordering Site: MAMDEXAAX/SPMAM Ordering Physician: TEREZA FERNANDEZ MD, PHD Kayden Dexa Axial Skeleton - 12/04/18 - 1040 History: Low estrogen state due to menopause. Tobacco use. Back pain. Findings: Bone densitometry is performed utilizing dual energy x-ray absorptiometry (DXA) in the [employer] unit. The lumbar spine and proximal femora [...] 0.1 percent. IMPRESSION: Normal bone mineral density. [id number] Dictating Physician: EARNESTINE SAMPSON MD Electronically Signed by: EARNESTINE SAMPSON MD Dic Date/Time: 12/04/181732 Sign date/Time: 12/04/181735 Procedure Note Earnestine Sampson MD - 07/27/2022 [facility] Diagnostic Imaging Department [address] [place], [place] [id number] Patient: ELMIRA MAURICIO Fox /Age/Sex: 1955 - 63 - F Unit#: [id number] Location/Status: SPDIMAM/REG CLI Mnemonic/Ordering Site: MAMDEXAAX/SPMAM Ordering Physician: TEREZA FERNANDEZ MD, PHD [facility] Dexa Axial Skeleton - 12/04/18 - 1045 History: Low estrogen state due to menopause. Tobacco use. Back pain. Findings: Bone densitometry is performed utilizing dual energy x-ray absorptiometry(DXA) in the [employer] unit. The lumbar spine and proximal femora [...] 0.1 percent. IMPRESSION: Normal bone mineral density. [id number] Dictating Physician: EARNESTINE SAMPSON MD Electronically Signed by: EARNESTINE SAMPSON MD Dic Date/Time: 12/04/18 173 Sign date/Time: 12/04/18 173 us Tereza Fernandez MD IMG BI PROCEDURES Final R esult * Hepatitis C Screening (06/11/2013) Pathologist [facility] Hepatitis C Screening abstracted Historical Provider HEALTH MAINTENANCE Final Result from Last 3 Months or Most Recently Relevant to Health Maintenance Insurance [facility] MEDICARE Member Subscriber Plan / Payer (Ef fective 2024-Present) Name:Elmira Mauricio Relation to Subscriber:Self Name:Elmira Mauricio Payer ID:[id number] Group ID:[id number] Type:Not on file Address: [address] [place] [address] Advance Directives Documents on File Type Date Recorded Patient Door Operator Expl anation Health Care Decision (hx) 07/12/2023 HE ALTH CARE PROXY Health Care Decision (hx) 07/12/2023 HE ALTH CARE PROXY Health Care Decision (hx) 07/12/2023 HE ALTH CARE PROXY Health Care Decision (hx) 07/12/2023 HE ALTH CARE PROXY Care Teams Heel Seat Filler Relationship Specialty Start Date End Date Enoch Zapata MD [address] [place] [address] PCP - General Internal Medicine 10/12/21
[2025-05-08 08:13] VITALS: BP 152/98; PULSE 76; O2SAT 95; BMI 40.8
--- NOTE | 2025-05-08 08:13 | A.OFFVIS_ITS ---
Vital Signs 05/08/25 08:13 Height 5 ft 3 in Weight 230 lb 8 oz BMI 40.8 BP 152/98 H Blood Pressure Location Rt brachial Position Sitting Pulse 76 Pulse Source Pulse Oximeter Pulse Oximetry (%) 95 Oxygen Delivery Method Room Air Intake Visit Reasons: ENP - RLS Intake Note: RLS Home School Liaison Officer Required: No Accompanied by: Self / Same As Patient Allergies acetaminophen (From Tylenol) Allergy (Intermediate, Verified 05/08/25 08:13) Rash erythromycin base Allergy (Intermediate, Verified 05/08/25 08:13) Rash HPI Comments Details: 70y/o female comes for further management of restless less legs syndrome. She was seeing Dr. Mario who recently retired and she is transferring care here. she also has failed back syndrome with chronic pain - managed by pain management. she has chronic sleep issues. she can fall asleep with mirtazapine but wakes every hr to use the bathroom, leg spasms etc. she reports restlessness- movements in her legs starting in the afternoon and late evening- moving helps, rubbing helps and walking around helps. No pain but discomfort she is on Ropinirole 4mg at 4pm and pregabalin 100mg tid ( for fibrolmyalgia) she has loud snoring and hypersomnia - never had a sleep study [facility] Medical History (Updated 05/08/25 @ 09:03 by Елена Key MD) Restless legs syndrome (RLS) Insomnia Hypersomnia Snoring Dilatation of aorta Closed fracture of left distal fibula Spinal stenosis of lumbar region Anxiety Depression Hypertension Restless legs syndrome (RLS) Hyperlipidemia Prediabetes Fibromyalgia Surgical History History of arthroscopic knee surgery History of laminectomy Social History Patient Tobacco Use Status: Former Tobacco user Tobacco use type: Cigarette Physical Exam Vital Signs: Last Vital Signs Pulse 76 05/08/25 08:13 BP 152/98 H 05/08/25 08:13 Pulse Ox 95 05/08/25 08:13 Oxygen Delivery Method Room Air 05/08/25 08:13 BMI result Body Mass Index 40.8 Const General: cooperative Nutritional Appearance: obese Orientation/consciousness: patient oriented x3 Limitations: physical limitations and ambulation with walker Eyes Pupils: Equal, round and reactive pupils present Neuro Other: Gait- antalgic , feet rotates internally , better with walker Mallampatti grade 4 General: patient oriented x3 and moves all extremities Cranial nerves: Yes Equal, round and reactive pupils present, Yes Nystagmus not present, Yes Normal facial strength present and Yes Ability to bilaterally elevate shoulders present Cognition (Neuro): normal cognition Motor exam (neuro): Normal motor muscle tone present throughout Deep tendon reflexes (DTR's): Right triceps reflex intensity grade: 2+, Left triceps reflex intensity grade: 2+, Rt Biceps (C5, C6): 2+, Left biceps reflex intensity grade: 2+, Right brachioradialis reflex intensity grade: 2+, Left brachioradialis reflex intensity grade: 2+, Right patellar reflex intensity grade: 0 and Left patellar reflex intensity grade: 0 Coordination: [id number] test normal Assessment & Plan Assessment & Plan (1) Restless legs syndrome (RLS): Code(s): G25.81 - Restless legs syndrome Category: Medical (2) Snoring: Code(s): R06.83 - Snoring Category: Medical (3) Hypersomnia: Code(s): G47.10 - Hypersomnia, unspecified Category: Medical (4) Insomnia: Code(s): G47.00 - Insomnia, unspecified Category: Medical Plan I suggested to continue ropinirole 4mg q 4pm and pregabalin as prescribed I will evaluate her with sleep study to r/o sleep apnea Check her Vit D B 12 Ferritin CBC CMP to r/o reversible causes of RLS> Orders: Orders Vitamin B12 and Folate Today G47.00 - Insomnia, unspecified, G89.4 - Chronic pain syndrome Ferritin Today G47.00 - Insomnia, unspecified, G89.4 - Chronic pain syndrome TSH reflex Free T4 Today G47.00 - Insomnia, unspecified, G89.4 - Chronic pain syndrome Comprehensive Met. Panel Today G47.00 - Insomnia, unspecified, G89.4 - Chronic pain syndrome Complete Blood Count Auto Diff Today G47.00 - Insomnia, unspecified, G89.4 - Chronic pain syndrome RT PSG in-lab sleep study Today G47.00 - Insomnia, unspecified, G47.10 - Hypersomnia, unspecified, G47.61 - Periodic limb movement disorder, R06.83 - Snoring Vitamin D 25-OH (D2 and D3) Today G47.00 - Insomnia, unspecified, G89.4 - Chronic pain syndrome Coding Level of Care Code New Pt Level 4 (92834) Complex EM visit Add On G2211 Diagnoses Restless legs syndrome (RLS) G25.81 Snoring R06.83 Hypersomnia G47.10 Insomnia G47.00
== END 2025-05-08 08:55 | disposition home or self-care (01) ==
LOC: HO.HSMS 07:51
PROVIDERS: PCP Internal Medicine; Visit Provider Psychiatry & Neurology Neurology
DX: G25.81 Restless legs syndrome (principal); R06.83 Snoring; G47.10 Hypersomnia, unspecified; G47.00 Insomnia, unspecified
CPT/HCPCS: 99204; G2211

== ENCOUNTER → 2025-05-08 07:51 | Outpatient (BNVA) | payer OTHER, SELFPAY | PROVIDERS: PCP Internal Medicine; Visit Provider Psychiatry & Neurology Neurology | DX: G25.81 Restless legs syndrome (principal); G47.10 Hypersomnia, unspecified; G47.00 Insomnia, unspecified; R06.83 Snoring | CPT/HCPCS: 99202 ==

== ENCOUNTER 2025-06-28 06:56 | Day surgery (SDC) | payer OTHER, SELFPAY ==
--- OUTSIDE RECORDS SUMMARY | 2023-12-26 05:30 | XMS_ITS ---
Author Organization [facility] [address] Address [address] [place] [address] Care Team Providers [employer] Name Role Phone LISALUIS ENRIQUE JOVEL Unavailable [phone] Medications Medication SIG (Take, Route, Fr equency, Duration) Notes Start Date End Date Status Mounjaro 2.5 MG/0.5ML 2.5mg Subcutaneous weekly; Duration: 30 days Active Encounters Encounter Location Date Provider Diagnosis [facility] [address] [id number] 12/26/2023 LUIS ENRIQUE FRANCO Essential (primary) hypertension [...] minimum of 6 months The most recent [place] [employer] of clinical endocrinologists and [place] [employer] of endocrinology guidelines recommend patients who [...] track activity level. Consider using apps like [employer], myfitnesspal, lose it, stick as needed for self-monitoring and weight management. Consider group exercises. Consider hiring a driver trainer. Regular exercise is mcginnis to sustainable health [...] counseling and psychiatry and Dr Tejeda at [facility]. We would like to cover regular topics [...] software and direct typing Please excuse inadvertent life specialist or typing errors, or uncorrected word substitutions Although every attempt has been made by the provider to proofread this document, occasional misspellings and typographical errors may still be present Due to the previous pandemic, and the use of personal protective equipment (PPE) This may decrease voice recognition accuracy Inadvertent life specialist errors may occur 12/26/2023 Pure hypercholesterol emia, [...] minimum of 6 months The most recent [place] [employer] of clinical endocrinologists and [place] [employer] endocrinology guidelines recommend patients who [...] track activity level. Consider using apps like [employer], myfitnesspal, lose it, stick as needed for self-monitoring and weight management. Consider group exercises. Consider hiring a driver trainer. Regular exercise is mcginnis to sustainable health [...] counseling and psychiatry and Dr Tejeda at [facility]. We would like to cover regular topics [...] software and direct typing Please excuse inadvertent life specialist or typing errors, or uncorrected word substitutions Although every attempt has been made by the provider to proofread this document, occasional misspellings and typographical errors may still be present Due to the previous pandemic, and the use of personal protective equipment (PPE) This may decrease voice recognition accuracy Inadvertent life specialist errors may occur 12/26/2023 Morbid obesity due [...] minimum of 6 months The most recent [place] [employer] of clinical endocrinologists and [place] [employer] of endocrinology guidelines recommend patients who [...] track activity level. Consider using apps like [employer], [employer], lose it, stick as needed for self-monitoring and weight management. Consider group exercises. Consider hiring a driver trainer. Regular exercise is mcginnis to sustainable health [...] counseling and psychiatry and Dr Tejeda at [facility]. We would like to cover regular topics [...] software and direct typing Please excuse inadvertent life specialist or typing errors, or uncorrected word substitutions Although every attempt has been made by the provider to proofread this document, occasional misspellings and typographical errors may still be present Due to the previous pandemic, and the use of personal protective equipment (PPE) This may decrease voice recognition accuracy Inadvertent life specialist errors may occur 12/26/2023 Chronic pain syndrome [...] minimum of 6 months The most recent [place] [employer] of clinical endocrinologists and [place] [employer] of endocrinology guidelines recommend patients who [...] track activity level. Consider using apps like [employer], [employer], lose it, stick as needed for self-monitoring and weight management. Consider group exercises. Consider hiring a driver trainer. Regular exercise is mcginnis to sustainable health [...] counseling and psychiatry and Dr Tejeda at [facility]. We would like to cover regular topics [...] software and direct typing Please excuse inadvertent life specialist or typing errors, or uncorrected word substitutions Although every attempt has been made by the provider to proofread this document, occasional misspellings and typographical errors may still be present Due to the previous pandemic, and the use of personal protective equipment (PPE) This may decrease voice recognition accuracy Inadvertent life specialist errors may occur 12/26/2023 Fibromyalgia (ICD-10 - [...] minimum of 6 months The most recent [place] [employer] of clinical endocrinologists and [place] [employer] of endocrinology guidelines recommend patients who [...] track activity level. Consider using apps like [employer], [employer], lose it, stick as needed for self-monitoring and weight management. Consider group exercises. Consider hiring a driver trainer. Regular exercise is mcginnis to sustainable health [...] software and direct typing Please excuse inadvertent life specialist or typing errors, or uncorrected word substitutions Although every attempt has been made by the provider to proofread this document, occasional misspellings and typographical errors may still be present Due to the previous pandemic, and the use of personal protective equipment (PPE) This may decrease voice recognition accuracy Inadvertent life specialist errors may occur 12/26/2023 BMI 45.0-49.9, adult [...] minimum of 6 months The most recent [place] [employer] of clinical endocrinologists and [place] [employer] of endocrinology guidelines recommend patients who [...] track activity level. Consider using apps like [employer], [employer], lose it, stick as needed for self-monitoring and weight management. Consider group exercises. Consider hiring a driver trainer. Regular exercise is mcginnis to sustainable health [...] counseling and psychiatry and Dr Tejeda at [facility]. We would like to cover regular topics [...] software and direct typing Please excuse inadvertent life specialist or typing errors, or uncorrected word substitutions Although every attempt has been made by the provider to proofread this document, occasional misspellings and typographical errors may still be present Due to the previous pandemic, and the use of personal protective equipment (PPE) This may decrease voice recognition accuracy Inadvertent life specialist errors may occur 12/26/2023 Prediabetes (ICD-10 - [...] minimum of 6 months The most recent [place] [employer] of clinical endocrinologists and [place] [employer] of endocrinology guidelines recommend patients who [...] track activity level. Consider using apps like [employer], [employer], lose it, stick as needed for self-monitoring and weight management. Consider group exercises. Consider hiring a driver trainer. Regular exercise is mcginnis to sustainable health [...] counseling and psychiatry and Dr Tejeda at [facility]. We would like to cover regular topics [...] software and direct typing Please excuse inadvertent life specialist or typing errors, or uncorrected word substitutions Although every attempt has been made by the provider to proofread this document, occasional misspellings and typographical errors may still be present Due to the previous pandemic, and the use of personal protective equipment (PPE) This may decrease voice recognition accuracy Inadvertent life specialist errors may occur Plan Of Treatment Medication Medication Name Sig Start Date Stop Date Notes Mounjaro 2.5 MG/0.5ML 2.5mg Subcutaneous weekly; Duration: 30 days Progress Notes * JESUS LOPEZOB: [birth year] (70 yo F)Acc No.[id number]:12/26/2023 Patient: JESUS CRONIN Provider: Alvin FRANCO NP :[id number] A ge:68 Y S ex:Female Date:12/26/2023 Address:[address] [place], [place] [id number] Subjective: * Chief Complaints: * * HPI: [...] from Enoch Zapata PCP Patient works as Retired/[employer] Highest weight: now 273 lbs Lowest weight: 135-140 lbs Goal weight:150-160 lbs NADIA screening, Denies sxs Metabolic workup: Comprehensive labs July 2023 Electrolytes renal function LFTs are stable Total cholesterol 171, LDL 88, HDL 52, triglycerides 156 Has not had an echocardiogram recently. Previous TTE @ [facility] Diet: grAb and go, no portion control/calorie [...] F ibromyalgia - M79.7 6 . B PR 45.0-49.9, adult - Z68.42 7 . P [...] minimum of 6 months The most recent [place] [employer] of clinical endocrinologists and [place] [employer] of endocrinology guidelines recommend patients who [...] track activity level. Consider using apps like [employer], [employer], lose it, stick as needed for self-monitoring and weight management. Consider group exercises. Consider hiring a driver trainer. Regular exercise is mcginnis to sustainable health [...] counseling and psychiatry and Dr Tejeda at [facility]. We would like to cover regular topics [...] software and direct typing Please excuse inadvertent life specialist or typing errors, or uncorrected word substitutions Although every attempt has been made by the provider to proofread this document, occasional misspellings and typographical errors may still be present Due to the previous pandemic, and the use of personal protective equipment (PPE) This may decrease voice recognition accuracy Inadvertent life specialist errors may occur. Plan: * Treatment: * Images: Billing Information: * Visit Code: * Procedure Codes: * Electronic signature of PRANAY RIZZO LISAMED on 06/07/2025 at 02:31 PM EDT Sign off status: Pending * Provider: Alvin FRANCO NP Date: 0 12/26/2023 Generated for No diane/Yanni/Caitlin on: 1 02:31 PM EDT History and Physical Notes * HPI [...] needs clearance from PCP to go to [employer] [facility]. s/p [facility]AD 07/18/2023 12/26/2023, Weight , BMI 11/02/2023, Weight 234lbs, BMI (-7lbs) 09/13/2023, Weight 241lbs ,BMI 42, (-19lbs) 06/01/2023 Weight 260 lbs, BMI 46 (-13) 04/14/2023: Weight 273 lbs, BMI 48: Patient referred to us from Enoch Zapata PCP Patient works as Retired/[employer] Highest weight: now 273 lbs Lowest weight: 135-140 lbs Goal weight:150-160 lbs NADIA screening, Denies sxs Metabolic workup: Comprehensive labs July 2023 Electrolytes renal function LFTs are stable Total cholesterol 171, LDL 88, HDL 52, triglycerides 156 Has not had an echocardiogram recently. Previous TTE @ [facility] Diet: grAb and go, no portion control/calorie counting Exercise: Currently not tracking steps daily. Utilizes walker, min activity Non-smoker. quit 2017 ETOH use: Denies Examination Category Sub-Category Detail Notes Category Not es General Examination GENERAL APPEARANCE: in no ac kerline distress, well developed, well nourished HEAD: normocephalic, [...]
--- OUTSIDE RECORDS SUMMARY | 2024-02-21 06:45 | XMS_ITS ---
Author Organization [facility] [address] Address [address] [place] [address] Care Team Providers Care Director Of Creative Services Name Role Phone LUIS ENRIQUE FRANCO Unavailable [phone] Encounters Encounter Location Date Provider Diagnosis [facility] [address] [address] 02/21/2024 LUIS ENRIQUE FRANCO Plan Of Treatment No Information Progress Notes * JESUS LOPEZ SDOB: [birth year] (70 yo F)Acc No.[id number]:02/21/2024 Patient: Fox COOKKEYONNASUSHMAAN Fox Provider: Alvin FRANCO NP :1955 A ge:68 Y S ex:Female Date:02/21/2024 Address:[address] [place], [place] [id number] Subjective: * Chief Complaints: * * Medical History: Objective: * Vitals: Assessment: Plan: * Treatment: * Images: Billing Information: * Visit Code: * Procedure Codes: * Electronic signature of PRANAY FRANCO on 06/07/2025 at 02:30 PM EDT Sign off status: Pending * Provider: Alvin FRANCO NP Date: 0 02/21/2024 Generated for Printi ng/Faregulog/eTransmitting on: 1 02:30 PM EDT
--- OUTSIDE RECORDS SUMMARY | 2024-05-14 04:45 | XMS_ITS ---
Author Organization [facility] [address] Address [address] [place] [address] Care Team Providers Care Air Traffic Supervisor Name Role Phone LUIS ENRIQUE FRANCO Unavailable [phone] Encounters Encounter Location Date Provider Diagnosis [facility] [address] [address] 05/14/2024 LUIS ENRIQUE FRANCO Plan Of Treatment No Information Progress Notes * JESUS LOPEZ SDOB: [birth year] (70 yo F)Acc No.[id number]:05/14/2024 Patient: Fox COOKKEYONNASUSHMAAN Fox Provider: Alvin FRANCO NP :1955 A ge:69 Y S ex:Female Date:05/14/2024 Address:[address] [place], [place] [phone] Subjective: * Chief Complaints: * * Medical History: Objective: * Vitals: Assessment: Plan: * Treatment: * Images: Billing Information: * Visit Code: * Procedure Codes: * Electronic signature of PRANAY FRANCO on 06/07/2025 at 02:31 PM EDT Sign off status: Pending * Provider: Alvin FRANCO NP Date: Generated for Chaitanyai ng/Fasarah/eTransmitting on: 02:31 PM EDT
--- OUTSIDE RECORDS SUMMARY | 2025-06-07 14:31 | XMS_ITS | Patient Health Record ---
[facility] Address [address] [place] [address] Care Team Providers Care Hand Coper Name Role Phone LUIS ENRIQUE FRANCO Unavailable [phone] Allergies Allergen (clinical drug ingredient) Drug/Non Drug [...] Problem Obesity due to exces s calories (531587446) Other obesity due to excess calories (E66.09) Active confirmed Problem Hyperlipidemia (10326019) Hyperlipidemia , unspecified (E78.5) Active confirmed Problem Chronic pain syndrom e (423342264) Chronic pain syndrome (G89.4) Active confirmed Problem Essential hypertensi on (49004859) Essential (primary) hypertension (I10) Active confirmed Problem Fibromyalgia (775194326) Fibromyalgia (M79.7) Active confirmed Problem Body mass index 40+ - severely obese (677618849) Body mass index (BMI) 45.0-49.9, adult (Z68.42) Active confirmed Problem Pure hypercholesterolemia (242641784) Pure hypercholester olemia, unspecified (E78.00) Active confirmed Problem Body mass index 35.0 0 to 39.99 (360719035089213) Body mass index [BMI] 36.0-36.9, adult (Z68.36) Active confirmed Problem Body mass index 40+ - severely obese (148243883) BMI 45.0-49.9, adult (Z68.42) Active confirmed Problem Morbid obesity (535597038) Morbid obesity due to excess calories (E66.01) Active confirmed Plan Of Treatment No Information Insurance Providers Payer Name Payer Address Payer Phone Subscriber Number Group Number Insured Name Patient Relationship to Insured Coverage Start Date Coverage End Date [facility] Medicare Value PPO [address] [place] [address] [phone] [id number] JESUS LOPEZ Self - patient is the insured Medical (General) History Medical History History ICD Code hypertension hypercholesterolemia restless leg syndrome depression insomnia Surgical History Surgery Date(Month/Year) right knee replacement left knee replacement
--- NOTE | 2025-06-25 11:06 | HO.ANESPROP2 ---
Documented by User: Taylor Reyes NP 06/25/25 11:13 HPI - Anesthesia Eval Consult details Narrative: 70 yr old female for L3,L4,L5 and S1 Basivertebral Nerve Ablation) Intracept RFA Bilateral LE edema: following with [facility], advised to wear compression stocking consistently at 04/2025 visit [facility] Active Problems Active Problems: All Active Problems (Updated 05/08/25 @ 09:03 by Елена Key MD) Restless legs syndrome (RLS) (Acute) Insomnia (Acute) Hypersomnia (Acute) Snoring (Acute) Iliotibial band syndrome affecting left lower leg (Acute) Enthesopathy of hip region (Acute) Osteoarthritis of left shoulder (Acute) Left shoulder pain (Acute) Left hip pain (Acute) Vertebrogenic low back pain (Acute) Chronic pain syndrome (Acute) Postlaminectomy syndrome (Acute) Past Medical History Medical History (Updated 05/08/25 @ 09:03 by Елена Key MD) Restless legs syndrome (RLS) Insomnia Hypersomnia Snoring Dilatation of aorta Closed fracture of left distal fibula Spinal stenosis of lumbar region Anxiety Depression Hypertension Restless legs syndrome (RLS) Hyperlipidemia Prediabetes Fibromyalgia Surgical History Surgical History History of arthroscopic knee surgery History of laminectomy Social History Social History Are you a primary career technical supervisor to a significant other at home: No Do you presently have visiting nurse or other home services: No Comment: COUNTS CORRECT Patient Tobacco Use Status: Former Tobacco user Tobacco use type: Cigarette Second Hand Smoke Exposure: No Meds Allergies Allergy/AdvReac Type Severity Reaction Status Date / Time acetaminophen (From Tylenol) Allergy Intermediate Rash Verified 05/08/25 08:13 erythromycin base Allergy Intermediate Rash Verified 05/08/25 08:13 Home Medications ?Medication ?Instructions ?Recorded ?Confirmed ?Last Taken ?Type amlodipine 10 mg tablet (Norvasc) 10 mg PO DAILY 02/01/25 Unknown History aripiprazole 5 mg tablet (Abilify) 5 mg PO DAILY 02/01/25 Unknown History cyclobenzaprine 10 mg tablet 10 mg PO TID 02/01/25 Unknown History diclofenac sodium 75 mg 75 mg PO BID 02/01/25 Unknown History tablet,delayed release duloxetine 60 mg capsule,delayed 60 mg PO BID 02/01/25 Unknown History release (Cymbalta) fluticasone propionate 50 1 spray intranasal BID 02/01/25 Unknown History mcg/actuation nasal spray,suspension (Flonase Allergy Relief) guanfacine 1 mg tablet 1.5 mg PO BEDTIME 02/01/25 Unknown History hydroxyzine HCl 50 mg tablet 50 mg PO BID 02/01/25 Unknown History ixekizumab 80 mg/mL subcutaneous 80 mg subcut Q4W 02/01/25 Unknown History auto-injector (Taltz Autoinjector) losartan 100 mg tablet 100 mg PO BEDTIME 02/01/25 Unknown History mirtazapine 15 mg tablet (Remeron) 15 mg PO DAILY 02/01/25 Unknown History nystatin 100,000 unit/gram topical 1 appl topical DAILY 02/01/25 Unknown History powder omeprazole 20 mg capsule,delayed 20 mg PO DAILY 02/01/25 Unknown History release ondansetron HCl 4 mg tablet 4 mg PO Q8H 02/01/25 Unknown History ropinirole 4 mg tablet 4 mg PO BEDTIME 02/01/25 Unknown History simvastatin 20 mg tablet (Zocor) 20 mg PO BEDTIME 02/01/25 Unknown History pregabalin 50 mg capsule (Lyrica) 100 mg PO TID 03/28/25 Unknown History Exam Pertinent Lab Results Pertinent Lab Results: Sodium 133 - 145 mmol/L 139 Potassium 3.5 - 5.5 mmol/L 4.1 Chloride 96 - 110 mmol/L 108 CO2 21 - 32 mmol/L 25 Anion Gap 3 - 11 6 Glucose 70 - 100 mg/dL 75 BUN 5 - 25 mg/dL 26?High? Creatinine 0.50 - 1.10 mg/dL 0.83 eGFR >=60 mL/min/1.73m2 77 Labs above 03/2025 at [facility] Narrative Narrative: ECHO 05/2024 ? Left ventricle cavity size is normal. Left ventricular systolic function is in the normal range with an ejection fraction of 60-65%. Normal parameters of diastolic function. No wall motion abnormalities. Normal wall thickness. ? Right ventricle cavity is normal. Right ventricular systolic function is normal. ? Both atria are normal. ? There is no significant valvular disease. I believe the aortic valve is tricuspid but cannot be 100% certain. ? The Sinus of Valsalva is dilated (3.2 cm). The ascending aorta is dilated (4.0 cm). ? No significant change from June 25, 2020. Documented by User: Prince Tafoya MD 06/28/25 09:32 [facility] Past Medical History Medical History (Updated 05/08/25 @ 09:03 by Елена Key MD) Restless legs syndrome (RLS) Insomnia Hypersomnia Snoring Dilatation of aorta Closed fracture of left distal fibula Spinal stenosis of lumbar region Anxiety Depression Hypertension Restless legs syndrome (RLS) Hyperlipidemia Prediabetes Fibromyalgia Family History Family history of problems with anesthesia: No Surgical History Surgical History History of arthroscopic knee surgery History of laminectomy History of Problems with Anesthesia: No Social History Social History Are you a primary career technical supervisor to a significant other at home: No Do you presently have visiting nurse or other home services: No Comment: COUNTS CORRECT Patient Tobacco Use Status: Former Tobacco user Tobacco use type: Cigarette Second Hand Smoke Exposure: No Meds Allergies Allergy/AdvReac Type Severity Reaction Status Date / Time acetaminophen (From Tylenol) Allergy Intermediate Rash Verified 05/08/25 08:13 erythromycin base Allergy Intermediate Rash Verified 05/08/25 08:13 Home Medications ?Medication ?Instructions ?Recorded ?Confirmed ?Last Taken ?Type amlodipine 10 mg tablet (Norvasc) 10 mg PO DAILY 02/01/25 Unknown History aripiprazole 5 mg tablet (Abilify) 5 mg PO DAILY 02/01/25 Unknown History cyclobenzaprine 10 mg tablet 10 mg PO TID 02/01/25 Unknown History diclofenac sodium 75 mg 75 mg PO BID 02/01/25 Unknown History tablet,delayed release duloxetine 60 mg capsule,delayed 60 mg PO BID 02/01/25 Unknown History release (Cymbalta) fluticasone propionate 50 1 spray intranasal BID 02/01/25 Unknown History mcg/actuation nasal spray,suspension (Flonase Allergy Relief) guanfacine 1 mg tablet 1.5 mg PO BEDTIME 02/01/25 Unknown History hydroxyzine HCl 50 mg tablet 50 mg PO BID 02/01/25 Unknown History ixekizumab 80 mg/mL subcutaneous 80 mg subcut Q4W 02/01/25 Unknown History auto-injector (Taltz Autoinjector) losartan 100 mg tablet 100 mg PO BEDTIME 02/01/25 Unknown History mirtazapine 15 mg tablet (Remeron) 15 mg PO DAILY 02/01/25 Unknown History nystatin 100,000 unit/gram topical 1 appl topical DAILY 02/01/25 Unknown History powder omeprazole 20 mg capsule,delayed 20 mg PO DAILY 02/01/25 Unknown History release ondansetron HCl 4 mg tablet 4 mg PO Q8H 02/01/25 Unknown History ropinirole 4 mg tablet 4 mg PO BEDTIME 02/01/25 Unknown History simvastatin 20 mg tablet (Zocor) 20 mg PO BEDTIME 02/01/25 Unknown History pregabalin 50 mg capsule (Lyrica) 100 mg PO TID 03/28/25 Unknown History Exam Airway Mallampati Class: II TM Dist: <=3cm Neck ROM: Full Denture: Lower Loose/Missing/Broken Teeth: Yes, Upper and Lower Heart: ok Lungs: ok Assessment and Plan Assessment Anesthesia Assessment: Anesthesia Plan Discussed and Chart Reviewed Final Anesthetic Review Family History of Problems with Anesthesia: No History of Problems with Anesthesia: No NPO: Yes ASA Class: III Final Preanesthetic Review: No Changes in Pt Med Stat, Meds/Allgs Chart Reviewed, Consent Obtained/Reviewed and Anes Risks/Benef Reviewed Patient Risk: Intermediate Procedure Risk: Intermediate Anesthetic Plan Anesthetic Plan: GA and Agree w/ Assess. and Plan Disposition: Standard PACU
[2025-06-28] VITALS (11 sets, daily range): BP systolic 141–169; BP diastolic 89–108; PULSE 70–83; RESP 8–22; TEMP 36.6–36.7; O2SAT 94–97; BMI 40.7
--- NOTE | ~2025-06-28 | FL_ITS ---
EXAMINATION: FL GUIDANCE ONLY HISTORY: l3 l4 l5 s1 intracept COMPARISON: None available. TECHNIQUE: Fluoroscopy time: 7 minutes, 4 seconds. Cumulative Dose: 375.65 mGy. DAP: [id number]. Gycm2 Images: 17. FINDINGS: Fluoroscopic spot films of the lumbar spine demonstrate electrodes in the L3, L4, L5, and S1 vertebral bodies. FL/FL guidance in OR IMPRESSION: Fluoroscopy during procedure. Please see procedure report for additional information. Electronically signed by: Jono Alfaro MD 06/28/2025 02:35 PM [facility]
--- NOTE | 2025-06-28 08:11 | MHC.SHP ---
Pre-Procedural Eval Section A - 24 Hr Update-Section A only Date of Service: 06/28/25 The patient is an INPATIENT: No Changes since office visit: Yes Patient answered all questions The patient has been examined within 24 hours of the surgical procedure. The History & Physical has been completed within 30 days and I have reviewed it.: No Section B - Complete if H&P > 30 days Chief Complaint: Vertebrogenic low back pain Details of Present Illness: as above Relevant Family History (Specify if Yes): No Relevant Social History: None Present Medications: see Short Stay Collaborative assessment Medical History: No relevant PMH History of Previous Operations: Relevant previous surgery/procedure and date(s) Allergies: Allergies Allergy/AdvReac Type Severity Reaction Status Date / Time acetaminophen (From Tylenol) Allergy Intermediate Rash Verified 05/08/25 08:13 erythromycin base Allergy Intermediate Rash Verified 05/08/25 08:13 Review of Systems Sugical H&P ROS: Negative: Cardiovascular, Respiratory, Neurological, Psychiatric, Hem-Onc, Allergic/Immunologic, Gastrointestinal, Genitourinary, Integumentary, Endocrine and Eyes/Ears/Nose/Throat and Yes, Specify: Constitution (obesity) and Musculoskeletal (postlaminectomy syndrome, vertebrogenic low back pain) Exam Surgical H&P Exam: Normal: HEENT, Normal: Heart, Normal: Lungs, Normal: Extremities, Normal: Abdomen, Normal: Skin and Normal: Neurological Plan Diagnosis/Plan: Unchanged I have reviewed the history and physical and performed a pertinent physical examination on my patient. No changes have occurred unless specified. Time Spent With Patient Time: Total time managing care of this patient today _5___ minutes.
[2025-06-28] MEDS: Lactated Ringers 1,000 ML 100 ML IVCONT (08:28)
--- NOTE | 2025-06-28 11:14 | P.BOP_ITS ---
Brief Operative Note Date of Service: 06/28/25 Pre-op diagnosis: vertebrogenic low back pain Procedure: BVN RFA L3. L4. L5. S1 Surgeon: Raj Gonzales MD Anesthesia: GLMA Was an Refractory Technician used for this Procedure?: No Estimated blood loss (mL): 18 Condition: stable Disposition: PACU
--- NOTE | 2025-06-28 11:17 | P.OP_ITS ---
Operative Note Operative Note Date of Service: 06/28/25 Narrative: Basivertebral nerve (BVN) ablation? Intracept Procedure L3, L4, L5, S1 Informed consent was explained, risks and benefits were explained to the patient as well as alternatives. Risks delineated as risks of bleeding, infection, peripheral nerve damage, spinal cord damage, headache, epidural hematoma and other unspecified complications. Procedure Time Out: Patient ID confirmed, correct procedure to be performed, correct site and/or side for procedure , need for antibiotic administration, need for DVT prophylaxis, risk of fire.? The patient received cefazolin 2 g intravenously 25 minutes before onset of the procedure as well as [id number] mg intravenously push. The entire back was sterilely prepped with ChloraPrep twice and draped with sterile self adhesive utility towels and covered with full body drape.? Two sterilely draped C-arms were positioned in fixed anterior posterior and lateral positions alongside the patient's torso.? Sterilely draped C-arm was moved to visualize the target at the superolateral aspect of S1 vertebral body on the right C-arm was rotated to sq of the superior endplate at S1 and positioned in [place] positioned. Superior lateral right S1 pedicle was identified and the skin and try point was identified and infiltrated with mixture of 2% lidocaine and ropivacaine 0.5% one-to-one using 25 gauge 1- 1/2 inch needle. 22 gauge 5 in spinal needle was used to anesthetize the tract to the pedicle and periosteum and confirm the introducer cannula trajectory. A skin incision was made with 11 blade scalpel 5 mm. The introducer cannula with priti tip was inserted through the skin subcutaneous tissue and paraspinal muscles until bony contact was made. The position was checked in the AP and lateral plane. Using mallet the trocar was then advanced through the pedicle to the posterior aspect of vertebral body of S1 using a combination of AP and lateral views intermittently to ensure appropriate traversing of the pedicle and no breaching of the pedicle medial laterally or inferiorly. Once the trocar was in the posterior aspect of L5 vertebral body introducer cannula with steep bevel reach the vertebral body passing through the right pedicle the trocar was removed from the cannula and the curved cannula assembly with the knitting all J stylette was inserted. This pinwheel was rotated counter-clockwise permitting excursion of the J stylet. The curved cannula assembly than was advanced using a mallet in 1-2 mm increments. The J stylette was observed to traverse the vertebral body in AP and lateral views. Target was reached when tip of the stylette was 55% anterior to the posterior wall of the S1 in the lateral view and midway between the superior and inferior endplates and it across the midline of the S1 spinous process in the AP view. The stylette was then removed. The bipolar radiofrequency RF probe was inserted into the introducer cannula in its ablation positioned. This pain we will was rotated clockwise to retract the PE EK sleeve to expose the proximal electrode on the radiofrequency probe. The BVN was then ablated using the standard algorithm for 15 minutes. Sterilely draped C-arm was moved to visualize the target at the superolateral aspect of the L5 vertebral body. The C-arm was rotated to square off the superior endplate at L5 and rotated left to obtain an oblique view. The superolateral left L5 pedicle was identified, and the skin entry point identified and infiltrated with mixture of 2% lidocaine with ropivacaine 0.5% one to one using a 25- gauge 1-1/2 inch needle. A 22-gauge 5-inch spinal needle was used to anesthetize the track to the pedicle and periosteum and confirm the introducer cannula trajectory. A skin incision was made with 11 blade scalpel 5 mm. The introducer cannula with bevel tip was then introduced through the skin, subcutaneous tissue and paraspinal muscle until bony contact was made. The position was checked in the AP and lateral plane. Using a mallet, the trocar was then advanced through the pedicle to the posterior aspect of the vertebral body using a combination of AP and lateral views to ensure appropriate traversing of the pedicle and no breaching of the pedicle medially or inferiorly. Once the trocar was in the posterior aspect of the L5 vertebral body then introducer cannula with tip bevel reached the vertebral body passing through the left pedicle, the trocar was removed from the cannula and the curved cannula assembly with the nitinol J-stylet was inserted. The spin wheel was rotated counterclockwise permitting excursion of the J- stylet. The curved cannula assembly was then advanced using a mallet in 1-2 mm increments. The J-stylet was observed to traverse the vertebral body in the AP and lateral views. Target was reached when the tip of the stylet was 30 % anterior of the posterior wall of the L5 in the lateral view (midway between the superior and inferior endplates) and it crossed the midline of the L5 spinous process in the AP view. The stylet was then removed. The bipolar radiofrequency (RF) probe was inserted into the introducer cannula in its ablation position. The spin wheel was rotated clockwise to retract the PEEK sleeve to expose the proximal electrode on the radiofrequency probe. The BVN was then ablated using [employer]?s standard RFG algorithm for 7 minutes.? While the ablation was occurring at below level the C-arm was moved to visualize the target at the superolateral aspect of the L4 vertebral body. The C-arm was rotated to square off the superior endplate at L4 . The superolateral ?right L4 pedicle was identified, and the skin entry point identified and infiltrated with mixture of 2% lidocaine with ropivacaine 0.5% one to one using a 25- gauge 1- 1/2 inch needle. A 22-gauge 5-inch spinal needle was used to anesthetize the track to the pedicle and periosteum and confirm the introducer cannula trajectory. A skin incision was made with 11 scalpel blade 5 mm. The introducer cannula with bevel tip was then introduced through the skin, subcutaneous tissue and paraspinal muscle until bony contact was made. The position was checked in the AP and lateral plane. Using a mallet, the trocar was then advanced through the pedicle to the posterior aspect of the vertebral body using a combination of AP and lateral views to ensure appropriate traversing of the pedicle and no breaching of the pedicle medially or inferiorly. Once the trocar was in the posterior aspect of the L4 vertebral body, the trocar was removed from the cannula and the curved cannula assembly with the nitinol J-stylet was inserted. The spin wheel was rotated counterclockwise permitting excursion of the J- stylet. The curved cannula assembly was then advanced using a mallet in 1-2 mm increments. The J-stylet was observed to traverse the vertebral body in the AP and lateral views. Target was reached when the tip of the stylet was 20 % anterior of the posterior wall of the L4 on the lateral view and it crossed the midline of the L4 spinous process in the AP view. The stylet was then removed. The bipolar radiofrequency (RF) probe was removed from the previous vertebral body, the tip cleaned and was inserted into the introducer cannula in its ablation position. The spin wheel was rotated clockwise to retract the PEEK sleeve to expose the proximal electrode on the radiofrequency probe. The BVN was then ablated using [employer]?s standard RFG algorithm for 7 minutes. The radiofrequency ablation of the L3 basivertebral nerve was performed from the right side in the similar fashion as described above using transpedicular approach.
== END 2025-06-28 13:14 | disposition home or self-care (01) ==
PROVIDERS: PCP Internal Medicine; Visit Provider Anesthesiology
PROC: (CPT 64628; principal; 2025-06-28 09:00)
DX: M54.51 Vertebrogenic low back pain (principal); M96.1 Postlaminectomy syndrome, not elsewhere classified; G89.4 Chronic pain syndrome; M76.32 Iliotibial band syndrome, left leg; M76.899 Other specified enthesopathies of unspecified lower limb, excluding foot; M25.552 Pain in left hip; M25.562 Pain in left knee; M25.512 Pain in left shoulder; M19.012 Primary osteoarthritis, left shoulder; Z88.1 Allergy status to other antibiotic agents; Z88.8 Allergy status to other drugs, medicaments and biological substances; Z98.890 Other specified postprocedural states
CPT/HCPCS: 64628; 64629 ×2; C1889; J0690; J1100; J2003; J2405; J2704; J2795; J3010; J3374

== ENCOUNTER → 2025-06-28 06:56 | Outpatient (BNV) | payer OTHER, SELFPAY | PROVIDERS: PCP Internal Medicine; Visit Provider Anesthesiology | DX: M54.51 Vertebrogenic low back pain (principal) | CPT/HCPCS: 64628; 64629 ==

== ENCOUNTER 2025-07-17 10:56 | Outpatient (AMB) | payer OTHER, SELFPAY ==
[2025-07-17 11:05] VITALS: BP 171/88; PULSE 81; RESP 16; O2SAT 93; BMI 41.4
--- NOTE | 2025-07-17 11:05 | MHC.OFFVIS ---
Vital Signs 07/17/25 11:05 Height 5 ft 3 in Weight 234 lb BMI 41.4 BP 171/88 H Blood Pressure Location Lt brachial Position Sitting Respiration 16 Pulse 81 Pulse Source Pulse Oximeter Pulse Oximetry (%) 93 Oxygen Delivery Method Room Air Intake Visit Reasons: S/p L3, L4, L5, and S1 BVN (Intracept) 06/28/25 Drug Abuse Treatment Specialist Required: No Allergies acetaminophen (From Tylenol) Allergy (Intermediate, Verified 07/17/25 11:10) Rash erythromycin base Allergy (Intermediate, Verified 07/17/25 11:10) Rash HPI Comments Details: Elmira is back in my office for the follow-up and suture removal. She presents today here after BVN RFA of L3-L4 L5 and S1 with very good results. She reports minimal pain, improvement with flexing forward, improvement with prolonged sitting. The back of the patient was exposed minimal redness but no swelling no pathological discharge in the area of the sutures. The area of the sutures was washed with ChloraPrep and sutures were removed using sterile scissors. Sterile dressing Tegaderm was applied. Patient was explained about hygiene and activities limitations. We discussed today the needs to get involved in physical therapy for the lower back to improve the core muscles of the patient. I will send her for physical therapy. Patient expressed understanding. Prior: I examined her MRI which was uploaded in our system and there are Modic type 2 changes starting from L3 going all the way down to S1. We discussed again today possibility of treating her pain with prolonged sitting by applying BVN RFA L3, L4, L5, S1. Patient agreed to go for the procedure. As of the pain in her left hip with radiation down to the left knee it is related to enthesopathy of the iliotibial band. I recommended her OTC lidocaine patch and I will send her [place] [facility] [place] She also complain on pain in the left shoulder. Physical exam still is below. She reported to intra-articular shoulder injections being performed a orthopedic surgery office. Those procedures were image guided. First procedure resulted in moderate pain improvement, 2nd procedure did not improve pain at all. I offered her pain management procedure: Diagnostic suprascapular left nerve block without sedation. Patient agreed to try. We will discuss possibility of treatment of her pain with sprint PNS once and if the diagnostic nerve block will be successful. Prior: Severe pain in the neck pain in the lower back pain in the left groin. She reports pain with prolonged sitting exacerbation and bending over exacerbation. She had multiple images of her lumbar spine 1 of the MRIs from 2022 she brought with herself. The report is from [facility] . On that MRI there is demonstration of the Modic type 1 changes at L3-L4 and Modic type 3 endplate changes at L2-L3. However patient states that the risk more fresh MRI available at [facility]. I recommended the patient to bring us the report and the disc of that MRI. She was subject of multiple physical therapy with [facility] physical therapy office none of them were helpful for her. She tried 10s unit it was not helpful for her. She was under care of [facility] pain management received multiple nerve blocks and epidural steroid injections and even attempted spinal cord stimulator trial. According to the patient none was helpful for the patient's pain. PENDING SALE TO [facility] Medical History (Updated 05/08/25 @ 09:03 by Елена Key MD) Restless legs syndrome (RLS) Insomnia Hypersomnia Snoring Dilatation of aorta Closed fracture of left distal fibula Spinal stenosis of lumbar region Anxiety Depression Hypertension Restless legs syndrome (RLS) Hyperlipidemia Prediabetes Fibromyalgia Surgical History History of arthroscopic knee surgery History of laminectomy Social History Are you a primary clinical care coordinator to a significant other at home: No Do you presently have visiting nurse or other home services: No Comment: COUNTS CORRECT Patient Tobacco Use Status: Former Tobacco user Tobacco use type: Cigarette Second Hand Smoke Exposure: No Review of Systems Const All systems reviewed & are unremarkable except as noted in HPI and below ENT Reports Normal hearing present Neuro Reports Normal hearing present, Denies Abnormal speech present, Denies confusion and Denies Sensory deficit (Neuro) Psych Denies confusion Physical Exam Vital Signs: Last Vital Signs Pulse 81 07/17/25 11:05 Resp 16 07/17/25 11:05 BP 171/88 H 07/17/25 11:05 Pulse Ox 93 07/17/25 11:05 Oxygen Delivery Method Room Air 07/17/25 11:05 BMI result Body Mass Index 41.4 Const General: no acute distress; No confusion Nutritional Appearance: obese morbidly obese Orientation/consciousness: patient oriented x3 and No confusion Eyes General: appearance normal, both eyes and all related structures Pupils: Equal, round and reactive pupils present EOM: EOMs intact bilaterally Neck Neck: Yes full ROM Chest Chest palpation & inspection: normal inspection of the chest Resp Effort & Inspection: normal respiratory effort, able to speak in complete sentences, normal respiratory pattern, no audible wheezes and no cough Cardio Jugular venous distension: no JVD GI Inspection: Yes normal to inspection Back/Spine/Pelvis Other: There is very well-healed thin scar in the projection of the L4-5 lumbar vertebras, there is no redness no pathological discharge. There is no tenderness on palpation in the projection of the scar. Neuro General: patient oriented x3, gait normal and No confusion Cranial nerves: Yes CN's II-XII intact bilaterally, Yes Equal, round and reactive pupils present, Yes Normal hearing present and Yes Ability to bilaterally elevate shoulders present Speech: No Abnormal speech present Gait exam (Neuro): Normal gait present Motor exam (neuro): 5/5 motor strength present throughout Sensory Exam: No Sensory deficit (Neuro) Extrem Other: Severe tenderness on palpation in the projection of the left shoulder. Severe limited range of motion of the left shoulder. General: No pedal edema Psych Speech and movement: Normal speech and movement present Affect: normal affect Attitude: cooperative Thought process: Normal thought process present Thought content: Normal thought content present Insight: Good insight present (Psych) Judgement: Good judgement present (Psych) Assessment & Plan Assessment & Plan (1) Left hip pain: Code(s): M25.552 - Pain in left hip Category: Medical (2) Postlaminectomy syndrome: Code(s): M96.1 - Postlaminectomy syndrome, not elsewhere classified Category: Medical (3) Chronic pain syndrome: Code(s): G89.4 - Chronic pain syndrome Category: Medical (4) Vertebrogenic low back pain: Code(s): M54.51 - Vertebrogenic low back pain Category: Medical (5) Left shoulder pain: Code(s): M25.512 - Pain in left shoulder Category: Medical (6) Osteoarthritis of left shoulder: Code(s): M19.012 - Primary osteoarthritis, left shoulder Category: Medical (7) Enthesopathy of hip region: Code(s): M76.899 - Other specified enthesopathies of unspecified lower limb, excluding foot Category: Medical (8) Iliotibial band syndrome affecting left lower leg: Code(s): M76.32 - Iliotibial band syndrome, left leg Category: Medical Plan Elmira is doing very well after BVn RFA L3, L4, L5, S1. I explained to her importance of follow-up physical therapy for this procedure. Patient expressed understanding. She is scheduled for consultation for shoulder replacement surgery. Orders: Orders PT Evaluation and Treatment Today M54.51 - Vertebrogenic low back pain Coding Level of Care Code Est Pt Level 3 (66909) Diagnoses Left hip pain M25.552 Postlaminectomy syndrome M96.1 Chronic pain syndrome G89.4 Vertebrogenic low back pain M54.51 Left shoulder pain M25.512 Osteoarthritis of left shoulder M19.012 Enthesopathy of hip region M76.899 Iliotibial band syndrome affecting left lower leg M76.32
== END 2025-07-17 11:25 | disposition home or self-care (01) ==
LOC: HO.PMC 10:56
PROVIDERS: PCP Internal Medicine; Visit Provider Anesthesiology
DX: M25.552 Pain in left hip (principal); M25.512 Pain in left shoulder; M96.1 Postlaminectomy syndrome, not elsewhere classified; M76.32 Iliotibial band syndrome, left leg; G89.4 Chronic pain syndrome; M54.51 Vertebrogenic low back pain; M19.012 Primary osteoarthritis, left shoulder; M76.899 Other specified enthesopathies of unspecified lower limb, excluding foot
CPT/HCPCS: 99213

== ENCOUNTER → 2025-07-17 10:56 | Outpatient (BNVA) | payer OTHER, SELFPAY | PROVIDERS: PCP Internal Medicine; Visit Provider Anesthesiology | DX: M19.012 Primary osteoarthritis, left shoulder (principal); M76.892 Other specified enthesopathies of left lower limb, excluding foot; M96.1 Postlaminectomy syndrome, not elsewhere classified; G89.4 Chronic pain syndrome; M54.51 Vertebrogenic low back pain; M76.32 Iliotibial band syndrome, left leg | CPT/HCPCS: 99212 ==